=== PATIENT | male | born 1930 | race Caucasian/White ===

== ENCOUNTER → 2016-12-28 | Day surgery (SDC) | payer MEDICARE ==
[~2016-12-28] VITALS: Ht 162.6 cm; Wt 79.0 kg
[~2016-12-28] MED LIST: ACETAMINOPHEN 1000 MG/100 ML VIAL IV ONE; AMLO10TA2 PO; ASPI81TA19; CARV12.52 PO; CHLORHEXIDINE GLUCONATE 2 % 1 PACK (2 CLOTHS) TOPICAL PRN; DO NOT ADM ANY ANTICOAGULANT DRUGS PRN; FURO40TA PO; FUROSEMIDE 40 MG/4 ML VIAL ONE; INSULIN HUMAN REGULAR 1,000 UNITS/10 ML VIAL SQ PRN; IOHEXOL 300 MG/ML 50 ML BTL (for RAD DIAG) ONE; LACTATED RINGER'S 1000 ML IV PRN; LEVO500T8 PO; LEVOFLOXACIN 500 MG PREMIX INJ 100 ML IV SCH; LOSA50TA PO; MAGN1TAB14 PO; MAGN500T4 PO; METOPROLOL TARTRATE 25 MG TAB PO PRN; OMEP20TA PO; ONDANSETRON HCL 4 MG/2 ML VIAL IV PUSH ONE; ONDANSETRON HCL 4 MG/2 ML VIAL IV PUSH PRN; PERC5TAB12 PO; PHENYLEPH/NS 1000 MCG/10 ML SYR IV ONE; POTA-243 PO; POTA-255 PO; POVIDONE IODINE 5% (ANTISEPSIS KIT) 4 APPLICATIONS EACH NARE PRN; PROPOFOL 200 MG/20 ML AMP IV ONE; SIMV20TA PO; SODIUM CHLORID 0.9% 500 ML IV PRN; oxyCODONE/ACETAMINOPHEN 5 MG/325 MG TAB PO PRN
[2016-12-28 09:38] VITALS: BP 158/79; PULSE 68; RESP 16; TEMP 97.5; O2SAT 98
[2016-12-28 09:42] LABS: AUTOMATED NEUTROPHIL # 3.2 TH/MM3 (1.8-7.7); BASOPHIL % 0.5 % (0.0-2.0); EOSINOPHIL # 0.2 TH/MM3 (0-0.4); EOSINOPHIL % 3.4 % (0.0-4.0); HEMATOCRIT 29.6 % (39.0-51.0); LYMPH % 38.9 % (9.0-44.0); LYMPHOCYTE # 2.8 TH/MM3 (1.0-4.8); MEAN CELL VOLUME 88.4 FL (80.0-100.0); MEAN CORPUSCULAR HEMOGLOBIN 29.8 PG (27.0-34.0); MEAN CORPUSCULAR HGB CONC 33.7 % (32.0-36.0); MONO % 12.3 % (0.0-8.0); NEUT % 44.9 % (16.0-70.0); PLATELET COUNT 159 TH/MM3 (150-450); RED BLOOD COUNT 3.35 MIL/MM3 (4.50-5.90); RED CELL DISTRIBUTION WIDTH 15.1 % (11.6-17.2); WHITE BLOOD COUNT 7.1 TH/MM3 (4.0-11.0)
[2016-12-28 09:46] LABS: HEMO FLAGS AUTO DIFF
[2016-12-28 10:18] LABS: BANDS 1 % (0-6); EOSINOPHILS 4 % (0-4); NEUTROPHIL # MANUAL DIFF 2.8 TH/MM3 (1.8-7.7); POLYS (SEG NEUTROPHILS) 39 % (16-70); WBC DIFF SAMPLE 100
[2016-12-28 10:20] LABS: PLATELET ESTIMATE SMEAR NORMAL (NORMAL); PLATELET MORPHOLOGY NORMAL (NORMAL); ROULEAUX PRESENT (NORMAL)
[2016-12-28 10:21] LABS: SCAN/DIFF FINAL DIFF MANUAL
--- NOTE | 2016-12-28 14:54 | PD.OP ---
Operative Report Date of Surgery: December 28, 2016 Preoperative Diagnosis: (1) Renal mass, left Postoperative Diagnosis: (1) Renal mass, left (2) Ureteral mass Procedure: Cystoscopy, transurethral resection of left distal ureteral tumor, left retrograde pyelogram, left ureteroscopy/renoscopy and placement of left ureteral stent Anesthesia: General Surgeon: Nir Mcelroy Web Producer(s): None Operation and Findings: Indication for procedure: Case of a pleasant 86 year-old gentleman with history gross painless hematuria. Recent CT scan demonstrated a greater than 4 cm mass within the left kidney suspicious for malignancy. Presents now for cystoscopy, left retrograde pyelogram and left ureteroscopy with biopsy. Operative procedure in detail: Patient was brought to the operating room suite and placed supine on the cystoscopy table. He was then repositioned in the dorsal lithotomy position and prepped and draped in normal sterile fashion. After an appropriate timeout was undertaken I proceeded with cystoscopic evaluation utilizing the rigid cystoscope with the 20 Brazilian sheath and the 30 lens. The urethra was patent without stricture formation the prostatic urethra was nonobstructing further passive cystoscope within the urinary bladder revealed an approximately 1 cm frondular mass at the left ureteral orifice. No other abnormalities were noted. The cystoscope was exchanged for the second scope with a 24 Brazilian cutting loop and a transurethral resection of this tissue mass was accomplished. The tissue was sent off to pathology. I next exchanged the resectoscope back to the cystoscope and was able to pass a sensor 0.035 wire up the patient's left ureter into the left renal pelvis under fluoroscopic guidance. A 6 Brazilian open-ended catheter was advanced over the wire and the wire was withdrawn. A retrograde Pyelogram study was then performed which demonstrated a filling defect within the left renal pelvis as well as a hydronephrotic left ureter. The guidewire was reintroduced and the open-ended catheter was removed. A ureteral access sheath was then advanced over the wire to engage the distal ureter and the obturator was withdrawn along with the wire. The flexible ureteroscope was then easily advanced through the access sheath up the patient's left ureter and complete left ureteroscopy and renoscopy was performed. The patient was noted to have a frondular tumor mass involving the left renal pelvis consistent with the CT scan findings. Also noted was irregular frondular tissue involving the distal left ureter just proximal to the ureteral orifice. I next withdrew the ureteroscope and the guidewire was reintroduced up the access sheath to the left renal pelvis and the access sheath removed. The cystoscope was reintroduced and the guidewire backloaded the scope and then a 6 Brazilian 24 cm watermelon inspector double-J stent was passed on both cystoscopic and fluoroscopic guidance without difficulty. Once the stent was in proper position the trailing string was removed. The guidewire and cystoscope were then withdrawn and a 16 Brazilian 10 cc George catheter was placed and connected to gravity drainage. The patient tolerated the procedures without complications and was transferred to the PACU in satisfactory condition. Nir Mcelroy MD December 28, 2016 14:54
[2016-12-28 16:55] VITALS: BP 154/87; PULSE 68; RESP 16; TEMP 97.4; O2SAT 96
== END | disposition home or self-care (01) ==
LOC: HSDC 08:45
PROVIDERS: ATTEND Urology
DX: C67.9 Malignant neoplasm of bladder, unspecified (principal); R31.0 Gross hematuria; C79.9 Secondary malignant neoplasm of unspecified site
CPT/HCPCS: 00910; 00912; 52235; 52332; 52351; 74420; 85007; 85027; 88305; C1769; J0131; J1956; J2370; J2405; J3010; J7120; Q9967; J1940

== ENCOUNTER 2017-03-04 11:11 | Inpatient (IN) | payer MEDICARE ==
[~2017-03-04] VITALS: Ht 162.6 cm; Wt 83.4 kg
[~2017-03-04 11:11] MED LIST changes: -ACETAMINOPHEN 1000 MG/100 ML VIAL IV ONE; -ASPI81TA19; +ASPI81TA19 PO; -CHLORHEXIDINE GLUCONATE 2 % 1 PACK (2 CLOTHS) TOPICAL PRN; -DO NOT ADM ANY ANTICOAGULANT DRUGS PRN; -FURO40TA PO; -FUROSEMIDE 40 MG/4 ML VIAL ONE; -INSULIN HUMAN REGULAR 1,000 UNITS/10 ML VIAL SQ PRN; -IOHEXOL 300 MG/ML 50 ML BTL (for RAD DIAG) ONE; -LACTATED RINGER'S 1000 ML IV PRN; -LEVO500T8 PO; -LEVOFLOXACIN 500 MG PREMIX INJ 100 ML IV SCH; -MAGN1TAB14 PO; -MAGN500T4 PO; -METOPROLOL TARTRATE 25 MG TAB PO PRN; -ONDANSETRON HCL 4 MG/2 ML VIAL IV PUSH ONE; -ONDANSETRON HCL 4 MG/2 ML VIAL IV PUSH PRN; -PERC5TAB12 PO; -PHENYLEPH/NS 1000 MCG/10 ML SYR IV ONE; -POTA-243 PO; -POTA-255 PO; -POVIDONE IODINE 5% (ANTISEPSIS KIT) 4 APPLICATIONS EACH NARE PRN; -PROPOFOL 200 MG/20 ML AMP IV ONE; -SIMV20TA PO; -SODIUM CHLORID 0.9% 500 ML IV PRN; -oxyCODONE/ACETAMINOPHEN 5 MG/325 MG TAB PO PRN
[2017-03-08] MEDS ORDERED: SIMV20TA PO (10:19)
[2017-03-08] MEDS ORDERED: FURO1TAB60 PO (10:20)
[2017-03-08] MEDS ORDERED: COZA50TA PO (10:21)
[2017-03-08] MEDS ORDERED: MAGN400T2 PO (10:21)
[2017-03-12] MEDS ORDERED: SODIUM CHLORID 0.9% 500 ML IV PRN (07:15)
[2017-03-12] MEDS ORDERED: POVIDONE IODINE 5% (ANTISEPSIS KIT) 4 APPLICATIONS EACH NARE PRN (07:15)
[2017-03-12] MEDS ORDERED: CHLORHEXIDINE GLUCONATE 2 % 1 PACK (2 CLOTHS) TOPICAL PRN (07:15)
[2017-03-12] MEDS ORDERED: INSULIN HUMAN REGULAR 1,000 UNITS/10 ML VIAL SQ PRN (07:15)
[2017-03-12] MEDS ORDERED: METOPROLOL TARTRATE 25 MG TAB PO PRN (07:15)
[2017-03-12] MEDS ORDERED: LEVOFLOXACIN 500 MG PREMIX INJ 100 ML IV PRN (07:30)
[2017-03-12 07:33] VITALS: BP 168/69; PULSE 60; RESP 16; TEMP 97.6; O2SAT 98
[2017-03-12] MEDS: LACTATED RINGER'S 1000 ML IV PRN (07:35)
[2017-03-12] MEDS ORDERED: fentaNYL CITRATE 250 MCG/5 ML AMP ONE ×2 (08:18→14:59)
[2017-03-12] MEDS ORDERED: MIDAZOLAM HCL 2 MG/2 ML VIAL ONE (08:18)
[2017-03-12] MEDS ORDERED: ACETAMINOPHEN 1000 MG/100 ML VIAL IV ONE (08:18)
[2017-03-12] MEDS ORDERED: HYDROmorphone HCL PF 2 MG/ML VIAL ONE (08:19)
[2017-03-12] MEDS ORDERED: DICLOFENAC SODIUM 37.5 MG/ML VIAL IV PUSH ONE (08:19)
[2017-03-12] MEDS ORDERED: DEXAMETHASONE SOD PHOS 4 MG/ML VIAL ONE (08:19)
[2017-03-12] MEDS ORDERED: FAMOTIDINE 20 MG/2 ML VIAL ONE (08:19)
[2017-03-12] MEDS ORDERED: ALBUMIN HUMAN 25% 12.5 GM/50 ML BAGP IV ONE (08:20)
[2017-03-12] MEDS ORDERED: LACTATED RINGER'S 1000 ML INJ 1,000 ML IV ONE (12:00)
[2017-03-12] MEDS ORDERED: NORMOSOL R INJ 3,000 ML IV ONE (12:00)
[2017-03-12] MEDS ORDERED: PROPOFOL 200 MG/20 ML AMP IV ONE (12:00)
[2017-03-12] MEDS ORDERED: ONDANSETRON HCL 4 MG/2 ML VIAL IV PUSH ONE (12:00)
[2017-03-12] MEDS ORDERED: PHENYLEPH/NS 1000 MCG/10 ML SYR IV ONE (12:00)
[2017-03-12 13:37] LABS: HEMATOCRIT 25.9 % (39.0-51.0); REVIEW FLAG FINAL
[2017-03-12] MEDS ORDERED: [UNRECOGNIZED DRUG - REMARK] IV SCH ×2 (14:02)
[2017-03-12] MEDS ORDERED: SUGAMMADEX SODIUM 200 MG/2 ML VIAL IV PUSH ONE ×2 (14:59)
[2017-03-12 16:12] LABS: AUTOMATED NEUTROPHIL # 7.4 TH/MM3 (1.8-7.7); BASOPHIL % 0.2 % (0.0-2.0); EOSINOPHIL % 0.1 % (0.0-4.0); HEMATOCRIT 31.1 % (39.0-51.0); HEMO FLAGS DIFF FINAL; LYMPH % 14.4 % (9.0-44.0); LYMPHOCYTE # 1.3 TH/MM3 (1.0-4.8); MEAN CELL VOLUME 86.9 FL (80.0-100.0); MEAN CORPUSCULAR HGB CONC 34.5 % (32.0-36.0); MONO % 5.7 % (0.0-8.0); NEUT % 79.6 % (16.0-70.0); PLATELET COUNT 114 TH/MM3 (150-450); RED BLOOD COUNT 3.58 MIL/MM3 (4.50-5.90); RED CELL DISTRIBUTION WIDTH 16.2 % (11.6-17.2); WHITE BLOOD COUNT 9.3 TH/MM3 (4.0-11.0)
[2017-03-12] MEDS: LACTATED RINGER'S 1000 ML INJ 1,000 ML IV SCH (16:26)
--- NOTE | 2017-03-12 16:26 | PD.OP ---
Operative Report Date of Surgery: Mar 12, 2017 Preoperative Diagnosis: (1) Renal mass, left (2) Urothelial carcinoma of kidney Postoperative Diagnosis: (1) Renal mass, left (2) Urothelial carcinoma of kidney Procedure: Cystoscopy, transurethral incision of left distal ureter, fulguration of several small bladder lesions consistent with seeding of transitional cell carcinoma and a robot-assisted laparoscopic left nephro ureterectomy Anesthesia: General Surgeon: Nir Mcelroy Custom Car Builder(s): Alex Ramos Operation and Findings: Indication for procedure: This is a pleasant 86 year-old gentleman who was recently discovered to have 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 Operative procedure in detail: Patient was brought to the operating suite and placed supine on the OR table. He was then placed under general endotracheal anesthesia. He was then repositioned in the dorsolithotomy position and prepped and draped in normal sterile fashion. After appropriate timeout was undertaken I proceeded with cystoscopic evaluation utilizing the rigid cystoscope with a 20 Guatemalan sheath and 30 lens. The previously placed left double-J stent could be seen protruding from the left ureteral orifice. Also noted were several small less than 1 mm lesions involving the posterior right and left lateral wolfe of the bladder consistent with seeding of the transitional cell carcinoma. The 24 Guatemalan resectoscope set up with cutting loop was then utilized and these small tiny recurrent lesions which were very superficial were fulgurated. I then changed out the loop for a Hernandez knife and performed a transurethral incision around the left ureteral orifice. I extended the incision circumferentially down until the underlying perivesical fat was seen. The bladder was drained of fluid and a George catheter placed and connected to gravity drainage. The patient was next repositioned in the right lateral recumbent position and the table flexed to separate the pelvis from the thorax. The patient was held in this position with a beanbag and all pressure points were adequately padded. I next proceeded with creating a pneumoperitoneum with severe as needle in standard fashion. Subsequent to this the camera port was placed with the visual obturator and a 3 remaining robotic arm ports as well as a pastrycook's assistant port placed under direct vision. With all the ports position and the robot was docked in standard fashion. Repositioned myself over at the [place] console my associate Dr. Alex Ramos remained at the bedside to actuarial assistant. I then proceeded to mobilize left: By cutting along the line of Toldt and reflecting the colon medially. The kidney was then mobilized superiorly laterally and inferiorly. After tedious dissection the hilar vessels were identified however took some time due to significant amount of perirenal fat in the area. The vessels were divided ligated with the endovascular stapling device. The ureter was identified and mobilized inferiorly as much as possible with the robot. The remaining attachments of the left kidney were divided ligated and the specimen placed in Endo Catch specimen bag. While freeing up the activity in the proximal ureter disrupted from the kidney itself thus decision was made to place the specimen in the specimen bag. Next the peritoneum was dropped down to 5 mmHg and careful specialty was made factor bleeding and was noted. The patient did have steady oozing of blood throughout the procedure and estimated blood loss was approximately 4 units. He did receive 4 units packed red blood cells as well as 2 units fresh frozen plasma during the procedure. The robot was undocked and the robotic ports were removed. The pastrycook's assistant port as well as a Report left in place to facilitate extending the incision to remove the specimen whereby both these ports sites were connected with a #10 blade. The specimen was easily delivered within this Endo Catch specimen bag. I then was able to insert my hand and track the ureter inferiorly down to the bladder tumors attachment and was easily able to pluck the ureter off the bladder. The ureter was then sent off to pathology along with the kidney specimen. Careful specialty is made factor bleeding and was noted. A 10 mm JACE drain was then placed through one of the robotic port sites and connected to a bulb syringe. The remaining to robotic port sites were closed with a skin stapling device and the newly created lower midline incision was closed utilizing a #1 PDS suture to reapproximate the deep fascia and the skin stapling device to reapproximate the skin edges. Sterile dressings were placed over the wounds. The patient tolerated the procedures without compensations and was transferred to the PACU in satisfactory condition. Nir Mcelroy MD Mar 12, 2017 16:26
[2017-03-12] MEDS ORDERED: DO NOT ADM ANY ANTICOAGULANT DRUGS PRN (16:28)
[2017-03-12] MEDS ORDERED: Post-op Orders (for Pharmacy) MISC XX ONE (16:30)
[2017-03-12] MEDS ORDERED: HYDROmorphone HCL PCA 6 MG/30 ML IV SCH (16:30)
[2017-03-12] MEDS ORDERED: NALOXONE HCL 0.4 MG/ML AMP IV PRN ×2 (16:30)
[2017-03-12] MEDS ORDERED: SODIUM CHLORIDE 0.9% FLUSH 10 ML FLUSH IV FLUSH PRN ×2 (16:30→18:45)
[2017-03-12 16:35] LABS: APTT (PATIENT) 25.9 SEC (24.3-30.1); INTERNATIONAL NORMALIZED RATIO 1.2 RATIO; PROTHROMBIN TIME - PATIENT 13.9 SEC (9.8-11.6)
--- NOTE | 2017-03-12 17:07 | RADRPT ---
EXAM DATE/TIME: 03/12/2017 16:38 [facility] COMPARISON: CHEST SINGLE AP, May 03, 2016, 10:14. INDICATIONS : Post central line placement. MEDICAL HISTORY : None. SURGICAL HISTORY : Pacemaker. CABG. ENCOUNTER: Initial ACUITY: 1 day PAIN SCORE: Non-responsive. LOCATION: Bilateral chest FINDINGS: Pacemaker device is noted with control pack over the left chest. Right neck sheath and central line a re present in good position. There is no evidence of pneumothorax or other complication of placement. There is mild vascular congestion and central edema. Heart size is borderline CONCLUSION: Satisfactory line positioning. Vascular congestion and mild parenchymal edema similar to prior Kye Hoang MD on March 12, 2017 at 17:00 Board Certified Radiologist. This report was verified electronically.
--- NOTE | 2017-03-12 18:29 | PD.CONS ---
[facility] Service Critical Care Medicine Consult Requested By Dr. Mcelroy Reason for Consult Critical care management Primary Care Physician Non-Staff History of Present Illness 86-year-old Brazilian speaking male. Date of admission 03/12/2017. Date of consultation 03/12/2017. 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 Today, patient had a cystoscopy with transurethral incision of the left distal ureter with fulguration feeding from transitional course Zosyn with a robot-assisted laparotomy and EBL was 2500 cc. Patient received 1 g TXA, 4 PRBCs, 625 cc FFP and 100 g albumin, 3500 cc crystalloid. 400 cc urine output. Patient is actually hypertensive postprocedure. Noted she is Brazilian speaking and not interactive at the present time. 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 Review of Systems ROS Limitations: Language Barrier Past Family Social History Allergies: Coded Allergies: Penicillin (Verified Allergy, Severe, Rash, TEMP & DIZZINESS, 03/12/17) Past Medical History History of atrial fibrillation/symptom acute bradycardia History of cataract Coronary artery disease Hypertension Gastroesophageal reflux disease Dyslipidemia DJD BPH Erectile dysfunction Chronic diastolic heart failure Past Surgical History Prostatectomy Right thumb T&A TURP Cataract bilateral/Bilateral IOC CABG 5 [employer] pacemaker Reported Medications Prilosec 20 by mouth daily Magnesium oxide 400 mill grams by mouth daily Norvasc 10 mg by mouth daily Coreg 12.5 mg by mouth twice a day Aspirin 81 mg by mouth daily Simvastatin 20 mg by mouth daily Cozaar 50 mill grams by mouth daily Lasix 40 mg by mouth daily Active Ordered Medications Reviewed in EMR Family History Father with heart disease Social History Positive social alcohol, no current tobacco or IV drug use Physical Exam Vital Signs Vital Signs Date Time Temp Pulse Resp B/P Pulse Ox O2 Delivery O2 Flow Rate FiO2 03/12/17 17:12 16 03/12/17 16:25 98.3 60 20 169/78 99 Nasal Cannula 2 03/12/17 07:33 97.6 60 16 168/69 98 Physical Exam GENERAL: 86-year-old male, resting in bed in no acute distress SKIN: Warm and dry. No rash HEAD: Atraumatic. Normocephalic. EYES: Pupils equal and round about 2 mm bilaterally and reactive. No scleral icterus. No injection or drainage. ENT: No nasal bleeding or discharge. Mucous membranes pink and moist. NECK: Trachea midline. No JVD. CARDIOVASCULAR: H Dc paced. S1, S2 no S4. Calcific murmur RESPIRATORY: You fine crackles patient bases bilaterally. No wheeze.. Breath sounds equal bilaterally. GASTROINTESTINAL: Abdomen soft, non-tender, nondistended. JACE left lower quadrant serosanguineous drainage. Midline incision is clean dry and intact. Trocar sites without erythema.. MUSCULOSKELETAL: Extremities without significant peripheral edema. No obvious deformities. NEUROLOGICAL: Awake and alert. No obvious cranial nerve deficits. Motor grossly within normal limits. Five out of 5 muscle strength in the arms and legs. Normal speech. Laboratory Laboratory Tests Test 03/12/17 03/12/17 03/12/17 03/12/17 07:27 13:25 14:09 14:38 Blood Type A POSITIVE Antibody Screen NEGATIVE Crossmatch Leukocyte-Reduced Leukocyte-Reduced Red Blood Red Blood Cells Cells Blood Bank Comment Hemoglobin 8.7 Hematocrit 25.9 Test 03/12/17 03/12/17 03/12/17 14:57 15:06 15:55 Blood Type A POSITIVE Crossmatch Leukocyte-Reduced Leukocyte-Reduced Red Blood Red Blood Cells Cells Blood Bank Comment White Blood Count 9.3 Red Blood Count 3.58 Hemoglobin 10.7 Hematocrit 31.1 Mean Corpuscular Volume 86.9 Mean Corpuscular Hemoglobin 30.0 Mean Corpuscular Hemoglobin 34.5 Concent Red Cell Distribution Width 16.2 Platelet Count 114 Mean Platelet Volume 8.0 Neutrophils (%) (Auto) 79.6 Lymphocytes (%) (Auto) 14.4 Monocytes (%) (Auto) 5.7 Eosinophils (%) (Auto) 0.1 Basophils (%) (Auto) 0.2 Neutrophils # (Auto) 7.4 Lymphocytes # (Auto) 1.3 Monocytes # (Auto) 0.5 Eosinophils # (Auto) 0.0 Basophils # (Auto) 0.0 CBC Comment DIFF FINAL Differential Comment Prothrombin Time 13.9 Prothromb Time International 1.2 Ratio Activated Partial 25.9 Thromboplast Time Result Diagram: 03/12/17 1555 Imaging Last Impressions Chest X-Ray 03/12/17 0000 Signed Impressions: Service Date/Time: Sunday, March 12, 2017 16:38 - CONCLUSION: Satisfactory line positioning. 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 Titrate for pain management Acetaminophen for fever CV: Coronary artery disease status post CABG 5 History of atrial fibrillation/sinus bradycardia status post [employer] pacemaker atrially paced ventricular sensed Hypertension Dyslipidemia Chronic diastolic heart failure EF 50-55% Currently on LR 125 cc an hour. As needed labetalol/hydralazine/Nitropaste for blood pressure control Resume home medications of Norvasc 10 daily and Coreg 12.5 mg by mouth twice a day Hold aspirin 81 mg daily with recent surgery Holding Cozaar 50 mill grams by mouth daily light of acute kidney injury Holding Lasix 40 by mouth daily light of acute kidney injury Holding simvastatin 20 no grams by mouth daily. Resume when clinically indicated Resp: Nasal cannula to maintain saturations greater than equal to 90% Incentive Spirometry while awake 03/11 chest x-ray postop revealed mild pulmonary edema GI: Gastroesophageal reflux disease Advance diet per urology currently nothing by mouth Patient is on Prilosec 20 mg by mouth daily at home for gastroesophageal reflux disease. Protonix initiated here Bowel protocol initiated : Postop day #0 Cystoscopy, transurethral incision of left distal ureter, fulguration of several small bladder lesions consistent with seeding of transitional cell carcinoma and a robot-assisted laparoscopic left nephro ureterectomy Dr. Mcelroy Patient is a JACE in the left lower quadrant. Management per urology Endo: Sliding-scale insulin if indicated to maintain euglycemia Renal: Acute kidney injury? Baseline creatinine is within normal limits. Currently currently 1.7. Recheck in AM. Currently on LR to 125 cc an hour Heme: Normocytic anemia Thrombocytopenia Received 4 units PRBCs, 6 25 cc FFP, 1 g T XA in OR. Follow-up CBC in a.m. ID: Received Levaquin 250 mg IV daily 3 dosages per urology Received 500 mg Levaquin in OR FEN: Replacing electrolytes as clinically indicated. MSK: PT evaluate and treat Access - Right IJ Cordis with dual-lumen day #1 placed in OR - Left radial arterial line day 1 placed in OR Prophylaxis - GI - pantoprazole - DVT - SCD/heparin subcutaneous Critical Care: The total critical care time was 45 minutes. Time to perform other separately billable procedures was not included in the critical care time. Code Status Full code Discussed Condition With Patient. Care plan discussed and all questions answered. Nirmal Villatoro MD Mar 12, 2017 18:29
[2017-03-12 18:35] VITALS: BP 151/83; PULSE 60; RESP 15; TEMP 97.2; O2SAT 98
[2017-03-12] MEDS ORDERED: MISCELLANEOUS NURSING INFORMATION XX SCH (18:45)
[2017-03-12] MEDS ORDERED: CHLORHEXIDINE GLUCONATE 2 % 1 PACK (2 CLOTHS) TOP PRN (18:45)
[2017-03-12] MEDS ORDERED: MAGNESIUM HYDROXIDE SUSP 30 ML CUP PO PRN (18:45)
[2017-03-12] MEDS ORDERED: LACTULOSE SYRUP 20 GM/30 ML CUP PO PRN (18:45)
[2017-03-12] MEDS ORDERED: RESP: ALBUTEROL 2.5 MG/3 ML NEB (PRN) INH (18:45)
[2017-03-12] MEDS ORDERED: SENNOSIDES 8.6 MG TAB PO PRN (18:45)
[2017-03-12] MEDS ORDERED: NITROGLYCERIN 2% OINT 1 GM PACKET TOPICAL PRN (18:45)
[2017-03-12] MEDS ORDERED: ACETAMINOPHEN 325 MG TAB PO PRN (18:45)
[2017-03-12] MEDS ORDERED: BISACODYL 10 MG SUPP RECTAL PRN (18:45)
[2017-03-12] MEDS ORDERED: ONDANSETRON HCL 4 MG/2 ML VIAL IV PRN (18:45)
[2017-03-12 20:00] VITALS: BP 176/82; PULSE 90; RESP 15; TEMP 98.1; O2SAT 100
[2017-03-12] MEDS ORDERED: SODIUM CHLORIDE 0.9% FLUSH 10 ML FLUSH IV FLUSH SCH (21:00)
[2017-03-12] MEDS ORDERED: CARVEDILOL 12.5 MG TAB PO SCH (21:00)
[2017-03-12] MEDS: SODIUM CHLORIDE 0.9% FLUSH 10 ML FLUSH IV FLUSH SCH (21:40)
[2017-03-12] MEDS: DOCUSATE SODIUM 50 MG/SENNA 8.6 MG TAB PO SCH (22:08)
[2017-03-12] MEDS: PCA - TOTAL MG DILAUDID DELIVERED PER SHIFT OTHER SCH (22:14)
[2017-03-12 22:42] VITALS: O2SAT 100
[2017-03-12 23:00] VITALS: PULSE 61
[2017-03-12] MEDS ORDERED: ALBUMIN HUMAN 25% 25 GM/100 ML BAGP IV ONE (23:45)
[2017-03-12] MEDS ORDERED: SODIUM CHLOR 0.9% 250 ML INJ 250 ML IV ONE (23:45)
[2017-03-13] VITALS (13 sets, daily range): BP systolic 121–174; BP diastolic 41–89; PULSE 60–93; RESP 13–24; TEMP 97.7–99.4; O2SAT 96–100
[2017-03-13 00:23] LABS: MEAN CELL VOLUME 86.6 FL (80.0-100.0); MEAN CORPUSCULAR HEMOGLOBIN 30.1 PG (27.0-34.0); MEAN CORPUSCULAR HGB CONC 34.8 % (32.0-36.0); PLATELET COUNT 133 TH/MM3 (150-450); RED BLOOD COUNT 2.77 MIL/MM3 (4.50-5.90); RED CELL DISTRIBUTION WIDTH 16.2 % (11.6-17.2); REVIEW FLAG FINAL; WHITE BLOOD COUNT 10.3 TH/MM3 (4.0-11.0)
[2017-03-13 00:32] LABS: APTT (PATIENT) 23.9 SEC (24.3-30.1); INTERNATIONAL NORMALIZED RATIO 1.3 RATIO
[2017-03-13 00:40] LABS: BICARBONATE 25.3 MEQ/L (21.0-32.0); MAGNESIUM 1.9 MG/DL (1.5-2.5)
[2017-03-13] MEDS: LACTATED RINGER'S 1000 ML INJ 1,000 ML IV SCH ×3 (01:13→17:30)
[2017-03-13] MEDS: CHLORHEXIDINE GLUCONATE 2 % 1 PACK (2 CLOTHS) TOP SCH (03:32)
[2017-03-13] MEDS: PCA - TOTAL MG DILAUDID DELIVERED PER SHIFT OTHER SCH ×3 (06:00→22:00)
[2017-03-13 06:17] LABS: HEMATOCRIT 21.8 % (39.0-51.0); MEAN CELL VOLUME 84.2 FL (80.0-100.0); MEAN CORPUSCULAR HEMOGLOBIN 30.3 PG (27.0-34.0); PLATELET COUNT 88 TH/MM3 (150-450); RED BLOOD COUNT 2.59 MIL/MM3 (4.50-5.90); RED CELL DISTRIBUTION WIDTH 16.2 % (11.6-17.2); WHITE BLOOD COUNT 8.3 TH/MM3 (4.0-11.0)
[2017-03-13 06:19] LABS: REVIEW FLAG FINAL
[2017-03-13 06:38] LABS: BICARBONATE 25.5 MEQ/L (21.0-32.0); POTASSIUM 3.7 MEQ/L (3.5-5.1)
[2017-03-13] MEDS ORDERED: LEVOFLOXACIN 500 MG PREMIX INJ 100 ML IV SCH (08:00)
--- NOTE | 2017-03-13 08:03 | HHI.CCPN ---
Subjective Remarks/Hospital Course 86-year-old [place] speaking male. Date of admission 03/12/2017. Date of consultation 03/12/2017. Past medical history includes 6 minute bradycardia status post [employer] pacemaker H lipase ventricle since, coronary disease status post CABG 5, coronary disease, hypertension, dyslipidemia, BPH, ED, gastroesophageal reflux disease. Today, patient had a cystoscopy with transurethral incision of the left distal ureter with fulguration feeding from transitional course Zosyn with a robot-assisted laparotomy and EBL was 2500 cc. Patient received 1 g TXA, 4 PRBCs, 625 cc FFP and 100 g albumin, 3500 cc crystalloid. 400 cc urine output. Patient is actually hypertensive postprocedure. Noted he is [place] speaking and not interactive at the present time. 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 03/13: Alert. Well perfused. Urine output good. Minor oozing JACE drain site. Objective Vital Signs Date Time Temp Pulse Resp B/P Pulse Ox O2 Delivery O2 Flow Rate FiO2 03/13/17 06:00 15 03/13/17 04:00 100 Ventilator 03/13/17 04:00 98.1 89 164/70 03/12/17 22:42 2.00 Intake and Output 03/12/17 03/12/17 03/13/17 08:00 16:00 00:00 Intake Total 6409 ml Output Total 3210 ml Balance 3199 ml Result Diagram: 03/13/17 0600 03/13/17 0600 Imaging Last Impressions Chest X-Ray 03/12/17 0000 Signed Impressions: Service Date/Time: Sunday, March 12, 2017 16:38 - CONCLUSION: Satisfactory line positioning. Vascular congestion and mild parenchymal edema similar to prior Kye Hoang MD Objective Remarks GENERAL: 86-year-old male, no acute distress SKIN: Warm and dry. No rash HEAD: Atraumatic. Normocephalic. EYES: No scleral icterus. No injection or drainage. ENT: No nasal bleeding or discharge. Mucous membranes pink and moist. NECK: Trachea midline. Airway widely patent. CARDIOVASCULAR: H Dc paced. S1, S2 no S4. Calcific murmur RESPIRATORY: You fine crackles patient bases bilaterally. No wheeze.. Breath sounds equal bilaterally. GASTROINTESTINAL: Abdomen soft, non-tender, nondistended. JACE left lower quadrant serosanguineous drainage. Midline incision is clean dry and intact. Trocar sites clean. MUSCULOSKELETAL: Extremities without significant peripheral edema. No obvious deformities. Well perfused. NEUROLOGICAL: Awake and alert. No obvious cranial nerve deficits. Motor grossly within normal limits. Five out of 5 muscle strength in the arms and legs. Clear speech. A/P Assessment and Plan Neuro/Psych: Postoperative pain management Currently written for Dilaudid ANALYSIS INTERNSHIP. Titrate for pain management Acetaminophen for fever CV: Coronary artery disease status post CABG 5 History of atrial fibrillation/sinus bradycardia status post [employer] pacemaker atrially paced ventricular sensed Hypertension Dyslipidemia Chronic diastolic heart failure EF 50-55% Currently on LR 125 cc an hour. As needed labetalol/hydralazine/Nitropaste for blood pressure control Resume home medications of Norvasc 10 daily and Coreg 12.5 mg by mouth twice a day Hold aspirin 81 mg daily with recent surgery Holding Cozaar 50 mill grams by mouth daily light of acute kidney injury Holding Lasix 40 by mouth daily light of acute kidney injury Holding simvastatin 20 no grams by mouth daily. Resume when clinically indicated Resp: Nasal cannula to maintain saturations greater than equal to 90% Incentive Spirometry while awake 03/11 chest x-ray postop revealed mild pulmonary edema GI: Gastroesophageal reflux disease Advance diet per urology currently nothing by mouth Patient is on Prilosec 20 mg by mouth daily at home for gastroesophageal reflux disease. Protonix initiated here Bowel protocol initiated : Postop day #0 Cystoscopy, transurethral incision of left distal ureter, fulguration of several small bladder lesions consistent with seeding of transitional cell carcinoma and a robot-assisted laparoscopic left nephro ureterectomy Dr. Mcelroy Patient is a JACE in the left lower quadrant. Management per urology Endo: Sliding-scale insulin if indicated to maintain euglycemia Renal: Acute kidney injury? Baseline creatinine is within normal limits. Currently currently 1.7. Recheck in AM. Currently on LR to 125 cc an hour Heme: Normocytic anemia Thrombocytopenia Received 4 units PRBCs, 6 25 cc FFP, 1 g T XA in OR. Follow-up CBC in a.m. ID: Received Levaquin 250 mg IV daily 3 dosages per urology Received 500 mg Levaquin in OR FEN: Replacing electrolytes as clinically indicated. MSK: PT evaluate and treat Access - Right IJ Cordis with dual-lumen day #1 placed in OR - Left radial arterial line day 1 placed in OR Prophylaxis - GI - pantoprazole - DVT - SCD/heparin subcutaneous Overall impression: Stable hemodynamics and respiratory status. Dillon Lew MD Mar 13, 2017 08:03
[2017-03-13] MEDS: SODIUM CHLORIDE 0.9% FLUSH 10 ML FLUSH IV FLUSH SCH ×2 (09:00→21:00)
[2017-03-13] MEDS: LEVOFLOXACIN/DEXTROSE 250 MG/50 ML IV SCH (09:03)
[2017-03-13] MEDS: DOCUSATE SODIUM 50 MG/SENNA 8.6 MG TAB PO SCH ×2 (09:03→21:11)
--- NOTE | 2017-03-13 10:28 | HHI.PR ---
Subjective Patient symptoms today Postop day #1 Pain well managed Feels hungry Denies flatus or bowel movement Objective Vital Signs Vital Signs Date Time Temp Pulse Resp B/P Pulse Ox O2 Delivery O2 Flow Rate FiO2 03/13/17 06:00 15 03/13/17 04:00 100 Ventilator 03/13/17 04:00 98.1 89 19 164/70 100 03/13/17 02:15 98.0 65 16 159/60 100 03/13/17 01:15 97.8 60 14 135/51 100 Automatic Cuff 03/13/17 00:00 97.7 63 17 121/50 100 03/12/17 23:00 61 03/12/17 22:42 100 2.00 03/12/17 22:14 19 03/12/17 20:00 98.1 90 15 176/82 100 03/12/17 19:00 100 Nasal Cannula 2.00 03/12/17 18:35 97.2 60 15 151/83 98 03/12/17 18:00 61 20 159/75 97 Nasal Cannula 2 03/12/17 17:45 82 20 164/83 97 Nasal Cannula 2 03/12/17 17:30 79 20 171/82 97 Nasal Cannula 2 03/12/17 17:15 77 20 164/81 98 Nasal Cannula 2 03/12/17 17:12 16 03/12/17 17:00 74 20 159/77 98 Nasal Cannula 2 03/12/17 16:45 73 20 159/75 97 Nasal Cannula 2 03/12/17 16:25 98.3 60 20 169/78 99 Nasal Cannula 2 Result Diagram: 03/13/17 0600 03/13/17 0600 Other Results JACE 225 cc serosanguineous output last shift George catheter draining well (replaced with 18 Maltese catheter early this morning) Objective Remarks Abdomen soft, nondistended, nontender Wound sites clean Small amount serosanguineous drainage around JACE site Extremities well-perfused, nontender Medications and IVs Current Medications Medications (Trade) Dose Ordered Sig/Jenny Route Start Time Stop Time Status Last Admin Lactated Ringer's 1,000 ml @ 30 mls/hr Q24H PRN IV 03/12/17 07:15 03/15/17 07:14 03/12/17 07:35 Sodium Chloride 500 ml @ 30 mls/hr [id number] PRN IV 03/12/17 07:15 03/15/17 07:14 (Lr 1000 ml Inj) 1,000 ml @ 125 mls/hr Q8H IV 03/12/17 16:26 03/13/17 08:26 (NS Flush) 2 ml UNSCH PRN IV FLUSH 03/12/17 16:30 (NS Flush) 2 ml BID IV FLUSH 03/12/17 21:00 03/13/17 09:00 (Heparin Inj) 5,000 units Q12H SQ 03/13/17 15:30 (Narcan Inj) 0.4 mg UNSCH PRN IV 03/12/17 16:30 (Dilaudid RADIOLOGIC TECHNOLOGY PROGRAM DIRECTOR Inj) 6 mg UNSCH IV 03/12/17 16:30 03/12/17 17:12 RADIOLOGIC TECHNOLOGY PROGRAM DIRECTOR Dosage Infused (Pha) 1 Q8HR OTHER 03/12/17 16:30 03/13/17 06:00 Miscellaneous Information ALL NURSING DEPARTME... UNSCH PRN .XX 03/12/17 16:28 03/13/17 16:27 (Levaquin 250 Mg Premix Inj) 50 ml @ 50 mls/hr Q24H IV 03/13/17 08:00 03/15/17 08:59 03/13/17 09:03 (Trandate Inj) 10 mg Q1HR PRN IV PUSH 03/12/17 18:30 (Apresoline Inj) 10 mg Q1HR PRN IV PUSH 03/12/17 18:45 (Nitroglycerin 2% Oint) 2 inch Q6HR PRN TOPICAL 03/12/17 18:45 (Tylenol) 650 mg Q6H PRN PO 03/12/17 18:45 (Zofran Inj) 4 mg Q6H PRN IV 03/12/17 18:45 Miscellaneous Information 1 Q361D XX 03/12/17 18:45 03/12/17 21:40 (Chlorhexidine 2% Cloth) 3 pack Taper DAILY@04 TOP 03/13/17 04:00 03/09/18 03:59 03/13/17 03:32 (Chlorhexidine 2% Cloth) 3 pack UNSCH PRN TOP 03/12/17 18:45 (Gabby-Colace) 1 tab BID PO 03/12/17 21:00 03/13/17 09:03 (Milk Of Magnesia Liq) 30 ml Q12H PRN PO 03/12/17 18:45 (Senokot) 17.2 mg Q12H PRN PO 03/12/17 18:45 (Dulcolax Supp) 10 mg DAILY PRN RECTAL 03/12/17 18:45 (Lactulose Liq) 30 ml DAILY PRN PO 03/12/17 18:45 Assessment and Plan Assessment and Plan Urologic impression: Status post robot-assisted laparoscopic left nephro ureterectomy / surgically stable Plan: #1 appreciate assistance with postoperative management by engineer and geologist #2 agree with transfusion packed red blood cells #3 clear liquid diet as tolerated #4 continue with JACE drain #5 continue with George catheter to gravity drainage #6 out of bed to chair this evening Nir Mcelroy MD Mar 13, 2017 10:28
[2017-03-13] MEDS: LABETALOL HCL 100 MG/20 ML VIAL IV PUSH PRN ×2 (14:33→18:45)
[2017-03-13] MEDS: HEPARIN SODIUM - SQ 10,000 UNITS/ML VIAL SQ SCH (15:17)
[2017-03-13] MEDS: hydrALAZINE HCL 20 MG/ML VIAL IV PUSH PRN ×2 (15:56→19:23)
[2017-03-14] VITALS (15 sets, daily range): BP systolic 118–170; BP diastolic 38–80; PULSE 61–98; RESP 14–20; TEMP 97.6–99; O2SAT 93–98
[2017-03-14] MEDS: LABETALOL HCL 100 MG/20 ML VIAL IV PUSH PRN ×2 (01:59→08:11)
[2017-03-14] MEDS: LACTATED RINGER'S 1000 ML INJ 1,000 ML IV SCH ×2 (03:05→08:26)
[2017-03-14] MEDS: CHLORHEXIDINE GLUCONATE 2 % 1 PACK (2 CLOTHS) TOP SCH (03:06)
[2017-03-14] MEDS: hydrALAZINE HCL 20 MG/ML VIAL IV PUSH PRN (03:06)
[2017-03-14] MEDS: HEPARIN SODIUM - SQ 10,000 UNITS/ML VIAL SQ SCH ×2 (03:06→15:00)
[2017-03-14 03:26] LABS: BASOPHIL % 0.4 % (0.0-2.0); EOSINOPHIL # 0.2 TH/MM3 (0-0.4); EOSINOPHIL % 2.5 % (0.0-4.0); HEMATOCRIT 23.1 % (39.0-51.0); LYMPH % 22.6 % (9.0-44.0); MEAN CELL VOLUME 84.2 FL (80.0-100.0); MEAN CORPUSCULAR HEMOGLOBIN 28.7 PG (27.0-34.0); MEAN CORPUSCULAR HGB CONC 34.1 % (32.0-36.0); NEUT % 56.5 % (16.0-70.0); PLATELET COUNT 89 TH/MM3 (150-450); RED BLOOD COUNT 2.74 MIL/MM3 (4.50-5.90); RED CELL DISTRIBUTION WIDTH 17.8 % (11.6-17.2); WHITE BLOOD COUNT 8.8 TH/MM3 (4.0-11.0)
[2017-03-14 03:30] LABS: HEMO FLAGS AUTO DIFF
[2017-03-14 03:49] LABS: BICARBONATE 28.4 MEQ/L (21.0-32.0); POTASSIUM 3.6 MEQ/L (3.5-5.1)
[2017-03-14 04:10] LABS: PLATELET ESTIMATE SMEAR LOW (NORMAL); PLATELET MORPHOLOGY NORMAL (NORMAL); SCAN/DIFF AUTO DIFF CONFIRMED
[2017-03-14] MEDS: PCA - TOTAL MG DILAUDID DELIVERED PER SHIFT OTHER SCH ×2 (06:00→12:57)
[2017-03-14] MEDS: DOCUSATE SODIUM 50 MG/SENNA 8.6 MG TAB PO SCH ×2 (08:11→20:08)
[2017-03-14] MEDS: SODIUM CHLORIDE 0.9% FLUSH 10 ML FLUSH IV FLUSH SCH ×2 (08:11→20:09)
[2017-03-14] MEDS: LEVOFLOXACIN/DEXTROSE 250 MG/50 ML IV SCH (08:21)
--- NOTE | 2017-03-14 11:48 | HHI.PR ---
Subjective Patient symptoms today Postoperative day #2 Denies pain Tolerating oral intake well Denies bowel movement Objective Vital Signs Vital Signs Date Time Temp Pulse Resp B/P Pulse Ox O2 Delivery O2 Flow Rate FiO2 03/14/17 10:00 65 03/14/17 08:03 93 21 03/14/17 08:00 99.0 76 14 159/69 95 03/14/17 08:00 76 03/14/17 08:00 95 Nasal Cannula 2.00 03/14/17 06:00 82 03/14/17 06:00 22 03/14/17 04:00 97.6 92 15 118/38 95 03/14/17 04:00 92 03/14/17 02:00 79 03/14/17 00:42 95 Nasal Cannula 3.00 03/14/17 00:15 152/43 03/14/17 00:00 72 03/14/17 00:00 97.8 72 14 170/57 96 03/13/17 22:00 16 03/13/17 22:00 79 03/13/17 20:00 96 Nasal Cannula 2.00 03/13/17 20:00 99.4 68 20 138/41 96 03/13/17 20:00 68 03/13/17 16:00 99.2 77 24 164/70 97 03/13/17 12:00 98.3 88 21 155/58 98 Intake & Output 03/14/17 03/14/17 07:00 19:00 Intake Total 3265 ml Output Total 1315 ml Balance 1950 ml Intake Oral 1184 ml IV Total 2081 ml Output Urine Total 1175 ml Drainage Total 140 ml # Bowel Movements 0 Result Diagram: 03/14/1731503/14/17315 Other Results JACE output decreasing Objective Remarks Abdomen soft, nondistended, nontender Wound sites clean Small amount serosanguineous drainage around JACE site Extremities well-perfused, nontender Medications and IVs Current Medications Medications (Trade) Dose Ordered Sig/Jenny Route Start Time Stop Time Status Last Admin Lactated Ringer's 1,000 ml @ 30 mls/hr Q24H PRN IV 03/12/17 07:15 03/15/17 07:14 03/12/17 07:35 Sodium Chloride 500 ml @ 30 mls/hr [id number] PRN IV 03/12/17 07:15 03/15/17 07:14 (Lr 1000 ml Inj) 1,000 ml @ 125 mls/hr Q8H IV 03/12/17 16:26 03/14/17 03:05 (NS Flush) 2 ml UNSCH PRN IV FLUSH 03/12/17 16:30 03/13/17 19:23 (NS Flush) 2 ml BID IV FLUSH 03/12/17 21:00 03/14/17 08:11 (Heparin Inj) 5,000 units Q12H SQ 03/13/17 15:30 03/14/17 03:06 (Narcan Inj) 0.4 mg UNSCH PRN IV 03/12/17 16:30 (Dilaudid STEREO OPERATOR Inj) 6 mg UNSCH IV 03/12/17 16:30 03/12/17 17:12 STEREO OPERATOR Dosage Infused (Pha) 1 1 Q8HR OTHER 03/12/17 16:30 03/14/17 06:00 (Levaquin 250 Mg Premix Inj) 50 ml @ 50 mls/hr Q24H IV 03/13/17 08:00 03/15/17 08:59 03/14/17 08:21 (Trandate Inj) 10 mg Q1HR PRN IV PUSH 03/12/17 18:30 03/14/17 08:11 (Apresoline Inj) 10 mg Q1HR PRN IV PUSH 03/12/17 18:45 03/14/17 03:06 (Nitroglycerin 2% Oint) 2 inch Q6HR PRN TOPICAL 03/12/17 18:45 (Tylenol) 650 mg Q6H PRN PO 03/12/17 18:45 (Zofran Inj) 4 mg Q6H PRN IV 03/12/17 18:45 Miscellaneous Information 1 Q361D XX 03/12/17 18:45 03/12/17 21:40 (Chlorhexidine 2% Cloth) 3 pack Taper DAILY@04 TOP 03/13/17 04:00 03/09/18 03:59 03/14/17 03:06 (Chlorhexidine 2% Cloth) 3 pack UNSCH PRN TOP 03/12/17 18:45 (Gabby-Colace) 1 tab BID PO 03/12/17 21:00 03/14/17 08:11 (Milk Of Magnesia Liq) 30 ml Q12H PRN PO 03/12/17 18:45 (Senokot) 17.2 mg Q12H PRN PO 03/12/17 18:45 (Dulcolax Supp) 10 mg DAILY PRN RECTAL 03/12/17 18:45 (Lactulose Liq) 30 ml DAILY PRN PO 03/12/17 18:45 Assessment and Plan Assessment and Plan Urologic impression: Status post robot-assisted laparoscopic left nephro ureterectomy / surgically stable Plan: #1 appreciate assistance with postoperative management by bag adjuster #2 physical therapy consult for ambulation exercises #3 advance to regular diet diet as tolerated #4 continue with JACE drain #5 continue with George catheter to gravity drainage #6 check pathology when available #7 urologically stable to transfer to surgical floor #8 DC STEREO OPERATOR #9 DC triple-lumen catheter Nir Mcelroy MD Mar 14, 2017 11:48
[2017-03-14] MEDS ORDERED: ENALAPRIL MALEATE 2.5 MG TAB PO PRN (12:00)
[2017-03-14] MEDS: LACTATED RINGER'S 1000 ML IV PRN (12:08)
--- NOTE | 2017-03-14 13:21 | HHI.CCPN ---
Subjective Remarks/Hospital Course 86-year-old Spanish speaking male. Date of admission 03/12/2017. Date of consultation 03/12/2017. 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 Today, patient had a cystoscopy with transurethral incision of the left distal ureter with fulguration feeding from transitional course Zosyn with a robot-assisted laparotomy and EBL was 2500 cc. Patient received 1 g TXA, 4 PRBCs, 625 cc FFP and 100 g albumin, 3500 cc crystalloid. 400 cc urine output. Patient is actually hypertensive postprocedure. Noted he is Spanish speaking and not interactive at the present time. Is on Dilaudid SPEECH/LANGUAGE THERAPIST. 03/13: Alert. Well perfused. Urine output good. Minor oozing JACE drain site. 03/14: Stable hemodynamics. Restart his home BP meds. Objective Vital Signs Date Time Temp Pulse Resp B/P Pulse Ox O2 Delivery O2 Flow Rate FiO2 03/14/17 12:57 18 03/14/17 12:00 96 Nasal Cannula 2.00 21 03/14/17 12:00 98.7 93 141/67 Intake and Output 03/13/17 03/13/17 03/13/17 07:59 15:59 23:59 Intake Total 850 ml 1100 ml 1986 ml Output Total 625 ml 840 ml 705 ml Balance 225 ml 260 ml 1281 ml Result Diagram: 03/14/17 0316 03/14/17 0316 Imaging Last Impressions Chest X-Ray 03/12/17 0000 Signed Impressions: Service Date/Time: Sunday, March 12, 2017 16:38 - CONCLUSION: Satisfactory line positioning. Vascular congestion and mild parenchymal edema similar to prior Kye Hoang MD Objective Remarks GENERAL: 86-year-old male, no acute distress SKIN: Warm and dry. No rash HEAD: Atraumatic. Normocephalic. EYES: No scleral icterus. No injection or drainage. ENT: No nasal bleeding or discharge. Mucous membranes pink and moist. NECK: Trachea midline. Airway widely patent. CARDIOVASCULAR: H Dc paced. S1, S2 no S4. Calcific murmur RESPIRATORY: You fine crackles patient bases bilaterally. No wheezes. Breath sounds equal bilaterally. GASTROINTESTINAL: Abdomen soft, non-tender, nondistended. JACE left lower quadrant serosanguineous drainage. MUSCULOSKELETAL: Extremities without significant peripheral edema.Well perfused. NEUROLOGICAL: Awake and alert. No obvious cranial nerve deficits. Motor grossly within normal limits. Five out of 5 muscle strength in the arms and legs. Clear speech. A/P Assessment and Plan Neuro/Psych: Postoperative pain management Currently written for Dilaudid SPEECH/LANGUAGE THERAPIST. Titrate for pain management Acetaminophen for fever CV: Coronary artery disease status post CABG 5 History of atrial fibrillation/sinus bradycardia status post [employer] pacemaker atrially paced ventricular sensed Hypertension Dyslipidemia Chronic diastolic heart failure EF 50-55% Currently on LR 125 cc an hour. As needed labetalol/hydralazine/Nitropaste for blood pressure control Resume home medications of Norvasc 10 daily and Coreg 12.5 mg by mouth twice a day Hold aspirin 81 mg daily with recent surgery Holding Cozaar 50 mill grams by mouth daily light of acute kidney injury Holding Lasix 40 by mouth daily light of acute kidney injury Holding simvastatin 20 no grams by mouth daily. Resume when clinically indicated Resp: Nasal cannula to maintain saturations greater than equal to 90% Incentive Spirometry while awake 8/7 chest x-ray postop revealed mild pulmonary edema GI: Gastroesophageal reflux disease Advance diet per urology currently nothing by mouth Patient is on Prilosec 20 mg by mouth daily at home for gastroesophageal reflux disease. Protonix initiated here Bowel protocol initiated : Postop day #2 Cystoscopy, transurethral incision of left distal ureter, fulguration of several small bladder lesions consistent with seeding of transitional cell carcinoma and a robot-assisted laparoscopic left nephro ureterectomy Dr. Mcelroy Patient is a JACE in the left lower quadrant. Management per urology Endo: Sliding-scale insulin if indicated to maintain euglycemia Renal: Acute kidney injury? Baseline creatinine is within normal limits. Currently currently 1.7. Recheck in AM. Heme: Normocytic anemia Thrombocytopenia Received 4 units PRBCs, 6 25 cc FFP, 1 g T XA in OR. Follow-up CBC in a.m. ID: Received Levaquin 250 mg IV daily 3 dosages per urology Received 500 mg Levaquin in OR FEN: Replacing electrolytes as clinically indicated. MSK: PT evaluate and treat Access - Right IJ Cordis with dual-lumen day #1 placed in OR - Left radial arterial line day 1 placed in OR Prophylaxis - GI - pantoprazole - DVT - SCD/heparin subcutaneous Overall impression: Stable hemodynamics and respiratory status.Restart home BP meds. Dillon Lew MD Mar 14, 2017 13:21
[2017-03-14] MEDS ORDERED: hydrALAZINE HCL 25 MG TAB PO PRN (14:00)
[2017-03-14] MEDS ORDERED: hydrALAZINE HCL 25 MG TAB PO SCH (14:00)
[2017-03-14] MEDS: oxyCODONE/ACETAMINOPHEN 5 MG/325 MG TAB PO PRN ×2 (15:01→20:08)
[2017-03-14] MEDS: CARVEDILOL 12.5 MG TAB PO SCH (20:09)
[2017-03-15] VITALS (9 sets, daily range): BP systolic 124–149; BP diastolic 61–68; PULSE 60–90; RESP 16–17; TEMP 97.5–99.5; O2SAT 92–98
[2017-03-15] MEDS: CHLORHEXIDINE GLUCONATE 2 % 1 PACK (2 CLOTHS) TOP SCH (04:00)
[2017-03-15] MEDS: oxyCODONE/ACETAMINOPHEN 5 MG/325 MG TAB PO PRN ×2 (05:06→17:50)
[2017-03-15] MEDS: HEPARIN SODIUM - SQ 10,000 UNITS/ML VIAL SQ SCH ×2 (05:06→15:30)
[2017-03-15 07:14] LABS: HEMATOCRIT 24.5 % (39.0-51.0); MEAN CELL VOLUME 86.8 FL (80.0-100.0); MEAN CORPUSCULAR HEMOGLOBIN 29.1 PG (27.0-34.0); MEAN CORPUSCULAR HGB CONC 33.5 % (32.0-36.0); PLATELET COUNT 90 TH/MM3 (150-450); RED BLOOD COUNT 2.82 MIL/MM3 (4.50-5.90); RED CELL DISTRIBUTION WIDTH 16.9 % (11.6-17.2); WHITE BLOOD COUNT 9.4 TH/MM3 (4.0-11.0)
[2017-03-15 07:15] LABS: REVIEW FLAG FINAL
[2017-03-15 07:33] LABS: BICARBONATE 27.4 MEQ/L (21.0-32.0)
[2017-03-15 07:34] LABS: POTASSIUM 3.6 MEQ/L (3.5-5.1)
[2017-03-15] MEDS: CARVEDILOL 12.5 MG TAB PO SCH ×2 (08:40→21:37)
[2017-03-15] MEDS: LEVOFLOXACIN/DEXTROSE 250 MG/50 ML IV SCH (08:40)
[2017-03-15] MEDS: SODIUM CHLORIDE 0.9% FLUSH 10 ML FLUSH IV FLUSH SCH ×2 (08:41→21:00)
[2017-03-15] MEDS: LOSARTAN 50 MG TAB PO SCH (08:41)
[2017-03-15] MEDS: DOCUSATE SODIUM 50 MG/SENNA 8.6 MG TAB PO SCH ×2 (08:42→21:36)
--- NOTE | 2017-03-15 14:14 | HHI.PR ---
Subjective Patient symptoms today Postoperative day #3 Getting ready to ambulate with physical therapy and oxygen administered via nasal cannula due to dropping saturation Reports pain well managed Reports not being very hungry but did have a small bowel movement today Objective Vital Signs Vital Signs Date Time Temp Pulse Resp B/P Pulse Ox O2 Delivery O2 Flow Rate FiO2 03/15/17 12:00 98.8 60 17 131/61 92 03/15/17 11:48 98 Nasal Cannula 2.00 03/15/17 08:00 98.1 76 17 140/68 95 03/15/17 04:00 98.8 72 16 124/63 93 03/15/17 00:00 99.5 90 16 143/65 93 03/14/17 22:00 61 03/14/17 21:08 18 03/14/17 20:00 90 03/14/17 20:00 98.1 90 17 166/80 97 03/14/17 19:00 98 Nasal Cannula 2.00 03/14/17 18:00 98 03/14/17 16:00 98.8 92 20 157/72 96 03/14/17 16:00 92 Result Diagram: 03/15/17 0350 03/15/17 0350 Other Results 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 Objective Remarks Abdomen soft, nondistended, nontender Wound sites clean Small amount serosanguineous drainage around JACE site Extremities well-perfused, nontender Medications and IVs Current Medications Medications (Trade) Dose Ordered Sig/Jenny Route Start Time Stop Time Status Last Admin (NS Flush) 2 ml UNSCH PRN IV FLUSH 03/12/17 16:30 03/13/17 19:23 (NS Flush) 2 ml BID IV FLUSH 03/12/17 21:00 03/15/17 08:41 (Heparin Inj) 5,000 units Q12H SQ 03/13/17 15:30 03/15/17 05:06 (Narcan Inj) 0.4 mg UNSCH PRN IV 03/12/17 16:30 (Nitroglycerin 2% Oint) 2 inch Q6HR PRN TOPICAL 03/12/17 18:45 (Tylenol) 650 mg Q6H PRN PO 03/12/17 18:45 (Zofran Inj) 4 mg Q6H PRN IV 03/12/17 18:45 Miscellaneous Information 1 Q361D XX 03/12/17 18:45 03/12/17 21:40 (Chlorhexidine 2% Cloth) 3 pack Taper DAILY@04 TOP 03/13/17 04:00 03/09/18 03:59 03/14/17 03:06 (Chlorhexidine 2% Cloth) 3 pack UNSCH PRN TOP 03/12/17 18:45 (Gabby-Colace) 1 tab BID PO 03/12/17 21:00 03/15/17 08:42 (Milk Of Magnesia Liq) 30 ml Q12H PRN PO 03/12/17 18:45 (Senokot) 17.2 mg Q12H PRN PO 03/12/17 18:45 (Dulcolax Supp) 10 mg DAILY PRN RECTAL 03/12/17 18:45 (Lactulose Liq) 30 ml DAILY PRN PO 03/12/17 18:45 (Percocet 5-325 Mg) 1 tab Q4H PRN PO 03/14/17 12:00 03/15/17 05:06 (Vasotec) 2.5 mg DAILY PRN PO 03/14/17 12:00 (Norvasc) 10 mg DAILY PO 03/14/17 14:00 03/15/17 08:40 (Coreg) 12.5 mg Q12HR PO 03/14/17 21:00 03/15/17 08:40 (Cozaar) 50 mg DAILY PO 03/15/17 09:00 03/15/17 08:41 (Apresoline) 25 mg Q8HR PRN PO 03/14/17 14:00 Assessment and Plan Assessment and Plan Urologic impression: Status post robot-assisted laparoscopic left nephro ureterectomy / making slow steady progress Plan: #1 physical therapy consult for ambulation exercises #2 discontinue JACE drain #3 continue with George catheter to gravity drainage #4 case management evaluation for inpatient rehabilitation Nir Mcelroy MD Mar 15, 2017 14:14
[2017-03-16] VITALS (7 sets, daily range): BP systolic 139–178; BP diastolic 63–81; PULSE 64–89; RESP 16–20; TEMP 96.8–99.3; O2SAT 92–97
[2017-03-16] MEDS: oxyCODONE/ACETAMINOPHEN 5 MG/325 MG TAB PO PRN ×5 (02:40→21:01)
[2017-03-16] MEDS: CHLORHEXIDINE GLUCONATE 2 % 1 PACK (2 CLOTHS) TOP SCH (04:00)
[2017-03-16] MEDS: HEPARIN SODIUM - SQ 10,000 UNITS/ML VIAL SQ SCH ×2 (05:08→15:30)
[2017-03-16] MEDS: CARVEDILOL 12.5 MG TAB PO SCH ×2 (09:16→21:01)
[2017-03-16] MEDS: LOSARTAN 50 MG TAB PO SCH (09:16)
[2017-03-16] MEDS: DOCUSATE SODIUM 50 MG/SENNA 8.6 MG TAB PO SCH ×2 (09:16→21:01)
[2017-03-16] MEDS: SODIUM CHLORIDE 0.9% FLUSH 10 ML FLUSH IV FLUSH SCH ×2 (09:17→21:01)
[2017-03-17] VITALS (8 sets, daily range): BP systolic 144–170; BP diastolic 66–76; PULSE 64–103; RESP 16–19; TEMP 96.7–98.4; O2SAT 92–96
[2017-03-17] MEDS: oxyCODONE/ACETAMINOPHEN 5 MG/325 MG TAB PO PRN ×4 (00:56→23:08)
[2017-03-17] MEDS: CHLORHEXIDINE GLUCONATE 2 % 1 PACK (2 CLOTHS) TOP SCH (04:00)
[2017-03-17] MEDS: HEPARIN SODIUM - SQ 10,000 UNITS/ML VIAL SQ SCH ×2 (04:58→16:22)
[2017-03-17] MEDS: LOSARTAN 50 MG TAB PO SCH (09:00)
[2017-03-17] MEDS: DOCUSATE SODIUM 50 MG/SENNA 8.6 MG TAB PO SCH ×2 (09:00→23:08)
[2017-03-17] MEDS: CARVEDILOL 12.5 MG TAB PO SCH ×2 (09:00→23:08)
[2017-03-17] MEDS: SODIUM CHLORIDE 0.9% FLUSH 10 ML FLUSH IV FLUSH SCH ×2 (16:22→23:09)
[2017-03-17] MEDS ORDERED: BISACODYL 10 MG SUPP RECTAL ONE (17:15)
[2017-03-17] MEDS ORDERED: METOCLOPRAMIDE HCL 10 MG/2 ML VIAL IV ONE (17:15)
[2017-03-18] VITALS (7 sets, daily range): BP systolic 112–163; BP diastolic 56–75; PULSE 68–96; RESP 16–20; TEMP 95.5–99.3; O2SAT 94–96
[2017-03-18] MEDS: HEPARIN SODIUM - SQ 10,000 UNITS/ML VIAL SQ SCH ×2 (03:22→15:30)
[2017-03-18] MEDS: oxyCODONE/ACETAMINOPHEN 5 MG/325 MG TAB PO PRN ×2 (03:30→09:23)
[2017-03-18] MEDS: CHLORHEXIDINE GLUCONATE 2 % 1 PACK (2 CLOTHS) TOP SCH (03:31)
[2017-03-18] MEDS: SODIUM CHLORIDE 0.9% FLUSH 10 ML FLUSH IV FLUSH SCH ×2 (09:00→20:46)
[2017-03-18] MEDS: DOCUSATE SODIUM 50 MG/SENNA 8.6 MG TAB PO SCH ×2 (09:23→20:46)
[2017-03-18] MEDS: CARVEDILOL 12.5 MG TAB PO SCH ×2 (09:23→20:46)
[2017-03-18] MEDS: LOSARTAN 50 MG TAB PO SCH (09:23)
[2017-03-18] MEDS ORDERED: COLA100C PO (14:11)
[2017-03-18] MEDS ORDERED: PERC5TAB12 PO (14:11)
--- NOTE | 2017-03-18 14:15 | HHI.DS ---
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 CBC/BMP: 03/15/17 0350 03/15/17 0350 PE at Discharge Abdomen soft, nondistended, nontender Wound sites healing well without evidence of infection Hospital Course Patient was admitted on March 12 and underwent the aforementioned procedures without complications. Due to patient's advanced age, he was admitted to the ICU postoperatively and subsequently transition to the surgical floor. Patient had slow steady progress with each postop day and by March 18, was ambulating well, tolerating oral intake well and felt well enough to go home. 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 Pt Condition on Discharge: Good Discharge Disposition: Discharge Home Discharge Instructions DIET: Follow Instructions for: As Tolerated, No Restrictions Activities you can perform: Shower Only-No Bath Activities to avoid: Strenuous Activity Nir Mcelroy MD Mar 18, 2017 14:15
[2017-03-19] MEDS: oxyCODONE/ACETAMINOPHEN 5 MG/325 MG TAB PO PRN ×3 (01:18→20:50)
[2017-03-19] MEDS: CHLORHEXIDINE GLUCONATE 2 % 1 PACK (2 CLOTHS) TOP SCH (03:12)
[2017-03-19] MEDS: HEPARIN SODIUM - SQ 10,000 UNITS/ML VIAL SQ SCH ×2 (03:13→13:55)
[2017-03-19 08:00] VITALS: BP 166/73; PULSE 81; RESP 20; TEMP 97.9; O2SAT 96
[2017-03-19] MEDS: CARVEDILOL 12.5 MG TAB PO SCH ×2 (08:53→20:50)
[2017-03-19] MEDS: LOSARTAN 50 MG TAB PO SCH (08:53)
[2017-03-19] MEDS: DOCUSATE SODIUM 50 MG/SENNA 8.6 MG TAB PO SCH ×2 (08:55→20:51)
[2017-03-19] MEDS: SODIUM CHLORIDE 0.9% FLUSH 10 ML FLUSH IV FLUSH SCH ×2 (08:55→20:51)
[2017-03-19 10:17] VITALS: O2SAT 98
--- NOTE | 2017-03-19 11:15 | HHI.PR ---
Objective Vital Signs Vital Signs Date Time Temp Pulse Resp B/P Pulse Ox O2 Delivery O2 Flow Rate FiO2 03/19/17 10:17 98 21 03/19/17 08:00 97.9 81 20 166/73 96 03/18/17 21:00 Room Air 03/18/17 20:00 98.6 78 18 112/56 94 03/18/17 18:13 96 21 03/18/17 16:00 95.5 90 17 136/70 96 03/18/17 12:00 96.9 68 16 144/60 95 Result Diagram: 03/15/17 0350 03/15/17 0350 Objective Remarks Abdomen soft, nondistended, nontender Wound sites clean Small amount serosanguineous drainage around JACE site Extremities well-perfused, nontender Medications and IVs Current Medications Medications (Trade) Dose Ordered Sig/Jenny Route Start Time Stop Time Status Last Admin (NS Flush) 2 ml UNSCH PRN IV FLUSH 03/12/17 16:30 03/13/17 19:23 (NS Flush) 2 ml BID IV FLUSH 03/12/17 21:00 03/19/17 08:55 (Heparin Inj) 5,000 units Q12H SQ 03/13/17 15:30 03/19/17 03:13 (Narcan Inj) 0.4 mg UNSCH PRN IV 03/12/17 16:30 (Nitroglycerin 2% Oint) 2 inch Q6HR PRN TOPICAL 03/12/17 18:45 (Tylenol) 650 mg Q6H PRN PO 03/12/17 18:45 (Zofran Inj) 4 mg Q6H PRN IV 03/12/17 18:45 Miscellaneous Information 1 Q361D XX 03/12/17 18:45 03/12/17 21:40 (Chlorhexidine 2% Cloth) Taper DAILY@04 TOP 03/13/17 04:00 03/09/18 03:59 03/14/17 03:06 (Chlorhexidine 2% Cloth) 3 pack UNSCH PRN TOP 03/12/17 18:45 (Gabby-Colace) 1 tab BID PO 03/12/17 21:00 03/18/17 20:46 (Milk Of Magnesia Liq) 30 ml Q12H PRN PO 03/12/17 18:45 (Senokot) 17.2 mg Q12H PRN PO 03/12/17 18:45 (Dulcolax Supp) 10 mg DAILY PRN RECTAL 03/12/17 18:45 (Lactulose Liq) 30 ml DAILY PRN PO 03/12/17 18:45 (Percocet 5-325 Mg) 1 tab Q4H PRN PO 03/14/17 12:00 03/19/17 08:53 (Vasotec) 2.5 mg DAILY PRN PO 03/14/17 12:00 03/17/17 04:57 (Norvasc) 10 mg DAILY PO 03/14/17 14:00 03/19/17 08:53 (Coreg) 12.5 mg Q12HR PO 03/14/17 21:00 03/19/17 08:53 (Cozaar) 50 mg DAILY PO 03/15/17 09:00 03/19/17 08:53 (Apresoline) 25 mg Q8HR PRN PO 03/14/17 14:00 Assessment and Plan Assessment and Plan Urologic impression: Status post robot-assisted laparoscopic left nephro ureterectomy / making slow steady progress Plan: #1 physical therapy consult for ambulation exercises #2 discontinue JACE drain #3 continue with George catheter to gravity drainage #4 case management evaluation for inpatient rehabilitation Nir Mcelroy MD Mar 19, 2017 11:15
--- NOTE | 2017-03-19 12:23 | HHI.PR ---
Subjective Patient symptoms today Postoperative day #7 Patient was discharged home yesterday however there was held until a walker could be provided. In the interim the patient has developed abdominal pain and feels that he cannot go home at this time. He is moving his bowels but reports only small amounts of stool are coming out at a time. Denies nausea or vomiting. Objective Vital Signs Vital Signs Date Time Temp Pulse Resp B/P Pulse Ox O2 Delivery O2 Flow Rate FiO2 03/19/17 10: 98 21 03/19/17 08:00 97.9 81 20 166/73 96 03/18/17 21:00 Room Air 03/18/17 20:00 98.6 78 18 112/56 94 03/18/17 18:13 96 21 03/18/17 16:00 95.5 90 17 136/70 96 Result Diagram: 03/15/17 0350 03/15/17 0350 Objective Remarks Abdomen soft, mildly distended, nontender Wound sites clean Extremities well-perfused, nontender Medications and IVs Current Medications Medications (Trade) Dose Ordered Sig/Jenny Route Start Time Stop Time Status Last Admin (NS Flush) 2 ml UNSCH PRN IV FLUSH 03/12/17 16:30 03/13/17 19:23 (NS Flush) 2 ml BID IV FLUSH 03/12/17 21:00 03/19/17 08:55 (Heparin Inj) 5,000 units Q12H SQ 03/13/17 15:30 03/19/17 03:13 (Narcan Inj) 0.4 mg UNSCH PRN IV 03/12/17 16:30 (Nitroglycerin 2% Oint) 2 inch Q6HR PRN TOPICAL 03/12/17 18:45 (Tylenol) 650 mg Q6H PRN PO 03/12/17 18:45 (Zofran Inj) 4 mg Q6H PRN IV 03/12/17 18:45 Miscellaneous Information 1 Q361D XX 03/12/17 18:45 03/12/17 21:40 (Chlorhexidine 2% Cloth) Taper DAILY@04 TOP 03/13/17 04:00 03/09/18 03:59 03/14/17 03:06 (Chlorhexidine 2% Cloth) 3 pack UNSCH PRN TOP 03/12/17 18:45 (Gabby-Colace) 1 tab BID PO 03/12/17 21:00 03/18/17 20:46 (Milk Of Magnesia Liq) 30 ml Q12H PRN PO 03/12/17 18:45 (Senokot) 17.2 mg Q12H PRN PO 03/12/17 18:45 (Dulcolax Supp) 10 mg DAILY PRN RECTAL 03/12/17 18:45 (Lactulose Liq) 30 ml DAILY PRN PO 03/12/17 18:45 (Percocet 5-325 Mg) 1 tab Q4H PRN PO 03/14/17 12:00 03/19/17 08:53 (Vasotec) 2.5 mg DAILY PRN PO 03/14/17 12:00 03/17/17 04:57 (Norvasc) 10 mg DAILY PO 03/14/17 14:00 03/19/17 08:53 (Coreg) 12.5 mg Q12HR PO 03/14/17 21:00 03/19/17 08:53 (Cozaar) 50 mg DAILY PO 03/15/17 09:00 03/19/17 08:53 (Apresoline) 25 mg Q8HR PRN PO 03/14/17 14:00 Assessment and Plan Assessment and Plan Urologic impression: #1 status post robot-assisted laparoscopic left nephro ureterectomy #2 new onset abdominal pain of indeterminate etiology Plan: #1 CT scan of the abdomen and pelvis #2 continue with George catheter to gravity drainage #3 reconsult case management to arrange inpatient rehabilitation Nir Mcelroy MD Mar 19, 2017 12:23
[2017-03-19] MEDS ORDERED: DIATRIZOATE MEGLUM/DIATRIZOATE SOD 9 ML CUP PO ONE (13:15)
[2017-03-19 16:00] VITALS: BP 156/72; PULSE 68; RESP 20; TEMP 95.4; O2SAT 96
[2017-03-19] MEDS ORDERED: IOHEXOL 350 MG/ML 10 ML VIAL (for RAD DIAG) IV ONE ×2 (17:49→18:03)
--- NOTE | 2017-03-19 17:55 | RADRPT ---
EXAM DATE/TIME: 03/19/2017 17:06 [facility] COMPARISON: No previous studies available for comparison. INDICATIONS : Abdomen pain,post left nephrourectomy one week ago. IV CONTRAST: 70 cc Omnipaque 350 (iohexol) IV ORAL CONTRAST: Prescribed oral contrast ingested. RADIATION DOSE: 20.81 CTDIvol (mGy) MEDICAL HISTORY : Cardiovascular disease. Congestive heart failure. Hypertension.prostate cancer SURGICAL HISTORY : Prostatectomy. Pacemaker. ENCOUNTER: Initial ACUITY: 1 day PAIN SCALE: 5/10 LOCATION: Abdomen TECHNIQUE: Volumetric scanning of the abdomen and pelvis was performed. Using automated exposure control and ad justment of the mA and/or kV according to patient size, radiation dose was kept as low as reasonably achievable to obtain optimal diagnostic quality images. DICOM format image data is available electro nically for review and comparison. FINDINGS: Imaging through the lung bases demonstrates an area of consolidation in the right lower lobe. The jonathan g bases are otherwise clear. The heart is enlarged. There is atherosclerotic plaquing in the coronary arteries. The appearance of the liver, spleen, pancreas, adrenal glands and right kidney are normal in appearan ce. Note is made of sludge within the dependent portion of the gallbladder. The patient is post left nephrectomy. There is hemorrhage evident in the left renal fossa extending a long the left iliopsoas muscle. There are no findings to indicate active bleeding. The largest area o f hematoma measures approximately 6.1 x 5.6 cm. The abdominal aorta is at the upper limits of normal in size. No intraperitoneal fluid is evident. No iliac or inguinal adenopathy is seen. Note is made of a small left inguinal hernia. There is a small amount of gas in the anterior abdominal wall felt to be secondary to the patient's r ecent surgery. There is a George catheter within the bladder. CONCLUSION: 1. The patient is post left nephrectomy. There is hematoma evident in the left renal fossa. Maximum d imension is 5.6 x 6.1 cm. There is no evidence of active bleeding. No findings to indicate abscess ar e seen. Sigifredo Olivares MD on March 19, 2017 at 17:49 Board Certified Radiologist. This report was verified electronically.
[2017-03-19 18:03] VITALS: O2SAT 96
[2017-03-19 20:14] VITALS: BP 135/66; PULSE 80; RESP 18; TEMP 96; O2SAT 95
[2017-03-19 23:54] VITALS: BP 146/66; PULSE 82; RESP 18; TEMP 99; O2SAT 98
[2017-03-20] MEDS: CHLORHEXIDINE GLUCONATE 2 % 1 PACK (2 CLOTHS) TOP SCH (03:44)
[2017-03-20 08:00] VITALS: BP 123/66; PULSE 93; RESP 20; TEMP 98.4; O2SAT 98
[2017-03-20] MEDS: SODIUM CHLORIDE 0.9% FLUSH 10 ML FLUSH IV FLUSH SCH (08:53)
[2017-03-20] MEDS: DOCUSATE SODIUM 50 MG/SENNA 8.6 MG TAB PO SCH (08:53)
[2017-03-20] MEDS: CARVEDILOL 12.5 MG TAB PO SCH (08:53)
[2017-03-20] MEDS: LOSARTAN 50 MG TAB PO SCH (08:53)
[2017-03-20] MEDS: oxyCODONE/ACETAMINOPHEN 5 MG/325 MG TAB PO PRN (09:18)
[2017-03-20 12:00] VITALS: BP 138/64; PULSE 63; RESP 18; TEMP 98.2; O2SAT 93
[2017-03-20 14:24] VITALS: O2SAT 98
--- NOTE | 2017-03-20 14:33 | HHI.DS ---
Discharge Summary Admission Date Mar 12, 2017 at 06:45 Admitting Diagnosis (1) Urothelial carcinoma of kidney Diagnosis: Principal Procedures Robot-assisted laparoscopic left nephro ureterectomy, cystoscopy and fulguration of small bladder lesions Brief History 86 year-old gentleman with urothelial cancer involving the left kidney and distal ureter was admitted to undergo a robot-assisted laparoscopic left nephro ureterectomy. PE at Discharge Abdomen soft, nondistended, nontender Wound sites healing well without evidence of infection Hospital Course Patient admitted on March 12 and underwent the aforementioned procedures without complications. Postoperatively the patient had slow steady progress due to his advanced age. The patient was tentatively scheduled for discharge home on March 18 however by the time arrange for made for him to receive his walker he was not ready to go home. On March 19 the patient was complaining of some vague abdominal pain and a CT scan study was performed that failed to demonstrate any significant pathology. There was no evidence of abscess or intra-abdominal bleeding. By March 20 the patient felt better and was requesting to go home. He was seen by occupational therapy and was offered the option of inpatient rehabilitation however the patient declined and just wanted to go home. Pt Condition on Discharge: Good Discharge Disposition: Discharge Home Discharge Instructions DIET: Follow Instructions for: As Tolerated, No Restrictions Activities you can perform: Shower Only-No Bath Activities to avoid: Strenuous Activity Nir Mcelroy MD Mar 20, 2017 14:33
== END 2017-03-20 15:55 | disposition home or self-care (01) | DRG 657 ==
LOC: HSDI 03-12 06:45 → N03A 03-12 18:32 → N07A 03-14 22:29
PROVIDERS: ADMIT Urology; ATTEND Urology
PROC: 0T5B8ZZ Destruction of Bladder, Via Natural or Artificial Opening Endoscopic (ICD-10-PCS; 2017-03-12)
PROC: 8E0W4CZ Robotic Assisted Procedure of Trunk Region, Percutaneous Endoscopic Approach (ICD-10-PCS; 2017-03-12)
PROC: 30233K1 Transfusion of Nonautologous Frozen Plasma into Peripheral Vein, Percutaneous Approach (ICD-10-PCS; 2017-03-12)
PROC: 30233N1 Transfusion of Nonautologous Red Blood Cells into Peripheral Vein, Percutaneous Approach (ICD-10-PCS; 2017-03-12)
PROC: 30233R1 Transfusion of Nonautologous Platelets into Peripheral Vein, Percutaneous Approach (ICD-10-PCS; 2017-03-12)
PROC: 0TT14ZZ Resection of Left Kidney, Percutaneous Endoscopic Approach (ICD-10-PCS; principal; 2017-03-12 08:30)
PROC: 0TB74ZZ Excision of Left Ureter, Percutaneous Endoscopic Approach (ICD-10-PCS; 2017-03-12 08:30)
DX: C65.2 Malignant neoplasm of left renal pelvis (principal); C79.19 Secondary malignant neoplasm of other urinary organs; N17.9 Acute kidney failure, unspecified; C79.11 Secondary malignant neoplasm of bladder; I11.0 Hypertensive heart disease with heart failure; D69.6 Thrombocytopenia, unspecified; I50.32 Chronic diastolic (congestive) heart failure; E66.9 Obesity, unspecified; Z95.1 Presence of aortocoronary bypass graft; I25.10 Atherosclerotic heart disease of native coronary artery without angina pectoris; K21.9 Gastro-esophageal reflux disease without esophagitis; E78.5 Hyperlipidemia, unspecified; D64.9 Anemia, unspecified; N40.0 Benign prostatic hyperplasia without lower urinary tract symptoms; Z68.31 Body mass index [BMI] 31.0-31.9, adult; Z95.0 Presence of cardiac pacemaker; Z79.82 Long term (current) use of aspirin
CPT/HCPCS: 36415; 36430; 71010; 74177; 80048; 83605; 83735; 84100; 85014; 85018; 85025; 85027; 85384; 85610; 85730; 86850; 86900; 86901; 86920; 86922; 86927; 88307; 88309; 94150; J0131; J0360; J1100; J1130; J1170; J1644; J1956; J2250; J2370; J2405; J2765; J3010; J7050; J7120; P9016; P9017; P9035; P9047; Q9963; Q9967

== ENCOUNTER → 2017-03-07 | Outpatient (CLI) | payer MEDICARE ==
[~2017-03-07] MED LIST changes: +COLA100C PO; +COZA50TA PO; +FURO1TAB60 PO; +LEVO500T8 PO; +MAGN1TAB14 PO; +MAGN400T2 PO; +PERC5TAB12 PO; +SIMV20TA PO
[2017-03-07 15:02] LABS: AUTOMATED NEUTROPHIL # 3.6 TH/MM3 (1.8-7.7); BASOPHIL % 0.4 % (0.0-2.0); EOSINOPHIL # 0.2 TH/MM3 (0-0.4); EOSINOPHIL % 3.1 % (0.0-4.0); HEMATOCRIT 29.5 % (39.0-51.0); LYMPH % 34.1 % (9.0-44.0); LYMPHOCYTE # 2.4 TH/MM3 (1.0-4.8); MEAN CORPUSCULAR HEMOGLOBIN 30.5 PG (27.0-34.0); MEAN CORPUSCULAR HGB CONC 33.2 % (32.0-36.0); MONO % 12.6 % (0.0-8.0); NEUT % 49.8 % (16.0-70.0); PLATELET COUNT 171 TH/MM3 (150-450); RED CELL DISTRIBUTION WIDTH 14.5 % (11.6-17.2); WHITE BLOOD COUNT 7.2 TH/MM3 (4.0-11.0)
[2017-03-07 15:14] LABS: ALT (GPT) 15 U/L (12-78); ANION GAP 8 MEQ/L (5-15); AST (GOT) 14 U/L (15-37); BICARBONATE 26.4 MEQ/L (21.0-32.0); BLOOD UREA NITROGEN 25 MG/DL (7-18); CHLORIDE 104 MEQ/L (98-107); GLOMERULAR FILTRATION RATE 37 ML/MIN (>89); GLUCOSE,FASTING 96 MG/DL (74-99); POTASSIUM 3.8 MEQ/L (3.5-5.1); SODIUM (NA) 138 MEQ/L (136-145)
[2017-03-07 15:17] LABS: ALKALINE PHOSPHATASE 44 U/L (45-117); TOTAL BILIRUBIN ADULT 0.6 MG/DL (0.2-1.0)
[2017-03-07 15:25] LABS: HEMO FLAGS AUTO DIFF
[2017-03-07 15:33] LABS: APTT (PATIENT) 26.8 SEC (24.3-30.1); INTERNATIONAL NORMALIZED RATIO 1.2 RATIO; PROTHROMBIN TIME - PATIENT 13.3 SEC (9.8-11.6)
[2017-03-07 16:19] LABS: ROULEAUX PRESENT (NORMAL); SCAN/DIFF AUTO DIFF CONFIRMED
--- NOTE | 2017-03-08 12:07 | EKG ---
Date Performed: 03/07/2017 Time Performed: 13:59:06 PTAGE: 86 years EKG: ELECTRONIC ATRIAL PACEMAKER ELECTRONIC VENTRICULAR PACEMAKER ABNORMAL RHYTHM ECG PREVIOUS TRACING : 05/04/2016 05.31 Compared to the prior study, paced rhythm is now present. DOCTOR: Landry Vincent Interpretating Date/Time 03/08/2017 12:07:01
== END ==
LOC: CPRE 13:31
PROVIDERS: ATTEND Urology
DX: Z01.810 Encounter for preprocedural cardiovascular examination (principal); Z01.812 Encounter for preprocedural laboratory examination; N28.89 Other specified disorders of kidney and ureter; R31.0 Gross hematuria; R94.31 Abnormal electrocardiogram [ECG] [EKG]
CPT/HCPCS: 36415; 80053; 85025; 85610; 85730; 93005

== ENCOUNTER 2017-08-20 06:09 | Observation (INO) | payer MEDICARE ==
[~2017-08-20] VITALS: Ht 167.6 cm; Wt 77.0 kg
[~2017-08-20 06:09] MED LIST changes: -COLA100C PO; -LEVO500T8 PO; -LOSA50TA PO; -MAGN1TAB14 PO; -OMEP20TA PO; +OMEP20TA93 PO; -PERC5TAB12 PO
[2017-08-20] MEDS ORDERED: SODIUM CHLORID 0.9% 500 ML IV PRN (06:45)
[2017-08-20] MEDS ORDERED: LACTATED RINGER'S 1000 ML IV PRN (06:45)
[2017-08-20] MEDS ORDERED: CHLORHEXIDINE GLUCONATE 2 % 1 PACK (2 CLOTHS) TOPICAL PRN (06:45)
[2017-08-20] MEDS ORDERED: LEVOFLOXACIN 500 MG PREMIX INJ 100 ML IV SCH (06:45)
[2017-08-20] MEDS ORDERED: POVIDONE IODINE 5% (ANTISEPSIS KIT) 4 APPLICATIONS EACH NARE PRN (06:45)
[2017-08-20] MEDS ORDERED: METOPROLOL TARTRATE 25 MG TAB PO PRN ×2 (06:45→17:45)
[2017-08-20 07:02] LABS: AUTOMATED NEUTROPHIL # 3.4 TH/MM3 (1.8-7.7); BASOPHIL # 0.1 TH/MM3 (0-0.2); BASOPHIL % 0.9 % (0.0-2.0); EOSINOPHIL # 0.3 TH/MM3 (0-0.4); EOSINOPHIL % 3.8 % (0.0-4.0); HEMATOCRIT 26.8 % (39.0-51.0); HEMOGLOBIN 8.9 GM/DL (13.0-17.0); LYMPH % 32.5 % (9.0-44.0); LYMPHOCYTE # 2.2 TH/MM3 (1.0-4.8); MEAN CELL VOLUME 90.3 FL (80.0-100.0); MEAN CORPUSCULAR HEMOGLOBIN 30.1 PG (27.0-34.0); MEAN CORPUSCULAR HGB CONC 33.4 % (32.0-36.0); MEAN PLATELET VOLUME 8.8 FL (7.0-11.0); MONO % 12.9 % (0.0-8.0); MONOCYTE # 0.9 TH/MM3 (0-0.9); NEUT % 49.9 % (16.0-70.0); PLATELET COUNT 172 TH/MM3 (150-450); RED BLOOD COUNT 2.97 MIL/MM3 (4.50-5.90); RED CELL DISTRIBUTION WIDTH 15.1 % (11.6-17.2); WHITE BLOOD COUNT 6.8 TH/MM3 (4.0-11.0)
[2017-08-20] MEDS ORDERED: DO NOT ADM ANY ANTICOAGULANT DRUGS PRN (11:43)
--- NOTE | 2017-08-20 11:43 | PD.OP ---
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 Patient presents today for transurethral resection of these multiple bladder tumors. Operative procedure in detail: Patient was brought to the operating suite and placed supine on the OR table. He was a pleasant general anesthesia. He was then placed in the dorsolithotomy position and prepped and draped in normal sterile fashion. After an appropriate timeout was undertaken I proceeded with cystoscopic evaluation utilizing the rigid cystoscope with the 30 lens and 20 [place] sheath. Once again patient was noted to have multiple bladder tumors involving all wolfe of the bladder greater than 5 cm in size. The cystoscope was exchanged for the resectoscope with the 24 [place] cutting loop and transurethral resection of these tumors was next performed. The right ureteral orifice was identified and care was taken to avoid any inadvertent resection in this area. Fortunately there was no bladder tumor formation in this area. The tumors were extensive and resection time was greater than 2 hours. At conclusion of the procedure there was minimal bleeding and a 20 [place] 30 cc George catheter was placed and connected to gravity drainage. The patient tolerated the procedures without complications and was transferred to the PACU in satisfactory condition. Nir Mcelroy MD Aug 20, 2017 11:43
[2017-08-20] MEDS ORDERED: ONDANSETRON HCL 4 MG/2 ML VIAL IV PUSH PRN (11:45)
[2017-08-20] MEDS ORDERED: BELLADONNA ALKALOIDS/OPIUM 60 MG SUPP RECTAL ONE (11:48)
[2017-08-20] MEDS: BELLADONNA ALKALOIDS/OPIUM 60 MG SUPP RECTAL PRN (11:49)
[2017-08-20] MEDS ORDERED: PERC5TAB12 PO (11:51)
[2017-08-20] MEDS ORDERED: LEVA500T33 PO (11:51)
[2017-08-20] MEDS ORDERED: ROCURONIUM INJ 50 MG/5 ML SYRINGE IV PUSH ONE (12:00)
[2017-08-20] MEDS ORDERED: NEOSTIGMINE 5 MG/5 ML SYRINGE IV PUSH ONE (12:00)
[2017-08-20] MEDS ORDERED: LIDOCAINE HCL 1% PF 5 ML SYRINGE OTHER ONE (12:00)
[2017-08-20] MEDS ORDERED: ONDANSETRON HCL 4 MG/2 ML VIAL IV PUSH ONE (12:00)
[2017-08-20] MEDS ORDERED: DEXAMETHASONE SOD PHOS 4 MG/ML VIAL IV ONE (12:00)
[2017-08-20] MEDS ORDERED: PROPOFOL 200 MG/20 ML AMP IV ONE (12:00)
[2017-08-20] MEDS ORDERED: GLYCOPYRROLATE 1 MG/5 ML SYRINGE IV PUSH ONE (12:00)
[2017-08-20] MEDS ORDERED: ACETAMINOPHEN 1000 MG/100 ML 100 ML IV ONE (12:33)
[2017-08-20 16:00] VITALS: BP 184/84; PULSE 65; RESP 19; TEMP 96.9; O2SAT 96
[2017-08-20 19:40] VITALS: O2SAT 96
[2017-08-20 20:00] VITALS: BP 144/65; PULSE 60; RESP 18; TEMP 98; O2SAT 95
[2017-08-20] MEDS: LOSARTAN 50 MG TAB PO SCH (20:21)
[2017-08-20] MEDS: CARVEDILOL 12.5 MG TAB PO SCH (23:37)
[2017-08-21] VITALS (11 sets, daily range): BP systolic 101–142; BP diastolic 51–83; PULSE 58–66; RESP 15–20; TEMP 96.6–98.7; O2SAT 93–96
[2017-08-21] MEDS ORDERED: NON-FORMULARY DRUG (Omeprazole 20 MG) PO SCH (09:00)
[2017-08-21] MEDS: LOSARTAN 50 MG TAB PO SCH (10:06)
[2017-08-21] MEDS: CARVEDILOL 12.5 MG TAB PO SCH ×2 (10:07→19:45)
[2017-08-21] MEDS: PANTOPRAZOLE SOD 20 MG DELAYED RELEASE TAB PO SCH (10:07)
[2017-08-21] MEDS: MAGNESIUM OXIDE 400 MG TAB PO SCH (10:07)
--- NOTE | 2017-08-21 13:45 | HHI.PR ---
Subjective Patient symptoms today Postoperative day #1 Status post transurethral resection multiple bladder tumors Was having hematuria during the night with clots necessitating irrigation Complained of feeling little dizzy earlier today Objective Vital Signs Vital Signs Date Time Temp Pulse Resp B/P (MAP) Pulse Ox O2 Delivery O2 Flow Rate FiO2 08/21/17 11:08 94 08/21/17 08:00 98.0 58 15 101/53 (69) 94 08/21/17 04:00 98.0 60 20 122/58 (79) 94 08/21/17 00:00 97.5 66 20 142/54 (83) 96 08/20/17 20:00 98.0 60 18 144/65 (91) 95 08/20/17 19:40 96 21 08/20/17 16:00 96.9 65 19 184/84 (117) 96 08/20/17 15:00 98.2 77 21 170/80 (110) 98 Room Air 08/20/17 14:00 78 20 164/81 (108) 96 Room Air Intake & Output 08/21/17 08/21/17 07:00 19:00 Intake Total 120 ml Output Total 450 ml 60 ml Balance -330 ml -60 ml Intake Oral 120 ml Output Urine Total 450 ml 60 ml Result Diagram: 08/20/17 0640 Objective Remarks George catheter draining medium red urine with some clots in the tubing Bladder mildly distended I proceeded with irrigation of the George catheter with evacuation of several small clots Medications and IVs Current Medications Medications (Trade) Dose Ordered Sig/Jenny Route Start Time Stop Time Status Last Admin Lactated Ringer's 1,000 ml @ 30 mls/hr Q24H PRN IV 08/20/17 06:45 08/23/17 06:44 08/20/17 07:30 Sodium Chloride 500 ml @ 30 mls/hr [id number] PRN IV 08/20/17 06:45 08/23/17 06:44 (Lopressor) 25 mg WOOL SORTER PRN PO 08/20/17 06:45 08/23/17 06:44 (Betadine 5% Antisepsis Kit) 1 applic WOOL SORTER PRN EACH NARE 08/20/17 06:45 08/23/17 06:44 08/20/17 07:39 (Chlorhexidine 2% Cloth) 3 pack WOOL SORTER PRN TOPICAL 08/20/17 06:45 08/23/17 06:44 08/20/17 07:00 (Zofran Inj) 4 mg Q6HR PRN IV PUSH 08/20/17 11:45 (Percocet 5-325 Mg) 1 tab Q4H PRN PO 08/20/17 11:45 (B & O Supp) 60 mg Q6HR PRN RECTAL 08/20/17 11:45 08/20/17 11:49 (Lopressor) 25 mg Q6H PRN PO 08/20/17 17:45 08/20/17 17:51 (Norvasc) 10 mg DAILY PO 08/20/17 18:15 08/21/17 10:07 (Coreg) 12.5 mg BID PO 08/20/17 21:00 08/21/17 10:07 (Cozaar) 50 mg DAILY PO 08/20/17 18:15 08/21/17 10:06 (Mag-Ox) 400 mg DAILY PO 08/21/17 09:00 08/21/17 10:07 (Protonix) 20 mg DAILY PO 08/21/17 09:00 08/21/17 10:07 Assessment and Plan Assessment and Plan Urologic impression: #1 status post transient resection of multiple bladder tumors #2 postoperative hematuria Plan: #1 continue with George catheter and irrigate when necessary #2 will check labs #3 will order a PET scan to assess for metastatic disease Nir Mcelroy MD Aug 21, 2017 13:45
[2017-08-21 13:58] LABS: AUTOMATED NEUTROPHIL # 7.5 TH/MM3 (1.8-7.7); BASOPHIL % 0.4 % (0.0-2.0); EOSINOPHIL # 0.1 TH/MM3 (0-0.4); EOSINOPHIL % 0.8 % (0.0-4.0); LYMPH % 19.6 % (9.0-44.0); LYMPHOCYTE # 2.2 TH/MM3 (1.0-4.8); MEAN CORPUSCULAR HEMOGLOBIN 29.7 PG (27.0-34.0); MONO % 13.3 % (0.0-8.0); MONOCYTE # 1.5 TH/MM3 (0-0.9); NEUT % 65.9 % (16.0-70.0); PLATELET COUNT 158 TH/MM3 (150-450); RED BLOOD COUNT 2.26 MIL/MM3 (4.50-5.90); RED CELL DISTRIBUTION WIDTH 15.5 % (11.6-17.2); WHITE BLOOD COUNT 11.4 TH/MM3 (4.0-11.0)
[2017-08-21 14:05] LABS: HEMATOCRIT 20.4 % (39.0-51.0); HEMOGLOBIN 6.7 GM/DL (13.0-17.0)
[2017-08-21 14:22] LABS: BICARBONATE 25.7 MEQ/L (21.0-32.0); CALCIUM 7.9 MG/DL (8.5-10.1); CREATININE 3.19 MG/DL (0.60-1.30)
[2017-08-21] MEDS: oxyCODONE/ACETAMINOPHEN 5 MG/325 MG TAB PO PRN ×2 (14:22→18:46)
[2017-08-21] MEDS: BELLADONNA ALKALOIDS/OPIUM 60 MG SUPP RECTAL PRN (15:29)
[2017-08-21] MEDS: TEMAZEPAM 15 MG CAP PO PRN (22:21)
[2017-08-22] VITALS (11 sets, daily range): BP systolic 116–142; BP diastolic 56–71; PULSE 60–72; RESP 16–20; TEMP 97–98.6; O2SAT 93–96
[2017-08-22] MEDS: 1/2 NS + KCL 20 MEQ INJ 1,000 ML IV SCH ×2 (01:08→12:39)
[2017-08-22 08:40] LABS: HEMATOCRIT 22.2 % (39.0-51.0); HEMOGLOBIN 7.7 GM/DL (13.0-17.0); MEAN CELL VOLUME 88.9 FL (80.0-100.0); MEAN CORPUSCULAR HEMOGLOBIN 30.8 PG (27.0-34.0); MEAN CORPUSCULAR HGB CONC 34.6 % (32.0-36.0); MEAN PLATELET VOLUME 9.2 FL (7.0-11.0); PLATELET COUNT 113 TH/MM3 (150-450); RED BLOOD COUNT 2.49 MIL/MM3 (4.50-5.90); RED CELL DISTRIBUTION WIDTH 15.4 % (11.6-17.2); WHITE BLOOD COUNT 7.7 TH/MM3 (4.0-11.0)
[2017-08-22] MEDS: PANTOPRAZOLE SOD 20 MG DELAYED RELEASE TAB PO SCH (09:47)
[2017-08-22] MEDS: CARVEDILOL 12.5 MG TAB PO SCH ×2 (09:47→20:11)
[2017-08-22] MEDS: MAGNESIUM OXIDE 400 MG TAB PO SCH (09:48)
[2017-08-22] MEDS: LOSARTAN 50 MG TAB PO SCH (09:48)
--- NOTE | 2017-08-22 13:10 | HHI.PR ---
Subjective Patient symptoms today Postoperative day #2 Reports that George catheter has been draining much better Pain well managed Objective Vital Signs Vital Signs Date Time Temp Pulse Resp B/P (MAP) Pulse Ox O2 Delivery O2 Flow Rate FiO2 08/22/17 12:00 98.0 70 18 116/56 (76) 95 08/22/17 08:00 98.0 60 20 140/65 (90) 94 08/22/17 04:00 97.2 72 16 130/60 (83) 96 08/22/17 00:38 97.7 60 121/71 (88) 93 08/21/17 22:20 97.4 61 130/62 (84) 94 08/21/17 22:00 98.5 62 133/61 (85) 95 08/21/17 20:00 98.7 62 18 114/57 (76) 96 08/21/17 19:21 97.6 60 16 142/83 95 08/21/17 18:16 96.9 60 16 103/53 96 08/21/17 16:00 96.9 60 16 103/53 (70) 96 Intake & Output 08/22/17 08/22/17 07:00 19:00 Intake Total 1480 ml Output Total 700 ml Balance 780 ml Intake Oral 680 ml Packed Cells 800 ml Output Urine Total 700 ml Result Diagram: 08/22/17 0631 08/21/17 1311 Objective Remarks George catheter draining light to medium red urine without clots in the tubing Bladder not distended Extremities well-perfused, nontender Medications and IVs Current Medications Medications (Trade) Dose Ordered Sig/Jenny Route Start Time Stop Time Status Last Admin Lactated Ringer's 1,000 ml @ 30 mls/hr Q24H PRN IV 08/20/17 06:45 08/23/17 06:44 08/20/17 07:30 Sodium Chloride 500 ml @ 30 mls/hr [id number] PRN IV 08/20/17 06:45 08/23/17 06:44 (Lopressor) 25 mg PROJECT ACCOUNT MANAGER PRN PO 08/20/17 06:45 08/23/17 06:44 (Betadine 5% Antisepsis Kit) 1 applic PROJECT ACCOUNT MANAGER PRN EACH NARE 08/20/17 06:45 08/23/17 06:44 08/20/17 07:39 (Chlorhexidine 2% Cloth) 3 pack PROJECT ACCOUNT MANAGER PRN TOPICAL 08/20/17 06:45 08/23/17 06:44 08/20/17 07:00 (Zofran Inj) 4 mg Q6HR PRN IV PUSH 08/20/17 11:45 (Percocet 5-325 Mg) 1 tab Q4H PRN PO 08/20/17 11:45 08/21/17 18:46 (B & O Supp) 60 mg Q6HR PRN RECTAL 08/20/17 11:45 08/21/17 15:29 (Lopressor) 25 mg Q6H PRN PO 08/20/17 17:45 08/20/17 17:51 (Norvasc) 10 mg DAILY PO 08/20/17 18:15 08/22/17 09:47 (Coreg) 12.5 mg BID PO 08/20/17 21:00 08/22/17 09:47 (Cozaar) 50 mg DAILY PO 08/20/17 18:15 08/22/17 09:48 (Mag-Ox) 400 mg DAILY PO 08/21/17 09:00 08/22/17 09:48 (Protonix) 20 mg DAILY PO 08/21/17 09:00 08/22/17 09:47 (Restoril) 15 mg HS PRN PO 08/21/17 21:00 08/21/17 22:21 Potassium Chloride/Sodium Chloride 1,000 ml @ 84 mls/hr [id number] IV 08/21/17 16:00 08/22/17 12:39 Assessment and Plan Assessment and Plan Urologic impression: #1 status post transient resection of multiple bladder tumors #2 anemia secondary to preoperative and postoperative hematuria Plan: #1 continue with George catheter and irrigate when necessary #2 Will transfuse an additional 2 units packed red blood cells today #3 will order a PET scan to assess for metastatic disease as an outpatient after hospital discharge #4 check pathology #5 encourage out of bed #6 repeat labs in Nir Mcghee MD Aug 22, 2017 13:10
[2017-08-22] MEDS: oxyCODONE/ACETAMINOPHEN 5 MG/325 MG TAB PO PRN (20:14)
[2017-08-22] MEDS: TEMAZEPAM 15 MG CAP PO PRN (22:24)
[2017-08-23] MEDS: 1/2 NS + KCL 20 MEQ INJ 1,000 ML IV SCH ×2 (03:45→15:40)
[2017-08-23 05:29] LABS: HEMATOCRIT 27.5 % (39.0-51.0); HEMOGLOBIN 9.4 GM/DL (13.0-17.0); MEAN CORPUSCULAR HEMOGLOBIN 29.5 PG (27.0-34.0); MEAN CORPUSCULAR HGB CONC 34.3 % (32.0-36.0); MEAN PLATELET VOLUME 8.8 FL (7.0-11.0); PLATELET COUNT 96 TH/MM3 (150-450); RED CELL DISTRIBUTION WIDTH 16.6 % (11.6-17.2); WHITE BLOOD COUNT 7.8 TH/MM3 (4.0-11.0)
[2017-08-23 08:00] VITALS: BP 140/65; PULSE 63; RESP 18; TEMP 96.8; O2SAT 95
[2017-08-23] MEDS: PANTOPRAZOLE SOD 20 MG DELAYED RELEASE TAB PO SCH (08:21)
[2017-08-23] MEDS: LOSARTAN 50 MG TAB PO SCH (08:21)
[2017-08-23] MEDS: CARVEDILOL 12.5 MG TAB PO SCH (08:21)
[2017-08-23] MEDS: MAGNESIUM OXIDE 400 MG TAB PO SCH (08:21)
[2017-08-23] MEDS ORDERED: REST15CA PO (11:33)
--- NOTE | 2017-08-23 11:38 | HHI.DS ---
Discharge Summary Admission Date Aug 20, 2017 at 12:06 Discharge Date: Aug 23, 2017 Admitting Diagnosis (1) Bladder mass Diagnosis: Principal ICD Codes: N32.89 - Other specified disorders of bladder Procedures On August 20, patient with cystoscopy and transurethral resection of multiple bladder tumors. Brief History 86 year-old gentleman with history of transitional cell carcinoma who was recently discovered to have multiple bladder tumors on cystoscopic evaluation. Patient was brought into the hospital on August 20 and underwent cystoscopy and transurethral resection of the multiple bladder tumors. CBC/BMP: 08/23/17 0433 08/21/17 1311 Significant Findings Laboratory Tests Test 08/21/17 13:11 08/22/17 06:31 08/23/17 04:33 White Blood Count 11.4 TH/MM3 (4.0-11.0) Red Blood Count 2.26 MIL/MM3 (4.50-5.90) 2.49 MIL/MM3 (4.50-5.90) 3.20 MIL/MM3 (4.50-5.90) Hemoglobin 6.7 GM/DL (13.0-17.0) 7.7 GM/DL (13.0-17.0) 9.4 GM/DL (13.0-17.0) Hematocrit 20.4 % (39.0-51.0) 22.2 % (39.0-51.0) 27.5 % (39.0-51.0) Monocytes (%) (Auto) 13.3 % (0.0-8.0) Monocytes # (Auto) 1.5 TH/MM3 (0-0.9) Blood Urea Nitrogen 52 MG/DL (7-18) Creatinine 3.19 MG/DL (0.60-1.30) Random Glucose 137 MG/DL (74-106) Calcium Level 7.9 MG/DL (8.5-10.1) Sodium Level 135 MEQ/L (136-145) Estimat Glomerular Filtration Rate 19 ML/MIN (>89) Platelet Count 113 TH/MM3 (150-450) 96 TH/MM3 (150-450) Hospital Course Patient underwent surgery as outlined above. Postoperatively the patient had persistent hematuria and was kept in the hospital for observation. The hematuria improved on a day today basis. He did end up receiving a total of 4 units packed red blood cells due to his anemia. By postop day #3, the hematuria was almost completely resolved, vital signs are stable and labs were stable. The decision was thus made to discharge the patient home with indwelling George catheter. Pt Condition on Discharge: Good Discharge Disposition: Discharge Home Discharge Instructions DIET: Follow Instructions for: As Tolerated, No Restrictions Activities you can perform: See Additionl Instruction Additional Activity Instructio: No strenuous activity Nir Mcelroy MD Aug 23, 2017 11:38
[2017-08-23 12:00] VITALS: BP 139/63; PULSE 60; RESP 18; TEMP 97.3; O2SAT 98
[2017-08-25] MEDS ORDERED: CIPR250T52 PO (10:25)
== END 2017-08-23 16:10 | disposition home or self-care (01) ==
LOC: HSDC 06:09 → HSDI 12:06 → N07B 15:33
PROVIDERS: ADMIT Urology; ATTEND Urology
DX: D49.4 Neoplasm of unspecified behavior of bladder (principal); N02.9 Recurrent and persistent hematuria with unspecified morphologic changes; D64.9 Anemia, unspecified; I48.91 Unspecified atrial fibrillation; I10 Essential (primary) hypertension; I25.10 Atherosclerotic heart disease of native coronary artery without angina pectoris; Z95.1 Presence of aortocoronary bypass graft
CPT/HCPCS: 00912; 36430; 52240; 80048; 85025; 85027; 86850; 86900; 86901; 86920; 88307; 96360; 96361; G0378; J0131; J1100; J1956; J2405; J2710; J3010; J7120; P9016

== ENCOUNTER 2017-08-25 08:39 | Emergency (ER) | payer MEDICARE ==
[2017-08-25 09:35] LABS: AUTOMATED NEUTROPHIL # 5.6 TH/MM3 (1.8-7.7); BASOPHIL # 0.1 TH/MM3 (0-0.2); BASOPHIL % 0.7 % (0.0-2.0); EOSINOPHIL # 0.4 TH/MM3 (0-0.4); EOSINOPHIL % 4.9 % (0.0-4.0); HEMATOCRIT 30.3 % (39.0-51.0); HEMO FLAGS DIFF FINAL; HEMOGLOBIN 10.2 GM/DL (13.0-17.0); LYMPH % 17.1 % (9.0-44.0); LYMPHOCYTE # 1.5 TH/MM3 (1.0-4.8); MEAN CELL VOLUME 88.1 FL (80.0-100.0); MEAN CORPUSCULAR HEMOGLOBIN 29.5 PG (27.0-34.0); MEAN CORPUSCULAR HGB CONC 33.5 % (32.0-36.0); MEAN PLATELET VOLUME 9.1 FL (7.0-11.0); MONO % 12.6 % (0.0-8.0); MONOCYTE # 1.1 TH/MM3 (0-0.9); NEUT % 64.7 % (16.0-70.0); PLATELET COUNT 132 TH/MM3 (150-450); RED BLOOD COUNT 3.44 MIL/MM3 (4.50-5.90); RED CELL DISTRIBUTION WIDTH 15.8 % (11.6-17.2); WHITE BLOOD COUNT 8.6 TH/MM3 (4.0-11.0)
[2017-08-25 10:01] LABS: AMORPHOUS SEDIMENT, URINE RARE; BACTERIA, URINE OCC /hpf; BILIRUBIN, URINE NEG (NEG); BLOOD, URINE MOD (NEG); GLUCOSE,URINE NEG (NEG); KETONE, URINE NEG (NEG); MUCUS URINE FEW /lpf (OCC); NITRITE,URINE NEG (NEG); TRANSITIONAL EPI CELLS, URINE 1 /hpf; URINE COLOR YELLOW (YELLW/STRAW); URINE LEUKOCYTE ESTERASE LARGE (NEG)
[2017-08-25 10:03] LABS: COMMENT (UR) CATH-CULTURE IND; CULTURE IF INDICATED CATH CULTURE IND
[2017-08-25 10:11] LABS: ANION GAP 7 MEQ/L (5-15); BICARBONATE 24.1 MEQ/L (21.0-32.0); CALCIUM 8.6 MG/DL (8.5-10.1); CHLORIDE 107 MEQ/L (98-107); CREATININE 2.42 MG/DL (0.60-1.30); GLOMERULAR FILTRATION RATE 25 ML/MIN (>89); GLUCOSE,RANDOM 106 MG/DL (74-106); POTASSIUM 4.1 MEQ/L (3.5-5.1); SODIUM (NA) 138 MEQ/L (136-145)
[2017-08-25 10:13] LABS: BLOOD UREA NITROGEN 42 MG/DL (7-18)
[2017-08-25] MEDS: CIPROFLOXACIN 200 MG PREMIX 100 ML IV (10:46)
== END 2017-08-25 12:34 | disposition home or self-care (01) ==
LOC: NEPE 08:39
DX: T83.091A Other mechanical complication of indwelling urethral catheter, initial encounter (principal); N39.0 Urinary tract infection, site not specified; E78.00 Pure hypercholesterolemia, unspecified; I11.0 Hypertensive heart disease with heart failure; I48.91 Unspecified atrial fibrillation; I25.10 Atherosclerotic heart disease of native coronary artery without angina pectoris; K21.9 Gastro-esophageal reflux disease without esophagitis; Z90.5 Acquired absence of kidney; Z95.5 Presence of coronary angioplasty implant and graft
CPT/HCPCS: 51700; 80048; 81001; 85025; 87086; 96374; 99284-25

== ENCOUNTER 2017-09-02 10:33 | Emergency (ER) | payer MEDICARE ==
[~2017-09-02 10:33] MED LIST changes: -ASPI81TA19 PO; +CIPR250T52 PO; -FURO1TAB60 PO; +PERC5TAB12 PO; +REST15CA PO; -SIMV20TA PO
[2017-09-02 10:40] VITALS: BP 159/68; PULSE 59; RESP 16; TEMP 98.6; O2SAT 99
--- NOTE | 2017-09-02 11:16 | PD ---
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 States his discharge paperwork from last week instructed him to return to his urologist for removal but unfortunately, they were unable to see him today, per patient. Pt denies any complaints today except for a band causing irritation to his leg. Says he has been emptying his bag regularly. Denies pelvic pressure or pain, back pain, fever, chills, abdominal pain. Patient denies nausea, vomiting, diarrhea. Patient does not know if he can urinate without the Porter catheter. PFSH Past Medical History Arthritis: Yes Asthma: No Blood Disorders: No Anxiety: No Depression: No Heart Rhythm Problems: Yes (A-fib) Cancer: Yes (prostate) Cardiac Catheterization: Yes (2005) Cardiovascular Problems: Yes High Cholesterol: Yes Chemotherapy: No Chest Pain: Yes Congestive Heart Failure: Yes COPD: No Cerebrovascular Accident: No Coronary Artery Disease: Yes Diabetes: No Diminished Hearing: No Endocrine: No Gastrointestinal Disorders: Yes GERD: Yes Glaucoma: No Genitourinary: Yes Hepatitis: No Hiatal Hernia: No Hypertension: Yes Immune Disorder: No Implanted Vascular Access Dvce: Yes Kidney Stones: No Musculoskeletal: No Neurologic: No Psychiatric: No Reproductive: No Respiratory: No Integumentary: No Migraines: No Myocardial Infarction: Yes Radiation Therapy: No Renal Failure: No Seizures: No Sickle Cell Disease: No Sleep Apnea: No Thyroid Disease: No Ulcer: No Past Surgical History Abdominal Surgery: No AICD: No Cardiac Surgery: Yes (CABG,PACEMAKER) Coronary Artery Bypass Graft: Yes (2005) Coronary Stent: Yes Ear Surgery: Yes Endocrine Surgery: No Eye Surgery: Yes (BILAT CATARACT SURGERY) Genitourinary Surgery: Yes (PROSTATECTOMY) Joint Replacement: Yes Oral Surgery: Yes (TONSILLECTOMY) Pacemaker: Yes Prostatectomy: Yes Thoracic Surgery: No Tonsillectomy: Yes Other Surgery: Yes Social History Alcohol Use: Yes (SOCIAL) Tobacco Use: No Substance Use: No Allergies-Medications (Allergen,Severity, Reaction): Coded Allergies: penicillin G (Verified Allergy, Severe, Rash, TEMP & DIZZINESS, 09/02/17) Reported Meds & Prescriptions Reported Meds & Active Scripts Active Restoril (Temazepam) 15 Mg Cap 15 Mg PO HS PRN Percocet (Oxycodone-Acetaminophen) 5-325 mg Tab 1 Tab PO Q4H PRN Reported Neurontin (Gabapentin) 100 Mg Cap 400 Mg PO HS Lasix (Furosemide) 40 Mg Tab 40 Mg PO DAILY Simvastatin 20 Mg Tab 20 Mg PO HS Cozaar (Losartan Potassium) 50 Mg Tab 100 Mg PO HS Carvedilol 12.5 Mg Tab 25 Mg PO BID Omeprazole 20 Mg Tab 20 Mg PO DAILY Amlodipine (Amlodipine Besylate) 10 Mg Tab 5 Mg PO DAILY Review of Systems Except as stated in HPI: all other systems reviewed are Neg Physical Exam Narrative GENERAL: Well-nourished, well-developed patient. SKIN: Focused skin assessment warm/dry. Right leg- 1cm area of blistering, consistent with band from urine bag. HEAD: Normocephalic. EYES: No scleral icterus. No injection or drainage. NECK: Supple, trachea midline. No JVD or lymphadenopathy. CARDIOVASCULAR: Regular rate and rhythm without murmurs, gallops, or rubs. RESPIRATORY: Breath sounds equal bilaterally. No accessory muscle use. GASTROINTESTINAL: Abdomen soft, non-tender, nondistended. No tenderness palpation of the pelvic area - Porter in place without exudate or erythema to the penis. No edema, erythema to the area. urine clear, yellow in bag MUSCULOSKELETAL: No cyanosis, or edema. BACK: Nontender without obvious deformity. No CVA tenderness. Data Data Last Documented VS Vital Signs Date Time Temp Pulse Resp B/P (MAP) Pulse Ox O2 Delivery O2 Flow Rate FiO2 09/02/17 13:57 09/02/17 13:52 65 14 97 Room Air 09/02/17 10:40 98.6 Orders Orders Remove Urinary Catheter .ONCE (09/02/17 11:05) Oral Rehydration (09/02/17 11:05) Notify : Urine Output (09/02/17 11:05) Ed Discharge Order (09/02/17 13:16) MDM Medical Decision Making Medical Screen Exam Complete: Yes Emergency Medical Condition: Yes Differential Diagnosis porter catheter removal, UTI, cystitis, bladder carcinoma Narrative Course 86y male presents to the ED for removal of his urinary catheter. States his discharge paperwork from last week instructed him to return to his urologist for removal but unfortunately, they were unable to see him today, per patient. Pt denies any complaints today except for a band causing irritation to his leg. Says he has been emptying his bag regularly. Denies pelvic pressure or pain, back pain, fever, chills, abdominal pain. Patient denies nausea, vomiting, diarrhea. Patient does not know if he can urinate without the Porter catheter. Vital signs stable. Patient's Porter was removed in the emergency department today. Patient is required to urinate prior to departing the emergency department today. Patient states that he urinated with ease after removal of the Porter. Patient states that he feels "normal". Patient denies abdominal pain, pelvic pain. Denies penile discharge or pain. Patient does have an appointment with urology September 06. asked me many questions to include whether or not he could drive or if he should start aspirin. I will defer his questions to his urologist. I strongly advised patient to follow-up as discussed. If there is evidence of obstruction or if he is unable to urinate to return to the emergency department immediately. Diagnosis Primary Impression: Encounter for Porter catheter removal Referrals: Urologist Additional Instructions: If there is evidence of obstruction or if you are unable to urinate return to the emergency department. Follow-up with urologist September 06 as previously discussed. Disposition: 01 DISCHARGE HOME Condition: Stable Rozina Paris Sep 02, 2017 11:16
[2017-09-02] MEDS ORDERED: NEUR100C PO (11:37)
[2017-09-02] MEDS ORDERED: FURO1TAB60 PO (11:37)
[2017-09-02] MEDS ORDERED: SIMV20TA PO (11:37)
[2017-09-02 13:52] VITALS: BP 171/85; PULSE 65; RESP 14; O2SAT 97
== END 2017-09-02 14:13 | disposition home or self-care (01) ==
LOC: NEPC 10:33
DX: Z46.6 Encounter for fitting and adjustment of urinary device (principal); I48.91 Unspecified atrial fibrillation; I25.10 Atherosclerotic heart disease of native coronary artery without angina pectoris; I10 Essential (primary) hypertension; I25.2 Old myocardial infarction; Z85.46 Personal history of malignant neoplasm of prostate; Z95.0 Presence of cardiac pacemaker; Z95.1 Presence of aortocoronary bypass graft; Z88.0 Allergy status to penicillin
CPT/HCPCS: 99281

== ENCOUNTER 2017-10-29 10:49 | Emergency (ER) | payer MEDICARE ==
[~2017-10-29 10:49] MED LIST changes: -CIPR250T52 PO; +FURO1TAB60 PO; -MAGN400T2 PO; +NEUR100C PO; +SIMV20TA PO
[2017-10-29 10:55] VITALS: BP 161/72; PULSE 60; RESP 16; TEMP 97.6; O2SAT 98
[2017-10-29 11:44] LABS: AUTOMATED NEUTROPHIL # 3.7 TH/MM3 (1.8-7.7); BASOPHIL % 0.7 % (0.0-2.0); EOSINOPHIL # 0.2 TH/MM3 (0-0.4); EOSINOPHIL % 2.9 % (0.0-4.0); HEMATOCRIT 26.6 % (39.0-51.0); HEMOGLOBIN 8.9 GM/DL (13.0-17.0); LYMPH % 23.8 % (9.0-44.0); LYMPHOCYTE # 1.4 TH/MM3 (1.0-4.8); MEAN CELL VOLUME 90.3 FL (80.0-100.0); MEAN CORPUSCULAR HEMOGLOBIN 30.2 PG (27.0-34.0); MEAN CORPUSCULAR HGB CONC 33.4 % (32.0-36.0); MEAN PLATELET VOLUME 8.5 FL (7.0-11.0); MONO % 12.2 % (0.0-8.0); MONOCYTE # 0.7 TH/MM3 (0-0.9); NEUT % 60.4 % (16.0-70.0); PLATELET COUNT 219 TH/MM3 (150-450); RED BLOOD COUNT 2.95 MIL/MM3 (4.50-5.90); RED CELL DISTRIBUTION WIDTH 16.7 % (11.6-17.2); WHITE BLOOD COUNT 6.1 TH/MM3 (4.0-11.0)
--- NOTE | 2017-10-29 11:52 | RADRPT ---
EXAM DATE/TIME: 10/29/2017 11:31 [facility] COMPARISON: No previous studies available for comparison. INDICATIONS : Chest pain while walking. MEDICAL HISTORY : Congestive heart failure. Hypertension Carcinoma, prostatic. SURGICAL HISTORY : Pacemaker. CABG. Prostatectomy. ENCOUNTER: Initial ACUITY: 1 day PAIN SCORE: 5/10 LOCATION: Bilateral chest FINDINGS: Heart size enlarged. Postop CABG. Pacer leads in right atrium and right ventricle. Mild edema pattern with small bilateral pleural effusions. CONCLUSION: 1. Cardiomegaly with mild interstitial edema pattern. Small effusions. Miller Fernandez MD on October 29, 2017 at 11:48 Board Certified Radiologist. This report was verified electronically.
[2017-10-29 11:54] LABS: INTERNATIONAL NORMALIZED RATIO 1.3 RATIO; PROTHROMBIN TIME - PATIENT 13.5 SEC (9.8-11.6)
[2017-10-29 12:00] LABS: CALCIUM 8.5 MG/DL (8.5-10.1); CREATININE 1.83 MG/DL (0.60-1.30)
[2017-10-29 12:03] LABS: TROPONIN I 0.14 NG/ML (0.02-0.05)
[2017-10-29 12:13] VITALS: O2SAT 97
--- NOTE | 2017-10-29 12:14 | PD ---
HPI Chief Complaint: Chest Pain Time Seen by Provider: 11:55 Travel History International Travel<30 days: No Contact w/Intl Traveler<30days: No Traveled to known affect area: No History of Present Illness HPI Patient is an 87-year-old male with a history of bypass 5 presents emergency department for evaluation of chest pain for the past 2-3 days. He states is worsened when he lies down and he is shortness of breath on minimal exertion. He states symptoms for the past 2-3 days, gradually worsening. He went to his furniture upholsterer apprentice Dr. Vincent today who referred him immediately to the emergency department. Patient states currently his symptoms are fairly well-controlled, he did take his baby aspirin this morning. Denies any shortness of breath at rest. Denies any cough congestion runny nose fevers. PFSH Past Medical History Arthritis: Yes Asthma: No Blood Disorders: No Anxiety: No Depression: No Heart Rhythm Problems: Yes (A-fib) Cancer: Yes (prostate) Cardiac Catheterization: Yes (2005) Cardiovascular Problems: Yes High Cholesterol: Yes Chemotherapy: No Chest Pain: Yes Congestive Heart Failure: Yes COPD: No Cerebrovascular Accident: No Coronary Artery Disease: Yes Diabetes: No Diminished Hearing: No Endocrine: No Gastrointestinal Disorders: Yes GERD: Yes Glaucoma: No Genitourinary: Yes Hepatitis: No Hiatal Hernia: No Hypertension: Yes Immune Disorder: No Implanted Vascular Access Dvce: Yes Kidney Stones: No Musculoskeletal: No Neurologic: No Psychiatric: No Reproductive: No Respiratory: No Integumentary: No Migraines: No Myocardial Infarction: Yes Radiation Therapy: No Renal Failure: No Seizures: No Sickle Cell Disease: No Sleep Apnea: No Thyroid Disease: No Ulcer: No Past Surgical History Abdominal Surgery: No AICD: No Cardiac Surgery: Yes (CABG,PACEMAKER) Coronary Artery Bypass Graft: Yes (2005) Coronary Stent: Yes Ear Surgery: Yes Endocrine Surgery: No Eye Surgery: Yes (BILAT CATARACT SURGERY) Genitourinary Surgery: Yes (PROSTATECTOMY) Joint Replacement: Yes Oral Surgery: Yes (TONSILLECTOMY) Pacemaker: Yes Prostatectomy: Yes Thoracic Surgery: No Tonsillectomy: Yes Other Surgery: Yes Social History Alcohol Use: Yes (SOCIAL) Tobacco Use: No Substance Use: No Allergies-Medications (Allergen,Severity, Reaction): Coded Allergies: penicillin G (Verified Allergy, Severe, Rash, TEMP & DIZZINESS, 09/02/17) Reported Meds & Prescriptions Reported Meds & Active Scripts Active Restoril (Temazepam) 15 Mg Cap 15 Mg PO HS PRN Percocet (Oxycodone-Acetaminophen) 5-325 mg Tab 1 Tab PO Q4H PRN Reported Aspirin 81 Mg Chew 81 Mg CHEW DAILY Neurontin (Gabapentin) 100 Mg Cap 400 Mg PO HS Lasix (Furosemide) 40 Mg Tab 40 Mg PO DAILY Simvastatin 20 Mg Tab 20 Mg PO HS Cozaar (Losartan Potassium) 50 Mg Tab 100 Mg PO HS Carvedilol 12.5 Mg Tab 25 Mg PO BID Omeprazole 20 Mg Tab 20 Mg PO DAILY Amlodipine (Amlodipine Besylate) 10 Mg Tab 5 Mg PO DAILY Review of Systems Except as stated in HPI: all other systems reviewed are Neg Physical Exam Narrative GENERAL: Well-developed well-nourished, no obvious distress. SKIN: Focused skin assessment warm/dry. HEAD: Atraumatic. Normocephalic. EYES: Pupils equal and round. No scleral icterus. No injection or drainage. ENT: No nasal bleeding or discharge. Mucous membranes pink and moist. NECK: Trachea midline. No JVD. CARDIOVASCULAR: Regular rate and rhythm. No murmur appreciated. 2+ but equal pulses in all 4 extremities. RESPIRATORY: No accessory muscle use. Clear to auscultation. Breath sounds equal bilaterally. GASTROINTESTINAL: Abdomen soft, non-tender, nondistended. Hepatic and splenic margins not palpable. MUSCULOSKELETAL: No obvious deformities. No clubbing. No cyanosis. Trace edema of the lower extremities. NEUROLOGICAL: Awake and alert. No obvious cranial nerve deficits. Motor grossly within normal limits. Normal speech. PSYCHIATRIC: Appropriate mood and affect; insight and judgment normal. Data Data Last Documented VS Vital Signs Date Time Temp Pulse Resp B/P (MAP) Pulse Ox O2 Delivery O2 Flow Rate FiO2 10/29/17 12:13 97 Room Air 10/29/17 10:55 97.6 60 16 161/72 (101) Orders Orders Complete Blood Count With Diff (10/29/17 11:01) Basic Metabolic Panel (Bmp) (10/29/17 11:01) Ckmb (Isoenzyme) Profile (10/29/17 11:01) Troponin I (10/29/17 11:01) Iv Access Insert/Monitor (10/29/17 11:01) Ecg Monitoring (10/29/17 11:01) Oxygen Administration (10/29/17 11:01) Oximetry (10/29/17 11:01) Chest, Pa & Lat (10/29/17 ) Act Partial Throm Time (Ptt) (10/29/17 11:06) Prothrombin Time / Inr (Pt) (10/29/17 11:06) Aspirin Chew (Aspirin Chew) (10/29/17 13:15) Aspirin Chew (Aspirin Chew) (10/29/17 13:15) Electrocardiogram (10/29/17 ) Troponin I (10/29/17 13:36) Labs Laboratory Tests Test 10/29/17 11:15 10/29/17 14:04 White Blood Count 6.1 TH/MM3 Red Blood Count 2.95 MIL/MM3 Hemoglobin 8.9 GM/DL Hematocrit 26.6 % Mean Corpuscular Volume 90.3 FL Mean Corpuscular Hemoglobin 30.2 PG Mean Corpuscular Hemoglobin Concent 33.4 % Red Cell Distribution Width 16.7 % Platelet Count 219 TH/MM3 Mean Platelet Volume 8.5 FL Neutrophils (%) (Auto) 60.4 % Lymphocytes (%) (Auto) 23.8 % Monocytes (%) (Auto) 12.2 % Eosinophils (%) (Auto) 2.9 % Basophils (%) (Auto) 0.7 % Neutrophils # (Auto) 3.7 TH/MM3 Lymphocytes # (Auto) 1.4 TH/MM3 Monocytes # (Auto) 0.7 TH/MM3 Eosinophils # (Auto) 0.2 TH/MM3 Basophils # (Auto) 0.0 TH/MM3 CBC Comment DIFF FINAL Differential Comment Prothrombin Time 13.5 SEC Prothromb Time International Ratio 1.3 RATIO Activated Partial Thromboplast Time 25.9 SEC Blood Urea Nitrogen 27 MG/DL Creatinine 1.83 MG/DL Random Glucose 124 MG/DL Calcium Level 8.5 MG/DL Sodium Level 140 MEQ/L Potassium Level 3.4 MEQ/L Chloride Level 108 MEQ/L Carbon Dioxide Level 24.0 MEQ/L Anion Gap 8 MEQ/L Estimat Glomerular Filtration Rate 35 ML/MIN Total Creatine Kinase 42 U/L Troponin I 0.14 NG/ML 0.18 NG/ML MDM Medical Decision Making Medical Screen Exam Complete: Yes Emergency Medical Condition: Yes Differential Diagnosis ACS, CA, coronary artery disease, pneumonia, dissection seems unlikely, PE seems unlikely. Narrative Course Patient room to the emergency department, initial EKG is nonischemic, the patient troponin elevated at 0.14, trending up to 0.18. We attempted to page the patient's furniture upholsterer apprentice Dr. Landry Vincent several times with no response, patient overhead. Patient chest pain-free, he has been having elevated troponins in the past. He informs me that if he were to have significant coronary artery disease he would not at his age want to have a heart bypass again. I was approached by his several times since he is becoming impatient and wants to leave and states that her wants to leave as well. He apparently has orders for an echocardiogram tomorrow. Unfortunately Dr. Landry Vincent is not able to provide consultation on his patient at this time as he is not responded to pages. I therefore counseled the patient that I would like Dr. Vincent opinion prior to discharging him versus admitting him and they verbalized understanding. Until I have spoken to Dr. Vincent regarding the patient's follow-up I am uncomfortable discharging him with these troponins being elevated even though they have been elevated in the past. I therefore have counseled him on the risk of major adverse cardiac events including and permanent disability. The patient stated initially that he thought this can wait till tomorrow. I have informed him that he is at risk of major adverse cardiac event and he could happen before he has a chance to follow -up tomorrow until I talk with Dr. Vincent I cannot advise him further. He therefore verbalized understanding of the risks of major adverse cardiac event including and permanent or temporary partial or complete disability and accepted those risks. He signed a formal AGAINST MEDICAL ADVICE paper and was discharged to his own recognizance. Shortly after counseling the patient about AGAINST MEDICAL ADVICE risks the patient's furniture upholsterer apprentice Dr. Vincent called back and recommended the patient be observation status for troponin trending in a minimum and cardiac consultation with him. This information was relayed to the patient and he still said he wanted to follow-up outpatient, I re-counseled him on the risks benefits as above of signing out AGAINST MEDICAL ADVICE he still chose to sign out AMA, he was signing a formal AMA paper and was discharged into his own recognizance Diagnosis Primary Impression: Chest pain Disposition: 07 AGAINST MEDICAL ADVICE Condition: Stable Torsten Canales MD Oct 29, 2017 12:14
[2017-10-29] MEDS ORDERED: ASPI-516 CHEW (12:15)
[2017-10-29] MEDS ORDERED: ASPIRIN 81 MG CHEW TAB CHEW ONE ×2 (13:15)
--- NOTE | 2017-10-30 23:07 | EKG ---
Date Performed: 10/29/2017 Time Performed: 11:06:27 PTAGE: 87 years EKG: ELECTRONIC ATRIAL PACEMAKER ELECTRONIC VENTRICULAR PACEMAKER ABNORMAL RHYTHM ECG NO PREVIOUS TRACING Since the previous tracing, no significant change noted DOCTOR: Reggie Ewing Interpretating Date/Time 10/30/2017 23:06:22
[2017-11-05] MEDS ORDERED: MAGN400T2 PO (15:25)
[2017-11-05] MEDS ORDERED: FERR325T18 PO (15:25)
[2017-11-05] MEDS ORDERED: ISOS30TA3 PO (15:25)
[2017-11-05] MEDS ORDERED: CLOP75TA PO (15:25)
== END 2017-10-29 16:12 | disposition left against medical advice (07) ==
LOC: NEPC 10:49
DX: R07.9 Chest pain, unspecified (principal); R94.31 Abnormal electrocardiogram [ECG] [EKG]; I51.7 Cardiomegaly; J90 Pleural effusion, not elsewhere classified; I48.91 Unspecified atrial fibrillation; I11.0 Hypertensive heart disease with heart failure; I50.9 Heart failure, unspecified; I25.2 Old myocardial infarction; Z95.1 Presence of aortocoronary bypass graft
CPT/HCPCS: 71046; 80048; 82550; 84484; 85025; 85610; 85730; 93005

== ENCOUNTER 2017-12-26 14:53 | Observation (INO) | payer MEDICARE ==
[~2017-12-26] VITALS: Ht 162.6 cm; Wt 73.0 kg
[2017-12-26] VITALS (10 sets, daily range): BP systolic 149–187; BP diastolic 63–83; PULSE 60–77; RESP 16–18; TEMP 98.1–98.5; O2SAT 96–99
[~2017-12-26 14:53] MED LIST changes: +ASPI-516 CHEW; +CLOP75TA PO; +FERR325T18 PO; +ISOS30TA3 PO; +MAGN400T2 PO; -NEUR100C PO
[2017-12-26] MEDS ORDERED: PANTOPRAZOLE INJ 80 MG in SODIUM CHLORIDE 0.9% INJ 35 ML IV ONE (16:05)
[2017-12-26] MEDS ORDERED: SODIUM CHLORIDE 0.9% FLUSH 10 ML FLUSH IVF PRN (16:15)
--- NOTE | 2017-12-26 16:20 | PD ---
HPI Chief Complaint: Abnormal Results Time Seen by Provider: 15:59 Travel History International Travel<30 days: No Contact w/Intl Traveler<30days: No Traveled to known affect area: No History of Present Illness HPI 87-year-old male presents for evaluation of low hemoglobin level. He reports that 3 different physicians called today and told him that his hemoglobin was low. He has a paper that shows that his hemoglobin was 6.3 on December 23. He reports that for the past 3-4 weeks he has been having black stool. He reports that he was on iron supplements at some point about a month ago but he has not been on any iron supplements for the past 2 weeks. He reports that earlier this week he was having fatigue and shortness of breath but that is resolved. He currently feels fine. Denies any chest pain, abdominal pain, nausea or vomiting, hematemesis, hematochezia. He has a history of metastatic urothelial cancer, coronary artery disease, pacemaker, hypertension, hyperlipidemia. Takes a baby aspirin daily. PFSH Past Medical History Arthritis: Yes Asthma: No Blood Disorders: No Anxiety: No Depression: No Heart Rhythm Problems: Yes (A-fib) Cancer: Yes (prostate) Cardiac Catheterization: Yes (2005) Cardiovascular Problems: Yes High Cholesterol: Yes Chemotherapy: No Chest Pain: Yes Congestive Heart Failure: Yes COPD: No Cerebrovascular Accident: No Coronary Artery Disease: Yes Diabetes: No Diminished Hearing: No Endocrine: No Gastrointestinal Disorders: Yes GERD: Yes Glaucoma: No Genitourinary: Yes Hepatitis: No Hiatal Hernia: No Hypertension: Yes Immune Disorder: No Implanted Vascular Access Dvce: Yes Kidney Stones: No Musculoskeletal: No Neurologic: No Psychiatric: No Reproductive: No Respiratory: No Integumentary: No Migraines: No Myocardial Infarction: Yes Radiation Therapy: No Renal Failure: No Seizures: No Sickle Cell Disease: No Sleep Apnea: No Thyroid Disease: No Ulcer: No Past Surgical History Abdominal Surgery: No AICD: No Cardiac Surgery: Yes (CABG,PACEMAKER) Coronary Artery Bypass Graft: Yes (2005) Coronary Stent: Yes Ear Surgery: Yes Endocrine Surgery: No Eye Surgery: Yes (BILAT CATARACT SURGERY) Genitourinary Surgery: Yes (PROSTATECTOMY) Insulin Pump: No Joint Replacement: Yes Oral Surgery: Yes (TONSILLECTOMY) Pacemaker: Yes Prostatectomy: Yes Thoracic Surgery: No Tonsillectomy: Yes Other Surgery: Yes Social History Alcohol Use: Yes (SOCIAL) Tobacco Use: No Substance Use: No Allergies-Medications (Allergen,Severity, Reaction): Coded Allergies: penicillin G (Verified Allergy, Severe, Rash, TEMP & DIZZINESS, 11/06/17) Reported Meds & Prescriptions Reported Meds & Active Scripts Active Restoril (Temazepam) 15 Mg Cap 15 Mg PO HS PRN Percocet (Oxycodone-Acetaminophen) 5-325 mg Tab 1 Tab PO Q4H PRN Reported Clopidogrel (Clopidogrel Bisulfate) 75 Mg Tab 75 Mg PO DAILY Isosorbide Mononitrate ER (Isosorbide Mononitrate) 30 Mg Steve 30 Mg PO DAILY Magnesium Oxide 400 Mg Tab 400 Mg PO DAILY Ferrous Sulfate 325 Mg (65 Mg Iron) Tablet 325 Mg PO BIDPC Aspirin 81 Mg Chew 81 Mg CHEW DAILY Lasix (Furosemide) 40 Mg Tab 40 Mg PO DAILY Simvastatin 20 Mg Tab 20 Mg PO HS Cozaar (Losartan Potassium) 50 Mg Tab 100 Mg PO HS Carvedilol 12.5 Mg Tab 25 Mg PO BID Omeprazole 20 Mg Tab 20 Mg PO DAILY Amlodipine (Amlodipine Besylate) 10 Mg Tab 5 Mg PO DAILY Review of Systems Except as stated in HPI: all other systems reviewed are Neg Physical Exam Narrative GENERAL: Well-developed well-nourished male in no acute distress SKIN: Warm and dry. HEAD: Atraumatic. Normocephalic. EYES: Pupils equal and round. No scleral icterus. No injection or drainage. ENT: No nasal bleeding or discharge. Mucous membranes pink and moist. NECK: Trachea midline. No JVD. CARDIOVASCULAR: Regular rate and rhythm. No murmur appreciated. RESPIRATORY: No accessory muscle use. Clear to auscultation. Breath sounds equal bilaterally. GASTROINTESTINAL: Abdomen soft, non-tender, nondistended. Hepatic and splenic margins not palpable. Rectal examination reveals black stool which is Hemoccult positive. MUSCULOSKELETAL: No obvious deformities. No clubbing. No cyanosis. No edema. NEUROLOGICAL: Awake and alert. No obvious cranial nerve deficits. Motor grossly within normal limits. Normal speech. PSYCHIATRIC: Appropriate mood and affect; insight and judgment normal. Data Data Last Documented VS Vital Signs Date Time Temp Pulse Resp B/P (MAP) Pulse Ox O2 Delivery O2 Flow Rate FiO2 12/26/17 16:26 60 18 176/77 (110) 99 Room Air 12/26/17 15:02 98.4 Orders Orders Comprehensive Metabolic Panel (12/26/17 16:05) Prothrombin Time / Inr (Pt) (12/26/17 16:05) Act Partial Throm Time (Ptt) (12/26/17 16:05) Type And Screen (12/26/17 16:05) Chest, Single Ap (12/26/17 16:05) Ecg Monitoring (12/26/17 16:05) Iv Access Insert/Monitor (12/26/17 16:05) Oximetry (12/26/17 16:05) Sodium Chloride 0.9% Flush (Ns Flush) (12/26/17 16:15) Complete Blood Count With Diff (12/26/17 16:05) Sodium Chloride 0.9... W/Pantoprazole In (12/26/17 16:05) Red Blood Cells (Rbc) (12/26/17 17:23) Blood Product Administration (12/26/17 17:23) Admit Order (Ed Use Only) (12/26/17 18:05) Npo After Midnight W/ Po Meds (12/26/17 Dinner) Sodium Chloride 0.9... W/Pantoprazole In (12/26/17 18:06) Labs Laboratory Tests Test 12/26/17 16:20 White Blood Count 6.0 TH/MM3 Red Blood Count 2.09 MIL/MM3 Hemoglobin 6.5 GM/DL Hematocrit 19.2 % Mean Corpuscular Volume 91.6 FL Mean Corpuscular Hemoglobin 31.1 PG Mean Corpuscular Hemoglobin Concent 34.0 % Red Cell Distribution Width 15.5 % Platelet Count 194 TH/MM3 Mean Platelet Volume 8.1 FL Neutrophils (%) (Auto) 49.4 % Lymphocytes (%) (Auto) 34.0 % Monocytes (%) (Auto) 12.4 % Eosinophils (%) (Auto) 3.5 % Basophils (%) (Auto) 0.7 % Neutrophils # (Auto) 2.9 TH/MM3 Lymphocytes # (Auto) 2.0 TH/MM3 Monocytes # (Auto) 0.7 TH/MM3 Eosinophils # (Auto) 0.2 TH/MM3 Basophils # (Auto) 0.0 TH/MM3 CBC Comment DIFF FINAL Differential Comment Prothrombin Time 12.9 SEC Prothromb Time International Ratio 1.3 RATIO Activated Partial Thromboplast Time 23.4 SEC Blood Urea Nitrogen 28 MG/DL Creatinine 1.93 MG/DL Random Glucose 103 MG/DL Total Protein 10.8 GM/DL Albumin 2.5 GM/DL Calcium Level 8.6 MG/DL Alkaline Phosphatase 45 U/L Aspartate Amino Transf (AST/SGOT) 12 U/L Alanine Aminotransferase (ALT/SGPT) 16 U/L Total Bilirubin 0.4 MG/DL Sodium Level 140 MEQ/L Potassium Level 3.8 MEQ/L Chloride Level 109 MEQ/L Carbon Dioxide Level 23.7 MEQ/L Anion Gap 7 MEQ/L Estimat Glomerular Filtration Rate 33 ML/MIN MDM Medical Decision Making Medical Screen Exam Complete: Yes Emergency Medical Condition: Yes Medical Record Reviewed: Yes Differential Diagnosis Upper GI bleed, AV malformation, esophageal varices, acute anemia Narrative Course Lab work, chest x-ray have been ordered. Guaiac positive black stool consistent with melena. The patient was given Protonix bolus. Hemoglobin is 6.5, the patient was given 2 units packed red blood cells. He will be admitted to [facility]. Protonix drip started. Discussed with Dr. Sanders and the patient will be admitted to Dr. Jaquez. npo after midnight. [facility] Point of Care Internal Pos. & Neg. Controls: Passed Fecal Specimen Occult Blood: Positive Diagnosis Primary Impression: Upper GI bleed Additional Impression: Anemia Admitting Information Admitting Physician Requests: it Juan Perez December 26, 2017 16:20
--- NOTE | 2017-12-26 16:42 | RADRPT ---
EXAM DATE: 12/26/2017 4:27 PM EDT AGE/SEX: 87 years / Male INDICATIONS: Sent by the doctor. Short of breath. CLINICAL DATA: This is the patient's initial encounter. Patient reports that signs and symptoms have been present for 1 day and indicates a pain score of 0/10. MEDICAL/SURGICAL HISTORY: Cardiovascular disease. Congestive heart failure. hypertension, pros velazco cancer Prostatectomy. Pacemaker. CABG. COMPARISON: [facility] [place], CHEST SINGLE AP, 03/12/2017. . FINDINGS: Stable postsurgical features of prior median sternotomy. Dual-lead pacemaker in stable position. No n ew focal pleural or parenchymal opacities. Cardiac silhouette is enlarged. Bony thorax is intact. CONCLUSION: 1. Compensated cardiomegaly. 2. No acute abnormality. Electronically signed by: Shady Villavicencio MD 12/26/2017 4:41 PM EDT
[2017-12-26 17:04] LABS: AUTOMATED NEUTROPHIL # 2.9 TH/MM3 (1.8-7.7); BASOPHIL % 0.7 % (0.0-2.0); EOSINOPHIL # 0.2 TH/MM3 (0-0.4); EOSINOPHIL % 3.5 % (0.0-4.0); MEAN CELL VOLUME 91.6 FL (80.0-100.0); MEAN CORPUSCULAR HEMOGLOBIN 31.1 PG (27.0-34.0); MEAN PLATELET VOLUME 8.1 FL (7.0-11.0); MONO % 12.4 % (0.0-8.0); MONOCYTE # 0.7 TH/MM3 (0-0.9); NEUT % 49.4 % (16.0-70.0); PLATELET COUNT 194 TH/MM3 (150-450); RED BLOOD COUNT 2.09 MIL/MM3 (4.50-5.90); RED CELL DISTRIBUTION WIDTH 15.5 % (11.6-17.2)
[2017-12-26 17:11] LABS: HEMATOCRIT 19.2 % (39.0-51.0); HEMOGLOBIN 6.5 GM/DL (13.0-17.0)
[2017-12-26 17:24] LABS: ALBUMIN 2.5 GM/DL (3.4-5.0); AST (GOT) 12 U/L (15-37); BICARBONATE 23.7 MEQ/L (21.0-32.0); BLOOD UREA NITROGEN 28 MG/DL (7-18); CALCIUM 8.6 MG/DL (8.5-10.1); CHLORIDE 109 MEQ/L (98-107); CREATININE 1.93 MG/DL (0.60-1.30); GLOMERULAR FILTRATION RATE 33 ML/MIN (>89); GLUCOSE,RANDOM 103 MG/DL (74-106); SODIUM (NA) 140 MEQ/L (136-145)
[2017-12-26 17:25] LABS: ALT (GPT) 16 U/L (12-78); INTERNATIONAL NORMALIZED RATIO 1.3 RATIO; PROTHROMBIN TIME - PATIENT 12.9 SEC (9.8-11.6)
[2017-12-26 17:28] LABS: ALKALINE PHOSPHATASE 45 U/L (45-117); TOTAL BILIRUBIN ADULT 0.4 MG/DL (0.2-1.0); TOTAL PROTEIN 10.8 GM/DL (6.4-8.2)
[2017-12-26] MEDS ORDERED: PANTOPRAZOLE INJ 80 MG in SODIUM CHLORIDE 0.9% INJ 100 ML IV SCH (18:06)
[2017-12-26] MEDS ORDERED: BISACODYL 10 MG SUPP RECTAL PRN (18:45)
[2017-12-26] MEDS ORDERED: NALOXONE HCL 0.4 MG/ML AMP IV PUSH PRN (18:45)
[2017-12-26] MEDS ORDERED: SENNOSIDES 8.6 MG TAB PO PRN (18:45)
[2017-12-26] MEDS ORDERED: MAGNESIUM HYDROXIDE SUSP 30 ML CUP PO PRN (18:45)
[2017-12-26] MEDS ORDERED: oxyCODONE/ACETAMINOPHEN 5 MG/325 MG TAB PO PRN (18:45)
[2017-12-26] MEDS ORDERED: SODIUM CHLORIDE 0.9% FLUSH 10 ML FLUSH IV FLUSH PRN (18:45)
[2017-12-26] MEDS ORDERED: TEMAZEPAM 15 MG CAP PO PRN (18:45)
[2017-12-26] MEDS ORDERED: LACTULOSE SYRUP 20 GM/30 ML CUP PO PRN (18:45)
[2017-12-26] MEDS: SODIUM CHLORIDE 0.9% FLUSH 10 ML FLUSH IV FLUSH SCH (21:00)
[2017-12-26] MEDS: DOCUSATE SODIUM 50 MG/SENNA 8.6 MG TAB PO SCH (21:28)
[2017-12-26] MEDS: CARVEDILOL 12.5 MG TAB PO SCH (21:28)
[2017-12-26] MEDS: LOSARTAN 50 MG TAB PO SCH (21:47)
--- NOTE | 2017-12-26 22:12 | HHI.HP ---
HPI Service [facility] Hospitalists Primary Care Physician Non-Staff Admission Diagnosis Upper GI bleed, anemia Chief Complaint: low hemoglobin with black stools Travel History International Travel<30 Days: No Contact w/Intl Traveler <30 Da: No Traveled to Known Affected Are: No History of Present Illness 87-year-old male presents for evaluation of low hemoglobin level. He reports that 3 different physicians called today and told him that his hemoglobin was low. He has a paper that shows that his hemoglobin was 6.3 on December 23. He reports that for the past 3-4 weeks he has been having black stool. He reports that he was on iron supplements at some point about a month ago but he has not been on any iron supplements for the past 2 weeks. He reports that earlier this week he was having fatigue and shortness of breath but that is resolved. He currently feels fine. Denies any chest pain, abdominal pain, nausea or vomiting, hematemesis, hematochezia. He has a history of metastatic urothelial cancer, coronary artery disease, pacemaker, hypertension, hyperlipidemia. Takes a baby aspirin daily. Patient was seen by oncology low blood tests sent to er . Patient will be admitted for further evaluation. 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 and lung Reported Medications Restoril (Temazepam) 15 Mg Cap 15 Mg PO HS PRN Percocet (Oxycodone-Acetaminophen) 5-325 mg Tab 1 Tab PO Q4H PRN Reported Clopidogrel (Clopidogrel Bisulfate) 75 Mg Tab 75 Mg PO DAILY Isosorbide Mononitrate ER (Isosorbide Mononitrate) 30 Mg Steve 30 Mg PO DAILY Magnesium Oxide 400 Mg Tab 400 Mg PO DAILY Ferrous Sulfate 325 Mg (65 Mg Iron) Tablet 325 Mg PO BIDPC Aspirin 81 Mg Chew 81 Mg CHEW DAILY Lasix (Furosemide) 40 Mg Tab 40 Mg PO DAILY Simvastatin 20 Mg Tab 20 Mg PO HS Cozaar (Losartan Potassium) 50 Mg Tab 100 Mg PO HS Carvedilol 12.5 Mg Tab 25 Mg PO BID Omeprazole 20 Mg Tab 20 Mg PO DAILY Amlodipine (Amlodipine Besylate) 10 Mg Tab 5 Mg PO DAILY Allergies: Coded Allergies: penicillin G (Verified Allergy, Severe, Rash, TEMP & DIZZINESS, 11/06/17) Social History current NS,ND Physical Exam Vital Signs Vital Signs Date Time Temp Pulse Resp B/P (MAP) Pulse Ox O2 Delivery O2 Flow Rate FiO2 12/26/17 22:00 98.3 75 16 178/72 98 12/26/17 20:30 98.1 71 16 162/74 98 12/26/17 20:15 98.5 66 16 187/76 98 12/26/17 19:54 98.2 73 16 182/83 98 12/26/17 19:34 73 16 181/80 (113) 99 Room Air 12/26/17 16:26 60 18 176/77 (110) 99 Room Air 12/26/17 16:26 18 99 Room Air 12/26/17 16:26 99 Room Air 12/26/17 15:02 98.4 60 16 149/63 (91) 99 Physical Exam GENERAL: This is a well-nourished, well-developed patient, in no apparent distress. SKIN: No rashes, ecchymoses or lesions. Cool and dry. HEAD: Atraumatic. Normocephalic. No temporal or scalp tenderness. EYES: Pupils equal round and reactive. Extraocular motions intact. No scleral icterus. No injection or drainage. ENT: Nose without bleeding, purulent drainage or septal hematoma. Throat without erythema, tonsillar hypertrophy or exudate. Uvula midline. Airway patent. NECK: Trachea midline. No JVD or lymphadenopathy. Supple, nontender, no meningeal signs. CARDIOVASCULAR: Regular rate and rhythm without murmurs, gallops, or rubs. RESPIRATORY: Clear to auscultation. Breath sounds equal bilaterally. No wheezes , rales, or rhonchi. GASTROINTESTINAL: Abdomen soft, non-tender, nondistended. No hepato-splenomegaly , or palpable masses. No guarding. positive dark stool MUSCULOSKELETAL: Extremities without clubbing, cyanosis, or edema. No joint tenderness, effusion, or edema noted. No calf tenderness. Negative Homans sign bilaterally. NEUROLOGICAL: Awake and alert. Cranial nerves II through XII intact. Motor and sensory grossly within normal limits. Five out of 5 muscle strength in all muscle groups. Normal speech. Laboratory Laboratory Tests Test 12/26/17 16:20 White Blood Count 6.0 Red Blood Count 2.09 Hemoglobin 6.5 Hematocrit 19.2 Mean Corpuscular Volume 91.6 Mean Corpuscular Hemoglobin 31.1 Mean Corpuscular Hemoglobin Concent 34.0 Red Cell Distribution Width 15.5 Platelet Count 194 Mean Platelet Volume 8.1 Neutrophils (%) (Auto) 49.4 Lymphocytes (%) (Auto) 34.0 Monocytes (%) (Auto) 12.4 Eosinophils (%) (Auto) 3.5 Basophils (%) (Auto) 0.7 Neutrophils # (Auto) 2.9 Lymphocytes # (Auto) 2.0 Monocytes # (Auto) 0.7 Eosinophils # (Auto) 0.2 Basophils # (Auto) 0.0 CBC Comment DIFF FINAL Differential Comment Prothrombin Time 12.9 Prothromb Time International Ratio 1.3 Activated Partial Thromboplast Time 23.4 Blood Urea Nitrogen 28 Creatinine 1.93 Random Glucose 103 Total Protein 10.8 Albumin 2.5 Calcium Level 8.6 Alkaline Phosphatase 45 Aspartate Amino Transf (AST/SGOT) 12 Alanine Aminotransferase (ALT/SGPT) 16 Total Bilirubin 0.4 Sodium Level 140 Potassium Level 3.8 Chloride Level 109 Carbon Dioxide Level 23.7 Anion Gap 7 Estimat Glomerular Filtration Rate 33 Result Diagram: 12/26/17 1620 12/26/17 1620 Imaging Last 24 hours Impressions Chest X-Ray 12/26/17 1605 Signed Impressions: CONCLUSION: 1. Compensated cardiomegaly. 2. No acute abnormality. Course in ER started on protonix drip and will receive blood transfusion 2 units Caprini VTE Risk Assessment Caprini VTE Risk Assessment: Mod/High Risk (score >= 2) Caprini Risk Assessment Model Point Value = 1 Point Value = 2 Point Value = 3 Point Value = 5 Age 41-60 Minor surgery BMI > 25 kg/m2 Swollen legs Varicose veins or History of unexplained or recurrent spontaneous Oral contraceptives or hormone replacement Sepsis (< 1 month) Serious lung disease, including pneumonia (< 1 month) Abnormal pulmonary function Acute myocardial infarction Congestive heart failure (< 1 month) History of inflammatory bowel disease Medical patient at bed rest Age 61-74 Arthroscopic surgery Major open surgery (> 45 min) Laparoscopic surgery (> 45 min) Malignancy Confined to bed (> 72 hours) Immobilizing plaster cast Central venous access Age >= 75 History of VTE Family history of VTE Factor V Leiden Prothrombin [id number] Lupus anticoagulant Anticardiolipin antibodies Elevated serum homocysteine Heparin-induced thrombocytopenia Other congenital or acquired thrombophilia Stroke (< 1 month) Elective arthroplasty Hip, pelvis, or leg fracture Acute spinal cord injury (< 1 month) Prophylaxis Regimen Total Risk Factor Score Risk Level Prophylaxis Regimen 0-1 Low Early ambulation 2 Moderate Order ONE of the following: *Sequential Compression Device (SCD) *Heparin 5000 units SQ BID 3-4 Higher Order ONE of the following medications: *Heparin 5000 units SQ TID *Enoxaparin/Lovenox 40 mg SQ daily (WT < 150 kg, CrCl > 30 mL/min) *Enoxaparin/Lovenox 30 mg SQ daily (WT < 150 kg, CrCl > 10-29 mL/min) *Enoxaparin/Lovenox 30 mg SQ BID (WT < 150 kg, CrCl > 30 mL/min) AND/OR *Sequential Compression Device (SCD) 5 or more Highest Order ONE of the following medications: *Heparin 5000 units SQ TID (Preferred with Epidurals) *Enoxaparin/Lovenox 40 mg SQ daily (WT < 150 kg, CrCl > 30 mL/min) *Enoxaparin/Lovenox 30 mg SQ daily (WT < 150 kg, CrCl > 10-29 mL/min) *Enoxaparin/Lovenox 30 mg SQ BID (WT < 150 kg, CrCl > 30 mL/min) AND *Sequential Compression Device (SCD) Assessment and Plan Problem List: (1) Upper GI bleed ICD Codes: K92.2 - Gastrointestinal hemorrhage, unspecified Status: Acute Plan: protonix drip GI consult (2) Urothelial carcinoma of kidney ICD Codes: C64.9 - Malignant neoplasm of unspecified kidney, except renal pelvis Status: Acute Plan: metastaic to lung followed by oncology will consult Assessment and Plan further plan as case develops Code Status full Discussed Condition With patient Physician Certification 2 Midnight Certification Type: Admission for Inpatient Services Order for Inpatient Services The services are ordered in accordance with Medicare regulations or non- Medicare payer requirements, as applicable. In the case of services not specified as inpatient-only, they are appropriately provided as inpatient services in accordance with the 2-midnight benchmark. Estimated LOS (days): 3 3 days is the estimated time the patient will need to remain in the hospital, assuming treatment plan goals are met and no additional complications. Post-Hospital Plan: Not yet determined Cucchiarella,Akin C. MD December 26, 2017 22:12
[2017-12-27] VITALS (11 sets, daily range): BP systolic 139–174; BP diastolic 66–78; PULSE 60–78; RESP 16–20; TEMP 97.4–98.4; O2SAT 95–100
[2017-12-27 04:48] LABS: BASOPHIL % 0.6 % (0.0-2.0); EOSINOPHIL # 0.2 TH/MM3 (0-0.4); HEMATOCRIT 23.4 % (39.0-51.0); LYMPH % 26.3 % (9.0-44.0); LYMPHOCYTE # 1.8 TH/MM3 (1.0-4.8); MEAN CELL VOLUME 88.5 FL (80.0-100.0); MEAN CORPUSCULAR HEMOGLOBIN 30.3 PG (27.0-34.0); MEAN CORPUSCULAR HGB CONC 34.3 % (32.0-36.0); MONO % 11.8 % (0.0-8.0); MONOCYTE # 0.8 TH/MM3 (0-0.9); NEUT % 58.3 % (16.0-70.0); PLATELET COUNT 191 TH/MM3 (150-450); RED BLOOD COUNT 2.65 MIL/MM3 (4.50-5.90); WHITE BLOOD COUNT 6.8 TH/MM3 (4.0-11.0)
[2017-12-27] MEDS: PANTOPRAZOLE INJ 80 MG in SODIUM CHLORIDE 0.9% INJ 100 ML IV SCH ×2 (04:50→15:29)
[2017-12-27 05:17] LABS: BICARBONATE 24.1 MEQ/L (21.0-32.0); CALCIUM 8.6 MG/DL (8.5-10.1); CREATININE 1.66 MG/DL (0.60-1.30)
[2017-12-27] MEDS: DOCUSATE SODIUM 50 MG/SENNA 8.6 MG TAB PO SCH ×2 (08:35→21:00)
[2017-12-27] MEDS: ISOSORBIDE MONONITRATE 30 MG CR TAB (IMDUR) PO SCH (08:35)
[2017-12-27] MEDS: FUROSEMIDE 40 MG TAB PO SCH (08:35)
[2017-12-27] MEDS: CARVEDILOL 12.5 MG TAB PO SCH ×2 (08:35→21:59)
[2017-12-27] MEDS: FERROUS SULFATE 325 MG (65 MG ELEMENTAL IRON) TAB PO SCH ×2 (08:35→18:16)
[2017-12-27] MEDS: amLODIPine BESYLATE 5 MG TAB PO SCH (08:36)
[2017-12-27] MEDS: MAGNESIUM OXIDE 400 MG TAB PO SCH (08:36)
[2017-12-27] MEDS: SODIUM CHLORIDE 0.9% FLUSH 10 ML FLUSH IV FLUSH SCH ×2 (08:41→21:00)
--- NOTE | 2017-12-27 08:52 | PD.CONS ---
HPI History of Present Illness This is a 87 year old male with history of metastatic urothelial cancer, coronary artery disease, pacemaker, hypertension, hyperlipidemia who presents to [place] [facility] [place] abnormal out patient labs. hgb was 6.3 on 12/23. He endorses few weeks of black stools. He started iron supplement about a month ago but hasn't been taking for the past 2 weeks. Takes a baby aspirin daily. He reports that earlier this week he was having fatigue and shortness of breath on exertion. Denies any chest pain, abdominal pain, nausea or vomiting, hematemesis, hematochezia. Denies previous hx of this, denies NSAIDs or alcohol intake. Never had colonoscopy before. Currently pt is doing good, no melena this morning. He is s/p 2 units of blood, hgb today is 8 (Desire Brenner) PFSH Past Medical History a fib,prostate ca, pacemaker CAD CHF,KS GERD hypertension metastatic disease renal, lung on [id number] q 3 week Past Surgical History CABG oacer,left nepho ureterostomy known metastatic disease to renal and lung (Desire Brenner) Coded Allergies: penicillin G (Verified Allergy, Severe, Rash, TEMP & DIZZINESS, 11/06/17) Medications Current Medications Medications (Trade) Dose Ordered Sig/Jenny Route Start Time Stop Time Status Last Admin (NS Flush) 2 ml UNSCH PRN IVF 12/26/17 16:15 Pantoprazole Sodium 80 mg/ Sodium Chloride 100 ml @ 10 mls/hr CONTINUOUS IV 12/27/17 04:00 12/27/17 04:50 (Norvasc) 5 mg DAILY PO 12/27/17 09:00 (Coreg) 25 mg BID PO 12/26/17 21:00 12/26/17 21:28 (Ferrous Sulfate) 325 mg BIDPC PO 12/27/17 09:00 (Lasix) 40 mg DAILY PO 12/27/17 09:00 (Imdur) 30 mg DAILY PO 12/27/17 09:00 (Cozaar) 100 mg HS PO 12/26/17 21:00 12/26/17 21:47 (Mag-Ox) 400 mg DAILY PO 12/27/17 09:00 (Percocet 5-325 Mg) 1 tab Q4H PRN PO 12/26/17 18:45 (Restoril) 15 mg HS PRN PO 12/26/17 18:45 (NS Flush) 2 ml UNSCH PRN IV FLUSH 12/26/17 18:45 (NS Flush) 2 ml BID IV FLUSH 12/26/17 21:00 (Narcan Inj) 0.4 mg UNSCH PRN IV PUSH 12/26/17 18:45 (Gabby-Colace) 1 tab BID PO 12/26/17 21:00 12/26/17 21:28 (Milk Of Magnesia Liq) 30 ml Q12H PRN PO 12/26/17 18:45 (Senokot) 17.2 mg Q12H PRN PO 12/26/17 18:45 (Dulcolax Supp) 10 mg DAILY PRN RECTAL 12/26/17 18:45 (Lactulose Liq) 30 ml DAILY PRN PO 12/26/17 18:45 Family History No known family hx of colon cancer Social History No alcohol No smoking No illicit drug use (Desire Brenner) Review of Systems Constitutional: COMPLAINS OF: Fatigue Endocrine: DENIES: Polyuria Eyes: DENIES: Double Vision Ears, nose, mouth, throat: DENIES: Hoarseness Respiratory: COMPLAINS OF: Shortness of breath Cardiovascular: DENIES: Lower Extremity Edema Gastrointestinal: COMPLAINS OF: Black stools, DENIES: Abdominal pain, Bloody stools, Constipation, Diarrhea, Nausea, Vomiting, Difficulty Swallowing, Anorexia, Odynophagia, Swelling of Abdomen, Heartburn, Hematemesis Genitourinary: DENIES: Hematuria Musculoskeletal: DENIES: Back pain Hematologic/lymphatic: DENIES: Bruising Immunologic/allergic: DENIES: Eczema Neurologic: DENIES: Abnormal gait Psychiatric: DENIES: Anxiety (Desire Brenner) GI Exam Vitals I&O Vital Signs Date Time Temp Pulse Resp B/P (MAP) Pulse Ox O2 Delivery O2 Flow Rate FiO2 12/27/17 07:44 98.4 77 17 172/76 (108) 97 Room Air 12/27/17 06:49 98.3 77 18 174/78 (110) 98 Room Air 12/27/17 00:38 98.1 60 16 164/74 96 12/26/17 23:10 98.2 77 16 170/80 97 12/26/17 22:55 98.2 77 16 181/83 96 12/26/17 22:40 98.5 77 16 173/77 98 12/26/17 22:00 98.3 75 16 178/72 98 12/26/17 20:30 98.1 71 16 162/74 98 12/26/17 20:15 98.5 66 16 187/76 98 12/26/17 19:54 98.2 73 16 182/83 98 12/26/17 19:34 73 16 181/80 (113) 99 Room Air 12/26/17 16:26 60 18 176/77 (110) 99 Room Air 12/26/17 16:26 18 99 Room Air 12/26/17 16:26 99 Room Air 12/26/17 15:02 98.4 60 16 149/63 (91) 99 I/O 12/26/17 12/26/17 12/26/17 12/27/17 12/27/17 12/27/17 07:00 15:00 23:00 07:00 15:00 23:00 Intake Total 550 ml 650 ml Output Total 250 ml Balance 550 ml 400 ml Packed Cells 400 ml 400 ml Blood Product IV Normal Saline Flush 150 ml 250 ml Output Urine Total 250 ml # Voids 1 Imaging Last Impressions Chest X-Ray 12/26/17 1605 Signed Impressions: CONCLUSION: 1. Compensated cardiomegaly. 2. No acute abnormality. Laboratory Test 12/26/17 16:20 12/27/17 04:05 White Blood Count 6.0 TH/MM3 6.8 TH/MM3 Red Blood Count 2.09 MIL/MM3 2.65 MIL/MM3 Hemoglobin 6.5 GM/DL 8.0 GM/DL Hematocrit 19.2 % 23.4 % Mean Corpuscular Volume 91.6 FL 88.5 FL Mean Corpuscular Hemoglobin 31.1 PG 30.3 PG Mean Corpuscular Hemoglobin Concent 34.0 % 34.3 % Red Cell Distribution Width 15.5 % 16.0 % Platelet Count 194 TH/MM3 191 TH/MM3 Mean Platelet Volume 8.1 FL 8.0 FL Neutrophils (%) (Auto) 49.4 % 58.3 % Lymphocytes (%) (Auto) 34.0 % 26.3 % Monocytes (%) (Auto) 12.4 % 11.8 % Eosinophils (%) (Auto) 3.5 % 3.0 % Basophils (%) (Auto) 0.7 % 0.6 % Neutrophils # (Auto) 2.9 TH/MM3 4.0 TH/MM3 Lymphocytes # (Auto) 2.0 TH/MM3 1.8 TH/MM3 Monocytes # (Auto) 0.7 TH/MM3 0.8 TH/MM3 Eosinophils # (Auto) 0.2 TH/MM3 0.2 TH/MM3 Basophils # (Auto) 0.0 TH/MM3 0.0 TH/MM3 CBC Comment DIFF FINAL DIFF FINAL Differential Comment Prothrombin Time 12.9 SEC Prothromb Time International Ratio 1.3 RATIO Activated Partial Thromboplast Time 23.4 SEC Blood Urea Nitrogen 28 MG/DL 23 MG/DL Creatinine 1.93 MG/DL 1.66 MG/DL Random Glucose 103 MG/DL 99 MG/DL Total Protein 10.8 GM/DL Albumin 2.5 GM/DL Calcium Level 8.6 MG/DL 8.6 MG/DL Alkaline Phosphatase 45 U/L Aspartate Amino Transf (AST/SGOT) 12 U/L Alanine Aminotransferase (ALT/SGPT) 16 U/L Total Bilirubin 0.4 MG/DL Sodium Level 140 MEQ/L 141 MEQ/L Potassium Level 3.8 MEQ/L 3.4 MEQ/L Chloride Level 109 MEQ/L 108 MEQ/L Carbon Dioxide Level 23.7 MEQ/L 24.1 MEQ/L Anion Gap 7 MEQ/L 9 MEQ/L Estimat Glomerular Filtration Rate 33 ML/MIN 39 ML/MIN Physical Examination HEENT: Pupils round and reactive to light; normocephalic; atraumatic; no jaundice. CHEST: Chest is clear to auscultation and percussion. CARDIAC: Regular rate and rhythm with no murmur gallop or rubs. ABDOMEN: Soft, nondistended, nontender; no hepatosplenomegaly; bowel sounds are present in all four quadrants. EXTREMITIES: No clubbing, cyanosis, or edema. SKIN: Normal; no rash; no jaundice. HEALTHCARE INTERPRETER: No focal deficits; alert and oriented times three. (Desire Brenner) Assessment and Plan Plan - Melena X 2 weeks/anemia- who presents to the [facility] for abnormal out patient labs. hgb was 6.3 on 12/23. He endorses few weeks of black stools. He started iron supplement about a month ago but hasn't been taking for the past 2 weeks. Takes a baby aspirin daily. He reports that earlier this week he was having fatigue and shortness of breath on exertion. Denies any chest pain, abdominal pain, nausea or vomiting, hematemesis, hematochezia. Denies previous hx of this, denies NSAIDs or alcohol intake. Never had colonoscopy before. Currently pt is doing good, no melena this morning. He is s/ p 2 units of blood, hgb today is 8, PPI - history of metastatic urothelial cancer, lungs- followed by oncology - coronary artery disease, pacemaker, hypertension, hyperlipidemia per attending Plan: - NPO - EGD today - cont. PPI drip - Monitor hh - Transfuse as needed - If above negative, consider colonoscopy - Supportive care - Patient seen and examined by myself and this note is written on his behalf (Desire Brenner) Physician Comments Patient seen and examined Agree with above Continue with current supportive care Monitor labs Plan on an EGD today (Giancarlo Sanchez MD) Desire Brenner December 27, 2017 08:52 Giancarlo Sanchez MD December 27, 2017 12:20
--- NOTE | 2017-12-27 16:22 | PD.PROCEDR ---
GI Procedure PROCEDURE PERFORMED EGD with biopsy INDICATION FOR PROCEDURE Melena, anemia PROCEDURE: The procedure, risks and benefits were discussed with Patient/POA and informed consent was obtained. Anesthesia sedated Patient with Diprivan. Patient was placed in the left lateral decubitus position. EGD: The Pentax videoscope was introduced through the oropharynx and advanced to the second portion of the duodenum under direct visualization. Retroflexion was performed in the stomach. FINDINGS: The esophagus this was normal The stomach there was a bulging mass on the greater curve of the stomach that appears to have a small ulceration on the side but no visible vessel no active bleeding this most likely a metastases from the patient's known cancer the rest of the stomach was unremarkable The duodenum was also unremarkable and within normal limits ESTIMATED BLOOD LOSS: None SPECIMENS REMOVED: Gastric mass biopsy COMPLICATIONS: None IMPRESSION: Gastric mass probable metastatic lesion PLAN: Await biopsy Continue with current supportive care Continue with PPI Giancarlo Sanchez MD December 27, 2017 16:22
--- NOTE | 2017-12-27 16:53 | HHI.PR ---
Subjective Remarks Patient offers no new complaints/concerns Objective Vitals Vital Signs Date Time Temp Pulse Resp B/P (MAP) Pulse Ox O2 Delivery O2 Flow Rate FiO2 12/27/17 16:30 75 14 147/62 (90) 96 Room Air 12/27/17 16:15 74 14 168/73 (104) 94 Room Air 12/27/17 15:58 97.6 74 14 120/70 (87) 93 Room Air 12/27/17 13:30 98.3 78 17 173/86 (115) 98 12/27/17 12:45 75 12/27/17 12:00 98.0 76 20 139/68 (91) 96 12/27/17 09:49 12/27/17 09:30 97.4 76 18 173/78 (109) 97 12/27/17 07:44 98.4 77 17 172/76 (108) 97 Room Air 12/27/17 06:49 98.3 77 18 174/78 (110) 98 Room Air 12/27/17 00:38 98.1 60 16 164/74 96 12/26/17 23:10 98.2 77 16 170/80 97 12/26/17 22:55 98.2 77 16 181/83 96 12/26/17 22:40 98.5 77 16 173/77 98 12/26/17 22:00 98.3 75 16 178/72 98 12/26/17 20:30 98.1 71 16 162/74 98 12/26/17 20:15 98.5 66 16 187/76 98 12/26/17 19:54 98.2 73 16 182/83 98 12/26/17 19:34 73 16 181/80 (113) 99 Room Air 12/27/17 12/27/17 12/28/17 15:00 23:00 07:00 Intake Total 100 ml Balance 100 ml Other 100 ml Result Diagram: 12/27/17 0405 12/27/17 0405 Other Results Laboratory Tests Test 12/26/17 16:20 12/27/17 04:05 White Blood Count 6.0 TH/MM3 6.8 TH/MM3 Red Blood Count 2.09 MIL/MM3 2.65 MIL/MM3 Hemoglobin 6.5 GM/DL 8.0 GM/DL Hematocrit 19.2 % 23.4 % Mean Corpuscular Volume 91.6 FL 88.5 FL Mean Corpuscular Hemoglobin 31.1 PG 30.3 PG Mean Corpuscular Hemoglobin Concent 34.0 % 34.3 % Red Cell Distribution Width 15.5 % 16.0 % Platelet Count 194 TH/MM3 191 TH/MM3 Mean Platelet Volume 8.1 FL 8.0 FL Neutrophils (%) (Auto) 49.4 % 58.3 % Lymphocytes (%) (Auto) 34.0 % 26.3 % Monocytes (%) (Auto) 12.4 % 11.8 % Eosinophils (%) (Auto) 3.5 % 3.0 % Basophils (%) (Auto) 0.7 % 0.6 % Neutrophils # (Auto) 2.9 TH/MM3 4.0 TH/MM3 Lymphocytes # (Auto) 2.0 TH/MM3 1.8 TH/MM3 Monocytes # (Auto) 0.7 TH/MM3 0.8 TH/MM3 Eosinophils # (Auto) 0.2 TH/MM3 0.2 TH/MM3 Basophils # (Auto) 0.0 TH/MM3 0.0 TH/MM3 CBC Comment DIFF FINAL DIFF FINAL Differential Comment Prothrombin Time 12.9 SEC Prothromb Time International Ratio 1.3 RATIO Activated Partial Thromboplast Time 23.4 SEC Blood Urea Nitrogen 28 MG/DL 23 MG/DL Creatinine 1.93 MG/DL 1.66 MG/DL Random Glucose 103 MG/DL 99 MG/DL Total Protein 10.8 GM/DL Albumin 2.5 GM/DL Calcium Level 8.6 MG/DL 8.6 MG/DL Alkaline Phosphatase 45 U/L Aspartate Amino Transf (AST/SGOT) 12 U/L Alanine Aminotransferase (ALT/SGPT) 16 U/L Total Bilirubin 0.4 MG/DL Sodium Level 140 MEQ/L 141 MEQ/L Potassium Level 3.8 MEQ/L 3.4 MEQ/L Chloride Level 109 MEQ/L 108 MEQ/L Carbon Dioxide Level 23.7 MEQ/L 24.1 MEQ/L Anion Gap 7 MEQ/L 9 MEQ/L Estimat Glomerular Filtration Rate 33 ML/MIN 39 ML/MIN Imaging Last 24 hours Impressions Chest X-Ray 12/26/17 1140 Signed Impressions: CONCLUSION: 1. Compensated cardiomegaly. 2. No acute abnormality. Objective Remarks GENERAL: This is a elderly 87 year old male patient, in no apparent distress. CARDIOVASCULAR: Regular rate and rhythm RESPIRATORY: Clear to auscultation. Breath sounds equal bilaterally. GASTROINTESTINAL: Abdomen soft, non-tender, nondistended. Normal active bowel sounds MUSCULOSKELETAL: Extremities without clubbing, cyanosis, or edema. NEURO: Alert & Oriented. Moves all ext x4 Procedures 12/27 EGD A/P Problem List: (1) Upper GI bleed ICD Codes: K92.2 - Gastrointestinal hemorrhage, unspecified Status: Acute Plan: 87-year-old male with a past medical history which includes djd,a fib, pacemaker CAD CHF,AL GERD hypertension metastatic disease bladder cancer ( follows with Dr. Gill) on [id number] q 3 week presents for evaluation of low hemoglobin level. He reports that for the past 3-4 weeks he has been having black stool. He reports that he was on iron supplements at some point about a month ago but he has not been on any iron supplements for the past 2 weeks. He reports that earlier this week he was having fatigue and shortness of breath but that is resolved. hgb on admission 6.5 -> 8.0 (12/27) received 2 units PRBCs 12/26 S/P EGD (12/27) EGD revealed: Gastric mass probable metastatic lesion Bx was taken - pathology pending Dr. Jaquez discussed EGD results with Dr. Gill and patient. Will give additional 2 units PRBCs Protonix drip- DC'd started Protonix 40 mg PO daily (2) Urothelial carcinoma of kidney ICD Codes: C64.9 - Malignant neoplasm of unspecified kidney, except renal pelvis Status: Acute Plan: metastatic to lung followed by oncology will consult Assessment and Plan Patient examined. Assessment and plan formulated with Roxanna Vogt PA-C. I agree with the above. Roxanna Vogt December 27, 2017 16:53 Woo Jaquez DO December 31, 2017 15:24
[2017-12-27] MEDS ORDERED: SODIUM CHLOR 0.9% 250 ML INJ 250 ML IV ONE (17:00)
[2017-12-27] MEDS ORDERED: POTASSIUM CHLORIDE 20 MEQ CONTROLLED RELEASE TAB PO ONE (17:00)
[2017-12-27] MEDS ORDERED: DO NOT ADM ANY ANTICOAGULANT DRUGS PRN (17:30)
[2017-12-27] MEDS ORDERED: FUROSEMIDE 20 MG/2 ML VIAL IV PUSH ONE (18:00)
[2017-12-27] MEDS ORDERED: PROPOFOL 200 MG/20 ML AMP IV ONE (18:49)
[2017-12-27] MEDS: LOSARTAN 50 MG TAB PO SCH (21:59)
[2017-12-28] VITALS (7 sets, daily range): BP systolic 140–170; BP diastolic 68–87; PULSE 59–82; RESP 17–20; TEMP 97.8–98.9; O2SAT 94–97
--- NOTE | 2017-12-28 04:27 | MB ---
cc: Markus Gill MD DATE: 12/27/2017 REASON FOR CONSULTATION: A patient with a history of bladder cancer who was sent to the emergency room after he was found to be severely anemic and complained of dark stools. HISTORY OF PRESENT ILLNESS: This is an 87-year-old male who has a diagnosis of stage IV urothelial cancer. He was originally diagnosed with bladder cancer in 2014. He had a cystoscopy. At that time, surgery was recommended. The patient then eventually saw Dr. Mcelroy. He underwent robotic-assisted laparoscopic left nephroureterostomy in March 2017. Pathology confirmed high-grade papillary urothelial cancer. Definitive detrusor muscle involvement was not present. The patient then was under observation until July 2017. He underwent a CT scan which was consistent with metastatic disease involving the left renal bed and left lower lung. He underwent a cystoscopy, which demonstrated multiple tumors involving the urinary bladder and urethra. He underwent into transurethral resection of these tumors. He was again under observation. Most recently, he underwent another cystoscopy and he was found to have recurrent disease with at least 20 tumors in his bladder. A PET scan in December of 2017 showed a 1.3 x 2.3 cm hypermetabolic nodule at the left lung base concerning for malignancy. There were scattered mildly hypermetabolic prevascular nodules in the hilar and subcarinal region. They were thought to be stable compared to a previous PET scan of 06/08/2015. There was intense uptake along the anterior wall of the bladder consistent with the patient's history of known malignancy. Due to the patient's advanced age, he was offered immunotherapy treatment with Keytruda. He was going to start this treatment next week. A port placement was ordered for him. Yesterday, he had routine lab workup done which showed a hemoglobin in the 6 range, and the patient complained of dark stools. He was sent to the emergency room. The patient has received 2 units of packed red blood cells. He is currently undergoing GI evaluation. REVIEW OF SYSTEMS: Could not be completed. PAST MEDICAL HISTORY: History of stage IV urothelial cancer, history of atrial fibrillation with pacemaker, CAD, CHF, GERD. PAST SURGICAL HISTORY: History of CABG, left ureterostomy. MEDICATIONS: Pantoprazole 40 mg p.o. daily, amlodipine 5 mg p.o. daily, iron sulfate 325 mg p.o. b.i.d., furosemide 40 mg p.o. daily, Imdur 30 mg p.o. daily, magnesium oxide 400 mg p.o. daily, carvedilol 25 mg p.o. b.i.d., losartan 100 mg p.o. at bedtime, senna/docusate p.r.n., oxycodone 5/325 one tablet p.o. q. 4 hours p.r.n., temazepam 15 mg p.o. at bedtime, milk of magnesia p.r.n., senna p.r.n., bisacodyl p.r.n., Lactulose p.r.n. ALLERGIES: HE IS ALLERGIC TO PENICILLIN G. FAMILY HISTORY: Reviewed in the chart. SOCIAL HISTORY: Unchanged. It was reviewed previously. He is a nonsmoker. He does not drink alcohol. He is . He is retired. PHYSICAL EXAMINATION: Unable to be completed. The patient is undergoing EGD and is in preop. LABORATORY DATA: WBC 6.8, hemoglobin 8 after 2 units of packed red blood cell, platelets 191. Serum chemistries: Sodium 141, potassium 3.4, chloride 108, BUN 23, creatinine is 1.66, GFR is 39, total protein is 10.8, albumin is 2.5. 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 He was sent to the emergency room after he was found to be severely anemic with a hemoglobin of 6 and was experiencing having dark stools. I had a long discussion with the patient's today. He is currently undergoing a GI evaluation. He has undergone EGD. I have reviewed the results of the EGD after my discussion with his . I discussed this case with Dr. Jaquez as well. Unfortunately, the patient is found to have a stomach mass. Biopsy has been obtained. This is concerning for metastatic disease to the stomach versus a new primary. We will await the pathology results. If the patient remains stable over the weekend, he can be discharged home. I would recommend transfusing 2 units of packed red blood cells and monitoring him for gastrointestinal bleeding over the weekend. If he remains stable, can be discharged home. I will see him next Saturday in my clinic. The patient was supposed to get a port placed today. However, this could not be completed. If the patient ends up staying in the hospital until Saturday, I would recommend obtaining a port prior to his discharge. This case was discussed with Dr. Jaquez. I also had an extensive discussion with the patient's . MD DANNY High/JAYLEN , 12:25 AM , 04:26 AM
[2017-12-28 07:44] LABS: HEMATOCRIT 31.5 % (39.0-51.0); HEMOGLOBIN 11.2 GM/DL (13.0-17.0); MEAN CELL VOLUME 88.7 FL (80.0-100.0); MEAN CORPUSCULAR HEMOGLOBIN 31.4 PG (27.0-34.0); MEAN CORPUSCULAR HGB CONC 35.4 % (32.0-36.0); MEAN PLATELET VOLUME 7.8 FL (7.0-11.0); PLATELET COUNT 191 TH/MM3 (150-450); RED BLOOD COUNT 3.55 MIL/MM3 (4.50-5.90); RED CELL DISTRIBUTION WIDTH 15.2 % (11.6-17.2); WHITE BLOOD COUNT 6.4 TH/MM3 (4.0-11.0)
[2017-12-28] MEDS ORDERED: PANTOPRAZOLE SOD 40 MG DELAYED RELEASE TAB PO SCH (09:00)
[2017-12-28] MEDS ORDERED: POTASSIUM CHLORIDE 20 MEQ CONTROLLED RELEASE TAB PO ONE (09:00)
[2017-12-28] MEDS: SODIUM CHLORIDE 0.9% FLUSH 10 ML FLUSH IV FLUSH SCH (09:00)
[2017-12-28] MEDS: amLODIPine BESYLATE 5 MG TAB PO SCH (09:51)
[2017-12-28] MEDS: FERROUS SULFATE 325 MG (65 MG ELEMENTAL IRON) TAB PO SCH ×2 (09:51→17:16)
[2017-12-28] MEDS: ISOSORBIDE MONONITRATE 30 MG CR TAB (IMDUR) PO SCH (09:51)
[2017-12-28] MEDS: MAGNESIUM OXIDE 400 MG TAB PO SCH (09:51)
[2017-12-28] MEDS: DOCUSATE SODIUM 50 MG/SENNA 8.6 MG TAB PO SCH (09:52)
[2017-12-28] MEDS: CARVEDILOL 12.5 MG TAB PO SCH (09:52)
[2017-12-28] MEDS: FUROSEMIDE 40 MG TAB PO SCH (09:52)
--- NOTE | 2017-12-28 10:25 | HHI.DCPOC ---
Discharge Care Plan Diagnosis: (1) Urothelial carcinoma of kidney (2) Anemia Goals to Promote Your Health * To prevent worsening of your condition and complications * To maintain your health at the optimal level Directions to Meet Your Goals Take your medications as prescribed Follow your dietary instruction Follow activity as directed Keep your appointments as scheduled Take your immunizations and boosters as scheduled If your symptoms worsen call your PCP, if no PCP go to Urgent Care Center or Emergency Room Smoking is Dangerous to Your Health. Avoid second hand smoke Call the 24-hour hour crisis hotline for domestic abuse at Roxanna Vogt December 28, 2017 10:25 Woo Jaquez DO December 31, 2017 15:25
--- NOTE | 2017-12-28 10:31 | HHI.DS ---
Discharge Summary Admission Date December 26, 2017 at 18:07 Discharge Date: December 28, 2017 Admitting Diagnosis Upper GI bleed, anemia (1) Upper GI bleed Diagnosis: Principal ICD Codes: K92.2 - Gastrointestinal hemorrhage, unspecified Status: Acute (2) Urothelial carcinoma of kidney Diagnosis: Secondary ICD Codes: C64.9 - Malignant neoplasm of unspecified kidney, except renal pelvis Status: Acute Consultants Dr. Gill, oncology Dr. Sanchez, GI Procedures 12/27 EGD Brief History 87-year-old male presents for evaluation of low hemoglobin level. He reports that 3 different physicians called today and told him that his hemoglobin was low. He has a paper that shows that his hemoglobin was 6.3 on December 23. He reports that for the past 3-4 weeks he has been having black stool. He reports that he was on iron supplements at some point about a month ago but he has not been on any iron supplements for the past 2 weeks. He reports that earlier this week he was having fatigue and shortness of breath but that is resolved. He currently feels fine. Denies any chest pain, abdominal pain, nausea or vomiting, hematemesis, hematochezia. He has a history of metastatic urothelial cancer, coronary artery disease, pacemaker, hypertension, hyperlipidemia. Takes a baby aspirin daily. Patient was seen by oncology low blood tests sent to er . Patient will be admitted for further evaluation. CBC/BMP: 12/28/17 0705 12/27/17 0405 Significant Findings Laboratory Tests Test 12/26/17 16:20 12/27/17 04:05 12/28/17 07:05 Red Blood Count 2.09 MIL/MM3 (4.50-5.90) 2.65 MIL/MM3 (4.50-5.90) 3.55 MIL/MM3 (4.50-5.90) Hemoglobin 6.5 GM/DL (13.0-17.0) 8.0 GM/DL (13.0-17.0) 11.2 GM/DL (13.0-17.0) Hematocrit 19.2 % (39.0-51.0) 23.4 % (39.0-51.0) 31.5 % (39.0-51.0) Monocytes (%) (Auto) 12.4 % (0.0-8.0) 11.8 % (0.0-8.0) Prothrombin Time 12.9 SEC (9.8-11.6) Activated Partial Thromboplast Time 23.4 SEC (24.3-30.1) Blood Urea Nitrogen 28 MG/DL (7-18) 23 MG/DL (7-18) Creatinine 1.93 MG/DL (0.60-1.30) 1.66 MG/DL (0.60-1.30) Total Protein 10.8 GM/DL (6.4-8.2) Albumin 2.5 GM/DL (3.4-5.0) Aspartate Amino Transf (AST/SGOT) 12 U/L (15-37) Chloride Level 109 MEQ/L (98-107) 108 MEQ/L (98-107) Estimat Glomerular Filtration Rate 33 ML/MIN (>89) 39 ML/MIN (>89) Potassium Level 3.4 MEQ/L (3.5-5.1) Imaging Last Impressions Chest X-Ray 12/26/17 1605 Signed Impressions: CONCLUSION: 1. Compensated cardiomegaly. 2. No acute abnormality. PE at Discharge GENERAL: This is a elderly 87 year old male patient, in no apparent distress. CARDIOVASCULAR: Regular rate and rhythm RESPIRATORY: Clear to auscultation. Breath sounds equal bilaterally. GASTROINTESTINAL: Abdomen soft, non-tender, nondistended. Normal active bowel sounds MUSCULOSKELETAL: Extremities without clubbing, cyanosis, or edema. NEURO: Alert & Oriented. Moves all ext x4 Hospital Course Upper GI bleed 87-year-old male with a past medical history which includes djd,a fib, pacemaker CAD CHF,MO GERD hypertension metastatic disease bladder cancer ( follows with Dr. Gill) on [id number] q 3 week presents for evaluation of low hemoglobin level. He reports that for the past 3-4 weeks he has been having black stool. He reports that he was on iron supplements at some point about a month ago but he has not been on any iron supplements for the past 2 weeks. He reports that earlier this week he was having fatigue and shortness of breath but that is resolved. hgb on admission 6.5 -> 8.0 (12/27) -> 11.2 (12/28) received 2 units PRBCs 12/26, 2 units PRBCs 12/27 S/P EGD (12/27) EGD revealed: Gastric mass probable metastatic lesion Bx was taken - pathology pending Dr. Jaquez discussed EGD results with Dr. Gill, patient and patient's . Protonix drip- DC'd Protonix 40 mg PO daily Urothelial carcinoma of kidney metastatic to lung followed by oncology Dr. Rosales consult oncology, Dr. Gill. Dr. Jaquez discussed the case with Dr. Gill (12/27 ) patient has follow up appointment with Dr. Gill Saturday (01/01) Pt Condition on Discharge: Stable Discharge Disposition: Discharge Home Discharge Instructions DIET: Follow Instructions for: Heart Healthy Diet Activities you can perform: Regular-No Restrictions Follow up Referrals: Gastroenterology - 2 Weeks with Giancarlo Sanchez MD Oncology/Hematology - 2-3 Days with Markus Gill MD PCP Follow-up - [address] Sen Continued Medications: Amlodipine (Amlodipine) 10 Mg Tab 5 MG PO DAILY for Blood Pressure Management, #30 TAB 0 Refills Aspirin (Aspirin) 81 Mg Chew 81 MG CHEW DAILY, TAB 0 Refills Carvedilol (Carvedilol) 12.5 Mg Tab 25 MG PO BID, #60 TAB 0 Refills Ferrous Sulfate (Ferrous Sulfate) 325 Mg (65 Mg Iron) Tablet 325 MG PO BIDPC for Nutritional Supplement, #60 TAB 0 Refills Furosemide (Lasix) 40 Mg Tab 40 MG PO DAILY, #30 TAB 0 Refills Isosorbide Mononitrate ER (Isosorbide Mononitrate ER) 30 Mg Steve 30 MG PO DAILY for Prevent Chest Pain, #30 TAB 0 Refills Losartan (Cozaar) 50 Mg Tab 100 MG PO HS for Blood Pressure Management, #30 TAB 0 Refills Magnesium Oxide (Magnesium Oxide) 400 Mg Tab 400 MG PO DAILY for Nutritional Supplement, TAB 0 Refills Omeprazole (Omeprazole) 20 Mg Tab 20 MG PO DAILY, #30 TAB 0 Refills Oxycodone-Acetaminophen (Percocet) 5-325 mg Tab 1 TAB PO Q4H PRN for PAIN, #30 TAB 0 Refills Simvastatin (Simvastatin) 20 Mg Tab 20 MG PO HS for Cholesterol Management, #30 TAB 0 Refills Temazepam (Restoril) 15 Mg Cap 15 MG PO HS PRN for INSOMNIA, #15 CAP Discontinued Medications: Clopidogrel (Clopidogrel) 75 Mg Tab 75 MG PO DAILY for Blood Clot Prevention, #30 TAB 0 Refills Additional Information Patient examined. Assessment and plan formulated with Roxanna Vogt PA-C. I agree with the above. Roxanna Vgot December 28, 2017 10:31 Woo Jaquez DO December 31, 2017 15:25
--- NOTE | 2017-12-28 15:20 | EKG ---
Date Performed: 12/27/2017 Time Performed: 14:06:29 PTAGE: 87 years EKG: ELECTRONIC VENTRICULAR PACEMAKER ABNORMAL RHYTHM ECG Compared to PREVIOUS TRACING , the prior tracing showed AV pacing and the current shows electronic ve ntricular pacing. PREVIOUS TRACIN10/29/2017 11.06 DOCTOR: Jared Chavez Interpretating Date/Time 12/28/2017 15:19:21
--- NOTE | 2017-12-28 15:52 | HHI.GIFU ---
Subjective Remarks Pt is resting in bed, states black stools are less, no other GI issues. Accompanied by (Desire Brenner) Objective Vitals I&O Vital Signs Date Time Temp Pulse Resp B/P (MAP) Pulse Ox O2 Delivery O2 Flow Rate FiO2 12/28/17 12:04 97 21 12/28/17 12:00 97.8 60 17 157/75 (102) 94 12/28/17 08:00 98.1 65 17 170/87 (114) 97 12/28/17 04:00 Room Air 12/28/17 04:00 97.9 82 20 140/68 (92) 97 12/28/17 01:08 98.9 79 20 166/77 96 12/28/17 00:00 Room Air 12/28/17 00:00 98.9 59 20 166/77 (106) 96 12/27/17 20:00 97.6 70 20 159/72 (101) 100 12/27/17 20:00 Room Air 12/27/17 18:22 98.0 78 16 160/78 96 12/27/17 18:13 98.2 76 16 142/66 96 12/27/17 17:41 96 21 12/27/17 16:30 75 14 147/62 (90) 96 Room Air 12/27/17 16:15 74 14 168/73 (104) 94 Room Air 12/27/17 16:00 98.1 70 18 141/66 (91) 95 12/27/17 16:00 76 12/27/17 15:58 97.6 74 14 120/70 (87) 93 Room Air I/O 12/27/17 12/27/17 12/27/17 12/28/17 12/28/17 12/28/17 07:00 15:00 23:00 07:00 15:00 23:00 Intake Total 650 ml 874 ml 477 ml Output Total 250 ml Balance 400 ml 874 ml 477 ml Packed Cells 400 ml 400 ml 400 ml Blood Product IV Normal Saline Flush 250 ml 374 ml 77 ml Other 100 ml Output Urine Total 250 ml # Voids 1 Laboratory Laboratory Tests Test 12/28/17 07:05 White Blood Count 6.4 Red Blood Count 3.55 Hemoglobin 11.2 Hematocrit 31.5 Mean Corpuscular Volume 88.7 Mean Corpuscular Hemoglobin 31.4 Mean Corpuscular Hemoglobin Concent 35.4 Red Cell Distribution Width 15.2 Platelet Count 191 Mean Platelet Volume 7.8 Imaging Last Impressions Chest X-Ray 12/26/17 1605 Signed Impressions: CONCLUSION: 1. Compensated cardiomegaly. 2. No acute abnormality. Physical Exam HEENT: normocephalic; atraumatic; no jaundice. CHEST: Chest is clear to auscultation and percussion. CARDIAC: Regular rate and rhythm with no murmur gallop or rubs. ABDOMEN: Soft, nondistended, nontender; no hepatosplenomegaly; bowel sounds are present in all four quadrants. EXTREMITIES: No clubbing, cyanosis, or edema. SKIN: Normal; no rash; no jaundice. 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 (Desire Brenner) Assessment and Plan Plan - Melena X 2 weeks/anemia- S/p EGD on 12/28/17 ---> gastric mass, bx pending. Still having black stools but less, hgb today 11.2 s/p 4 units of blood hgb was 6.3 on 12/23. He endorses few weeks of black stools. He started iron supplement about a month ago but hasn't been taking for the past 2 weeks. Takes a baby aspirin daily. He reports that earlier this week he was having fatigue and shortness of breath on exertion. Denies any chest pain, abdominal pain, nausea or vomiting, hematemesis, hematochezia. Denies previous hx of this, denies NSAIDs or alcohol intake. Never had colonoscopy before. Currently pt is doing good, no melena this morning. He is s/ p 2 units of blood, hgb today is 8, PPI - history of metastatic urothelial cancer, lungs- followed by oncology - coronary artery disease, pacemaker, hypertension, hyperlipidemia per attending Plan: - MARTY - Await bx - PPI - Monitor hh - Transfuse as needed - oncology on the case - Supportive care - Patient seen and examined by Dr. Sanchez myself and this note is written on his behalf (Desire Brenner) Physician Comments Patient seen and examined Agree with above Continue with current supportive care Monitor labs Follow-up with GI post discharge Patient stable for discharge from a GI standpoint We will sign off (Giancarlo Sanchez MD) Desire Brenner [facility] December 28, 2017 15:52 Giancarlo Sanchez MD December 28, 2017 18:46
== END 2017-12-28 18:50 | disposition home or self-care (01) ==
LOC: NEPC 14:53 → NEDA 18:07 → INTOOBSV 18:07 → NEDH 22:54 → N04B 12-27 09:40
PROVIDERS: ADMIT Hospitalist; ATTEND Hospitalist
DX: K31.7 Polyp of stomach and duodenum (principal); K29.00 Acute gastritis without bleeding; K21.9 Gastro-esophageal reflux disease without esophagitis; K92.1 Melena; D64.9 Anemia, unspecified; I25.10 Atherosclerotic heart disease of native coronary artery without angina pectoris; I11.0 Hypertensive heart disease with heart failure; I50.9 Heart failure, unspecified; E78.5 Hyperlipidemia, unspecified; I48.91 Unspecified atrial fibrillation; I25.2 Old myocardial infarction; C64.9 Malignant neoplasm of unspecified kidney, except renal pelvis; Z85.51 Personal history of malignant neoplasm of bladder; Z79.82 Long term (current) use of aspirin; Z95.0 Presence of cardiac pacemaker
CPT/HCPCS: 36430; 71045; 80048; 80053; 85025; 85027; 85610; 85730; 86850; 86900; 86901; 86920; 88305; 88312; 93005; 96361; 96365; 96366; 96375; C9113; G0378; J1940; J7050; P9016

== ENCOUNTER 2018-01-06 08:10 | Day surgery (SDC) | payer MEDICARE ==
[~2018-01-06] VITALS: Ht 162.6 cm; Wt 76.4 kg
[~2018-01-06 08:10] MED LIST changes: -CLOP75TA PO
[2018-01-06 08:28] VITALS: BP 177/109; PULSE 61; RESP 20; TEMP 97.5; O2SAT 95
[2018-01-06] MEDS ORDERED: VANCOMYCIN 1000 MG/NS 250 ML - implanted port/tunneled catheter IV SCH ×2 (08:45)
[2018-01-06] MEDS ORDERED: CHLORHEXIDINE GLUCONATE 2 % 1 PACK (2 CLOTHS) TOPICAL SCH (08:45)
[2018-01-06] MEDS ORDERED: POVIDONE IODINE 5% (ANTISEPSIS KIT) 4 APPLICATIONS EACH NARE SCH (08:45)
[2018-01-06] MEDS ORDERED: SODIUM CHLORIDE 0.9% 1000 ML IV SCH (09:00)
[2018-01-06] MEDS ORDERED: MIDAZOLAM HCL 2 MG/2 ML VIAL ONE (09:15)
[2018-01-06] MEDS ORDERED: LIDOCAINE 1%/EPINEPHrine 1:100,000 SOLN 20 ML VIAL ONE (10:08)
[2018-01-06 10:50] VITALS: BP 157/75; PULSE 75; RESP 18; TEMP 97.7; O2SAT 94
--- NOTE | 2018-01-06 10:54 | PD.RAD ---
Post Procedure Progress Note Pre Procedure Diagnosis: (1) Bladder mass Post Procedure Diagnosis: (1) Bladder mass Procedure Date: Jan 06, 2018 Supervising Radiologist: Richard Bateman JR Proceduralist/Assist: Sana Mayers, RT(R)(), Victoriano Alcazar RT(R) Anesthesia: Conscious Sedation Plan of Activity Patient to Unit: ROPU Patient Condition: Good See PACS Report for procedural detail/treatment Central Venous Access Device Procedure 1 Right Internal Jugular Infusaport Placement single lumen Sinhala: 8 Findings: port in good position and functions well. OK to use. Plan F/U with IR or a physician in 10-14 days for a site check. Jr. Fransico,Richard Gilmore MD Jan 06, 2018 10:54
[2018-01-06 11:05] VITALS: BP 173/85; PULSE 68; RESP 18; O2SAT 94
[2018-01-06 11:35] VITALS: BP 179/75; PULSE 73; RESP 18; O2SAT 96
[2018-01-06] MEDS ORDERED: SODIUM CHLORIDE 0.9% FLUSH 10 ML FLUSH IVF PRN (11:45)
[2018-01-06 12:05] VITALS: BP 172/84; PULSE 71; RESP 19; O2SAT 94
--- NOTE | 2018-01-06 13:37 | RADRPT ---
EXAM DATE: 01/06/2018 11:04 AM EDT AGE/SEX: 87 years / Male INDICATIONS: Patient with a history of stage IV urothelial cancer. CLINICAL DATA: This is the patient's initial encounter. Patient reports that signs and symptoms have been present for 2 weeks and indicates a pain score of 0/10. MEDICAL/SURGICAL HISTORY: . Blood disordersGoutHeart diseaseHTN . Coronary artery bypassNephre ctomyPacemaker COMPARISON: No prior [facility] exams available for comparison. FLUORO TIME (min): 0.37 IMAGE SERIES: 1 SEDATION TIME (min): 30 MEDICATION(S): 1mg midazolam (Versed) IV 50mcg fentanyl (Sublimaze) IV Vancomycin within 2 hrs of procedure, Ancef (or alternative) within 1 hr of procedure. DEVICE(S): Right Power port . . PROCEDURE : 1. Continuous pulse oximetry and EKG monitoring. 2. Intravenous conscious sedation. 3. Ultrasound guidance for venous access. 4. Fluoroscopic guided implantable central venous port placement. The patient was placed supine. The neck was prepped in sterile fashion. Full sterile technique was u sed, including cap, mask, sterile gloves and gown, and a large sterile sheet. Hand hygiene and 2% ch lorhexidine Betadine was utilized per protocol for cutaneous antisepsis with appropriate dry time for site. Sterile gel and sterile probe cover were utilized for ultrasound guidance. The skin and sub cutaneous tissues were infiltrated with local anesthetic solution. Under direct ultrasound guidance, central venous access was accomplished in the targeted vessel. The ultrasound images depicting access guidance were stored and saved to PACS for permanent record. A s ubcutaneous pocket was created using blunt dissection. The port was introduced to the pocket. The c atheter tubing was fed through a subcutaneous tunnel to the venotomy site. The catheter tubing was c ut to a suitable length and then was introduced through a valved Peel-Away sheath and positioned with catheter tubing tip at the cavo-atrial junction level. The pocket incision was closed with subcutic ular Vicryl suture. Steri-Strips were applied. The port was flushed and locked with heparin solutio n per protocol. Sterile dressing was applied to the site. The patient tolerated the procedure well. Conscious sedation was performed with the prescribed dosages and duration as above in the presence of an independent trained radiology nurse to assist in the monitoring of the patient. EKG and oximetry remained stable throughout the procedure. The patient tolerated the procedure well and there were no complications. The patient was sent to post anesthesia recovery in stable condition. CONCLUSION: 1. Uncomplicated ultrasound and fluoroscopic guided implanted central venous port catheter placement as described in detail above. An 8 Syrian Power port was placed. Electronically signed by: Richard Bateman MD 01/06/2018 1:35 PM EDT
== END 2018-01-06 13:00 | disposition home or self-care (01) ==
LOC: HROP 08:10 → HRIP 08:15 → HROP 13:00
PROVIDERS: ATTEND Internal Medicine
DX: C67.9 Malignant neoplasm of bladder, unspecified (principal); I10 Essential (primary) hypertension; M10.9 Gout, unspecified; Z95.0 Presence of cardiac pacemaker
CPT/HCPCS: 36561; 76937; 77001; 99152; 99153; C1788; J1642; J2250; J3010; J3370; J7030; J7050

== ENCOUNTER 2018-02-05 12:38 | Inpatient (IN) ==
--- NOTE | 2018-02-05 13:26 | ED ---
HPI General Chief Complaint: Altered Mental Status Stated Complaint: confusion/ ewrf Time Seen by Provider: 02/05/18 12:54 Limitations: altered mental status History of Present Illness HPI narrative: This patient is brought in by paramedics for altered mental status. I am told that he gets chemotherapy for bladder cancer. Patient is very drowsy/lethargic and is not able to provide any useful history or review of systems. Paramedics reported temperature of 99.6, we are getting a normal temperature here 98.3 Related Data Home Medications Medication Instructions Recorded Confirmed amlodipine 10 mg PO DAILY 02/05/18 02/05/18 aspirin [Aspir-Low] 81 mg PO DAILY MDD 81 02/05/18 02/05/18 carvedilol 25 mg PO BID 02/05/18 02/05/18 clotrimazole-betamethasone 1 applic TOPICAL BID 02/05/18 02/05/18 furosemide 40 mg PO DAILY 02/05/18 02/05/18 gabapentin 400 mg PO DAILY 02/05/18 02/05/18 isosorbide mononitrate 30 mg PO DAILY 02/05/18 02/05/18 losartan 100 mg PO DAILY 02/05/18 02/05/18 magnesium oxide 400 mg PO DAILY 02/05/18 02/05/18 omeprazole 20 mg PO DAILY 02/05/18 02/05/18 sennosides [senna] 8.6 mg PO BID PRN MDD 8.6 02/05/18 02/05/18 simvastatin 10 mg PO QPM 02/05/18 02/05/18 zolpidem 10 mg PO DAILY 02/05/18 02/05/18 Allergies Allergy/AdvReac Type Severity Reaction Status Date / Time penicillin G Allergy Severe Rash, TEMP Verified 02/05/18 12:54 & DIZZINESS Review of Systems Except as stated in HPI: all other systems reviewed are negative PMFSH Medical History Medical History FH: chemotherapy (Acute) 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 SKIN: Focused skin assessment reveals no rash and nodules. Skin is Warm and dry. HEAD: Atraumatic. Normocephalic. EYES: Pupils equal and round. No scleral icterus. No injection or drainage. ENT: No nasal bleeding or discharge. Mucous membranes pink and moist. NECK: Trachea midline. No JVD. No meningeal signs CARDIOVASCULAR: Regular rate and rhythm. No murmur appreciated. RESPIRATORY: No accessory muscle use. Clear to auscultation. Breath sounds equal bilaterally. GASTROINTESTINAL: Abdomen soft, non-tender, nondistended. Hepatic and splenic margins not palpable. MUSCULOSKELETAL: No obvious deformities. No clubbing. No cyanosis. No edema. NEUROLOGICAL: Awake but very drowsy. He follows some commands and ignores others. He does answer questions. He knows that it is February and he is in [place]. Difficult to assess motor and sensory exams, very limited participation. PSYCHIATRIC: Appropriate mood and affect; insight and judgment poor . Course Initial Documented Vital Signs Temperature 98.3 F 02/05/18 12:59 Pulse Rate 62 02/05/18 12:59 Respiratory Rate 16 02/05/18 12:59 Blood Pressure 172/78 H 02/05/18 12:59 Pulse Oximetry 97 02/05/18 12:59 Last Documented Vital Signs Temperature 98.3 F 02/05/18 13:06 Pulse Rate 62 02/05/18 14:00 Respiratory Rate 19 02/05/18 14:00 Blood Pressure 159/72 H 02/05/18 14:00 Pulse Oximetry 97 02/05/18 14:35 Critical Care Time Critical Care Time: Yes Total Critical Care Time: 36 Attestation: Aggregate critical care time was 36 minutes. Time to perform other separately billable procedures was not included in the critical care time. My time did not include minutes spent treating any other patients simultaneously or on activities that did not directly contribute to the patient's treatment. The services I provided to this patient were to treat and/or prevent clinically significant deterioration that could result in: Myocardial damage, cardiopulmonary arrest, cardiogenic shock I provided critical care services requiring my management, as noted below: Chart data review, documentation time, medication orders and management, vital sign assessments/reviewing monitor data, ordering and reviewing lab tests, ordering and interpreting/reviewing x-rays and diagnostic studies, care of the patient and discussion of the patient with the admitting physicians. NIH Stroke Scale NIH Stroke Scale Level of Consciousness: 1-Drowsy Orientation Questions: 0-Answers both correct Responds to Commands: 0-Both tasks correct Gaze Eye Movement: 0-Horizontal movement WNL Visual [place]: 0-No visual field defect Facial Movement: 0-Normal Motor Functions Arm LEFT: 0-No drift Motor Functions Arm RIGHT: 0-No drift Motor Functions Leg LEFT: 0-No drift Motor Functions Leg RIGHT: 0-No drift Limb Ataxia: 0-No ataxia Sensory Loss: 0-No sensory loss Best Language: 0-Normal Articulation: 0-Normal Extinction or Inattention Sensory: 0-Absent Total: 1 Medical Decision Making MDM Narrative Medical decision making narrative: I have ordered a mental status workup to include brain scan and urine studies and lab studies. I do not see any acute neurologic deficit that is focal but he has global lethargy and is very somnolent. I do not know what medications he takes. I am told family is on the way. Brain CT is negative for acute problem. Labs are reviewed. He has azotemia. He is mild anemia. Most notable is a troponin very elevated at 40. Review of systems he had chest pain yesterday. He did not have any today and he is currently pain-free. His EKG did not reveal acute ST elevation. CK was normal. Case reviewed in detail with personnel director Dr. tellez. He recommended reinstituting aspirin and starting some Lovenox. He would recommend no nitro given he is pain-free and holding off on beta blockade given his heart rate of 60. Patient will be hospitalized and cardiology will be consulted. I did reviewed with the [facility]. Presentation seems to be most consistent with a non-STEMI. He does have history of cardiac bypass Differential Diagnosis Differential Diagnosis: Cerebral edema, metastatic spread, hyponatremia Medical Records Medical records reviewed: Yes I reviewed the patient's medical records. He saw his oncologist in November 2017 Dr. Rosales Lab Data Result diagrams: 02/05/18 13:15 02/05/18 13:15 Lab Results 02/05/18 02/05/18 02/05/18 Range/Units 13:15 13:15 13:15 WBC 7.4 (4.0-11.0) th/mm3 RBC 3.80 L (4.50-5.90) mil/mm3 Hgb 11.4 L (13.0-17.0) gm/dL Hct 34.0 L (39.0-51.0) % MCV 89.4 (80.0-100.0) fL MCH 29.9 (27.0-34.0) pg MCHC 33.5 (32.0-36.0) % RDW 14.5 (11.6-17.2) % Plt Count 184 (150-450) th/mm3 MPV 8.7 (7.0-11.0) fL Neut % (Auto) 71.8 H (16.0-70.0) % Lymph % (Auto) 15.6 (9.0-44.0) % [place] % (Auto) 9.3 H (0.0-8.0) % Eos % (Auto) 2.5 (0.0-4.0) % Baso % (Auto) 0.8 (0.0-2.0) % Neut # (Auto) 5.3 (1.8-7.7) th/mm3 Lymph # (Auto) 1.2 (1.0-4.8) th/mm3 [place] # (Auto) 0.7 (0.0-0.9) th/mm3 Eos # (Auto) 0.2 (0.0-0.4) th/mm3 Baso # (Auto) 0.1 (0.0-0.2) th/mm3 WBC Differential . Differential Comment Auto diff final Sodium 141 (136-145) meq/L Potassium 4.0 (3.5-5.1) meq/L Chloride 105 (98-107) meq/L Carbon Dioxide 22.4 (21.0-32.0) meq/L Anion Gap 14 (5-15) meq/L BUN 68 H (7-18) mg/dL Creatinine 2.26 H (0.60-1.30) mg/dL Estimated GFR 28 L (>89) mL/min Random Glucose 133 H (74-106) mg/dL Lactic Acid 2.4 H (0.4-2.0) mmol/L Calcium 10.1 (8.5-10.1) mg/dL Total Bilirubin 0.5 (0.2-1.0) mg/dL AST 467 H (15-37) U/L ALT 372 H (12-78) U/L Alkaline Phosphatase 41 L (45-117) U/L Troponin I 40.00 H* (0.02-0.05) ng/mL Total Protein 9.4 H (6.4-8.2) g/dL Albumin 2.0 L (3.4-5.0) g/dL TSH 2.200 (0.358-3.740) uIU/mL Urine Color (Yellw/Straw) Urine Clarity (Clear) Urine pH (5.0-8.5) Ur Specific [place] (1.002-1.035) Urine Protein (Neg-Trace) mg/dL Urine Glucose (UA) (Negative) mg/dL Urine Ketones (Negative) mg/dL Urine Occult Blood (Negative) Urine Nitrate (Negative) Urine Bilirubin (Negative) Urine Urobilinogen (Less than 2) mg/dL Ur Leukocyte Esterase (Negative) Urine RBC (0-3) /hpf Urine WBC (0-5) /hpf Ur Squamous Epith Cells (0-5) /hpf Ur Transition Epith Cell (None) /hpf Urine Bacteria (None) /hpf Micro UA Comment Urine Culture Comments Urine Opiates Screen (Neg) Ur Barbiturates Screen (Neg) Ur Amphetamines Screen (Neg) U Benzodiazepines Scrn (Neg) Urine Cocaine Screen (Neg) U Cannabinoids Screen (Neg) Serum Alcohol Less than 3 (0-5) mg/dL 02/05/18 02/05/18 Range/Units 14:30 14:30 WBC (4.0-11.0) th/mm3 RBC (4.50-5.90) mil/mm3 Hgb (13.0-17.0) gm/dL Hct (39.0-51.0) % MCV (80.0-100.0) fL MCH (27.0-34.0) pg MCHC (32.0-36.0) % RDW (11.6-17.2) % Plt Count (150-450) th/mm3 MPV (7.0-11.0) fL Neut % (Auto) (16.0-70.0) % Lymph % (Auto) (9.0-44.0) % [place] % (Auto) (0.0-8.0) % Eos % (Auto) (0.0-4.0) % Baso % (Auto) (0.0-2.0) % Neut # (Auto) (1.8-7.7) th/mm3 Lymph # (Auto) (1.0-4.8) th/mm3 [place] # (Auto) (0.0-0.9) th/mm3 Eos # (Auto) (0.0-0.4) th/mm3 Baso # (Auto) (0.0-0.2) th/mm3 WBC Differential Differential Comment Sodium (136-145) meq/L Potassium (3.5-5.1) meq/L Chloride (98-107) meq/L Carbon Dioxide (21.0-32.0) meq/L Anion Gap (5-15) meq/L BUN (7-18) mg/dL Creatinine (0.60-1.30) mg/dL Estimated GFR (>89) mL/min Random Glucose (74-106) mg/dL Lactic Acid (0.4-2.0) mmol/L Calcium (8.5-10.1) mg/dL Total Bilirubin (0.2-1.0) mg/dL AST (15-37) U/L ALT (12-78) U/L Alkaline Phosphatase (45-117) U/L Troponin I (0.02-0.05) ng/mL Total Protein (6.4-8.2) g/dL Albumin (3.4-5.0) g/dL TSH (0.358-3.740) uIU/mL Urine Color Yellow (Yellw/Straw) Urine Clarity Cloudy H (Clear) Urine pH 5.0 (5.0-8.5) Ur Specific [place] 1.014 (1.002-1.035) Urine Protein 100 H (Neg-Trace) mg/dL Urine Glucose (UA) Negative (Negative) mg/dL Urine Ketones Negative (Negative) mg/dL Urine Occult Blood Large H (Negative) Urine Nitrate Negative (Negative) Urine Bilirubin Negative (Negative) Urine Urobilinogen Less than 2 (Less than 2) mg/dL Ur Leukocyte Esterase Small H (Negative) Urine RBC 1 (0-3) /hpf Urine WBC 19 H (0-5) /hpf Ur Squamous Epith Cells 1 (0-5) /hpf Ur Transition Epith Cell <1 (None) /hpf Urine Bacteria Occasional H (None) /hpf Micro UA Comment Cath-culture ind Urine Culture Comments Cath-cult indicated Urine Opiates Screen Neg (Neg) Ur Barbiturates Screen Neg (Neg) Ur Amphetamines Screen Neg (Neg) U Benzodiazepines Scrn Neg (Neg) Urine Cocaine Screen Neg (Neg) U Cannabinoids Screen Neg (Neg) Serum Alcohol (0-5) mg/dL Imaging Data Radiologist's impression: ITS Impressions Chest X-Ray 02/05/18 13:22 CONCLUSION: 1. Diminished lung volumes and probable bibasilar atelectasis. 2. Cardiomegaly and CABG. Head CT 02/05/18 13:22 CONCLUSION: 1. Cerebral atrophy. 2. No acute intracranial abnormality. Discharge Plan Discharge Disposition Patient Disposition: 30 Still Patient Discharge Condition Condition: Serious Physicians Team ED Provider: Gianluca Treadwell Primary Care Provider: UNKNOWN, Rxs /Orders / Referrals /Forms Prescriptions: No Action aspirin [Aspir-Low] 81 mg Tablet,Delayed Release (Dr/Ec) 81 mg PO DAILY MDD 81 RF: 0 amlodipine 10 mg Tablet 10 mg PO DAILY RF: 0 furosemide 40 mg Tablet 40 mg PO DAILY RF: 0 carvedilol 25 mg Tablet 25 mg PO BID RF: 0 sennosides [senna] 8.6 mg Tablet 8.6 mg PO BID MDD 8.6 PRN (Reason: Constipation) RF: 0 isosorbide mononitrate 30 mg Tablet Extended Release 24 Hr 30 mg PO DAILY RF: 0 gabapentin 400 mg Capsule 400 mg PO DAILY RF: 0 simvastatin 10 mg Tablet 10 mg PO QPM RF: 0 clotrimazole-betamethasone 1-0.05 % Cream 1 applic TOPICAL BID RF: 0 omeprazole 20 mg Capsule,Delayed Release(Dr/Ec) 20 mg PO DAILY RF: 0 zolpidem 10 mg Tablet 10 mg PO DAILY RF: 0 losartan 100 mg Tablet 100 mg PO DAILY RF: 0 magnesium oxide 400 mg Capsule 400 mg PO DAILY RF: 0 Discharge Interventions Interventions: Vital Signs Last Done: 02/05/18 14:00 Status ED Status: With Doctor
[2018-02-05 13:46] LABS: Baso # (Auto) 0.1 th/mm3 (0.0-0.2); Baso % (Auto) 0.8 % (0.0-2.0); Eos # (Auto) 0.2 th/mm3 (0.0-0.4); Eos % (Auto) 2.5 % (0.0-4.0); Hemoglobin 11.4 gm/dL (13.0-17.0); Lymph # (Auto) 1.2 th/mm3 (1.0-4.8); Lymph % (Auto) 15.6 % (9.0-44.0); Mean Corpuscular HGB Conc 33.5 % (32.0-36.0); Mean Corpuscular Hemoglobin 29.9 pg (27.0-34.0); Mean Corpuscular Volume 89.4 fL (80.0-100.0); Mean Platelet Volume 8.7 fL (7.0-11.0); Mono # (Auto) 0.7 th/mm3 (0.0-0.9); Mono % (Auto) 9.3 % (0.0-8.0); Neut # (Auto) 5.3 th/mm3 (1.8-7.7); Neut % (Auto) 71.8 % (16.0-70.0); Platelet Count 184 th/mm3 (150-450); Red Cell Distribution Width 14.5 % (11.6-17.2); White Blood Count 7.4 th/mm3 (4.0-11.0)
--- NOTE | 2018-02-05 13:55 | XR ---
EXAM DATE: 02/05/2018 1:52 PM EDT AGE/SEX: 87 years / Male INDICATIONS: Fever and shortness of breath. CLINICAL DATA: This is the patient's initial encounter. Patient reports that signs and symptoms have been present for 1 day and indicates a pain score of 5/10. MEDICAL/SURGICAL HISTORY: . Cardiovascular disease. Congestive heart failure. hypertension, pro state cancer Prostatectomy. Pacemaker. CABG. [place] [facility] [place]. . FINDINGS: A single AP view of the chest demonstrates cardiomegaly with increase in pulmonary vascularity. Dimin ished lung volumes and probable bibasilar atelectasis. Left-sided pacemaker with 2 intact leads. Stat us post CABG. Right-sided port with tip in the caval atrial junction. The cardiomediastinal contours are unremarkable. Osseous structures are intact. CONCLUSION: 1. Diminished lung volumes and probable bibasilar atelectasis. 2. Cardiomegaly and CABG. Electronically signed by: Ruddy Pepper MD 02/05/2018 1:54 PM EDT
[2018-02-05 14:07] LABS: Anion Gap 14 meq/L (5-15); Aspartate Aminotransferase 467 U/L (15-37); Blood Urea Nitrogen 68 mg/dL (7-18); Calcium 10.1 mg/dL (8.5-10.1); Carbon Dioxide 22.4 meq/L (21.0-32.0); Chloride 105 meq/L (98-107); Glomerular Filtration Rate 28 mL/min (>89); Glucose,Random 133 mg/dL (74-106); Sodium 141 meq/L (136-145)
[2018-02-05 14:08] LABS: Alanine Aminotransferase 372 U/L (12-78)
[2018-02-05 14:18] LABS: Alkaline Phosphatase 41 U/L (45-117); Total Protein 9.4 g/dL (6.4-8.2)
[2018-02-05 15:06] LABS: Amphetamine Screen,Urine Neg (Neg); Barbiturate Screen,Urine Neg (Neg); Cannabinoid Screen,Urine Neg (Neg); Cocaine Screen,Urine Neg (Neg); Opiate Screen,Urine Neg (Neg)
[2018-02-05 15:14] LABS: Bacteria,Urine Occasional /hpf; Bilirubin,Urine Negative (Negative); Clarity,Urine Cloudy (Clear); Color,Urine Yellow (Yellw/Straw); Glucose,Urine (UA) Negative (Negative); Leukocyte Esterase,Urine Small (Negative); Nitrite,Urine Negative (Negative); Specific Gravity,Urine 1.014 (1.002-1.035); Squamous Epithelial Cell,Urine 1 /hpf (0-5); Transitional Epi Cells,Urine <1 /hpf
[2018-02-05] MEDS ORDERED: Temazepam 15 MG Capsule PO PRN (15:31)
--- NOTE | 2018-02-05 16:07 | P.HPIM ---
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 s/o left nephroureterectomy. Pt follows with Dr. Markus Gill. Pt had a port placed early January. Pt is being treated with Keytruda. Pt was most recently hospitalized at [facility] 12/26 - 12/28/17 d/t GIB. Pt had EGD (12/27/17) which showed gastric mass which was felt to likely be a metastic lesion. Bx was taken. Pathology did NOT show malignancy. Pt presented to the [facility] ER 02/05/18 with c/o AMS. Pt was found to be clinically stable without particular confusion. However, pt was found to have elevated troponin of 40. Pt denies c/o chest pain or angina equivalents. Case was discussed between ER and cardiology. Pt will be admitted to [facility] for further evaluation and treatment. - Diagnosis (1) Bladder cancer Inpatient Certification: I certify that the inpatient services were ordered in accordance with Medicare regulations governing the order. This includes certification that hospital inpatient services are reasonable and necessary and in the case of services not specified as inpatient-only under 42 CFR 419.22(n), that they are appropriately provided as inpatient services in accordance to with the 2-midnight benchmark under 43 CFR 412.3(e) Estimated Total Length of Stay (Days): 3 Plans for Post Hospital Care: Not yet determined Review of Systems Constitutional: Denies anorexia, Denies body ache(s), Denies chills, Denies fever(s), Denies night sweats, Denies poor appetite Eyes: Denies blind spots, Denies blurry vision, Denies change in vision, Denies double vision, Denies discharge, Denies loss of peripheral vision, Denies loss of vision, Denies other visual disturbances, Denies pain Ears, Nose, Mouth, and Throat: Denies bleeding gums, Denies difficulty swallowing, Denies dizziness, Denies headache(s), Denies hearing loss, Denies pain with swallowing, Denies poor balance, Denies ringing in the ears, Denies sore throat, Denies throat swelling, Denies tongue swelling Cardiovascular: Denies chest pain, Denies excessive sweating, Denies fainting, Denies fast heart rate, Denies generalized swelling, Denies irregular heart rhythm, Denies leg swelling, Denies lightheadedness, Denies slow heart rate Respiratory: Denies cough, Denies shortness of breath, Denies snoring, Denies wheezing Gastrointestinal: Denies abdominal pain, Denies belching, Denies black, tarry stools, Denies bright, red blood in stools, Denies change in bowel habits, Denies change in stools, Denies coffee ground vomit, Denies constipation, Denies cramping, Denies difficulty swallowing, Denies heartburn, Denies incontinent of stools, Denies loose stools, Denies nausea, Denies pain with swallowing, Denies vomiting, Denies vomiting blood Genitourinary: Denies blood in urine, Denies difficulty urinating, Denies painful urination, Denies side pain, Denies frequent nighttime urination, Denies urinary frequency, Denies urinary hesitancy, Denies urinary incontinence , Denies urinary urgency Musculoskeletal: Denies abnormal walking, Denies back pain, Denies body aches, Denies decreased muscle mass, Denies joint pain, Denies joint swelling, Denies muscle weakness, Denies neck pain, Denies numbness, Denies stiffness, Denies tingling Skin/Breast: Denies bleeding lesions, Denies change in skin color, Denies changing lesions, Denies itching, Denies lesions, Denies new lesions, Denies non -healing lesions, Denies redness, Denies sensitivity to light, Denies rash, Denies skin pain, Denies skin swelling, Denies skin ulcer, Denies sores, Denies unusual bruising, Denies wounds, Denies yellowing of the skin Neurologic: Denies abnormal hearing, Denies abnormal movements, Denies abnormal speech, Denies abnormal walking, Denies behavioral changes, Denies burning sensations, Denies confusion, Denies dizziness, Denies fainting, Denies frequent falls, Denies headache(s), Denies lack of coordination, Denies localized weakness, Denies loss of vision, Denies memory loss, Denies numbness, Denies other visual disturbances, Denies radiating pain, Denies restless legs, Denies convulsions, Denies seizure-like activity, Denies sensory deficit, Denies tingling/numbness/burning sensations, Denies tremor(s), Denies unsteadiness, Denies weakness Psychiatric: Denies abnormal sleep pattern, Denies anxiety, Denies behavioral changes, Denies change in appetite, Denies confusion, Denies depression, Denies difficulty concentrating, Denies hearing things others do not hear, Denies irritability, Denies lack of enjoyment, Denies memory loss, Denies mood swings, Denies panic attacks, Denies paranoia, Denies seeing things others do not see, Denies thoughts of hurting/killing others, Denies thoughts of hurting/killing yourself Endocrine: Denies cold intolerance, Denies excessive sweating, Denies fatigue, Denies flushing, Denies heat intolerance, Denies increased hunger, Denies increased thirst, Denies increased urination, Denies rapid, pounding, or irregular heartbeat Hematologic/Lymphatic: Denies easy bleeding, Denies easy bruising, Denies enlarged lymph nodes Allergic/Immunologic: Denies hives, Denies lip swelling, Denies throat swelling , Denies wheezing PMFSH - History History Provided By: Patient - Medical History Medical History: Medical History (Last Updated 02/05/18 @ 16:10 by Woo Jaquez DO) FH: chemotherapy (Acute) 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 (Acute) Bladder cancer (Acute) Coronary bypass graft mechanical complication (Acute) - Tobacco History Tobacco Use In Past 30 Days: No Smoking Status: Former smoker - Travel History Recent Travel in the [place] Within the Last 8 Weeks: No Recent Travel Out of the Country Within the Last 8 Weeks: No Medications and Allergies Active Medications: Active Medications Acetaminophen (Tylenol) 650 mg PO Q4H PRN PRN Reason: Temp > 100.4 Al Hydroxide/Mg Hydroxide (Milk Of Magnesia Liq) 30 ml PO Q12H PRN PRN Reason: Mild Constipation Enoxaparin Sodium (Lovenox Inj) 30 mg SQ Q24H [place] Potassium Chloride/Sodium Chloride (Potassium Chlor 20 Meq/Nacl 0.45% Inj) 1, 000 mls @ 84 mls/hr IV.CONT .[id number] GREG[place] Ondansetron HCl (Zofran Inj) 4 mg IV.PUSH Q6H PRN PRN Reason: NAUSEA OR VOMITING Senna/Docusate Sodium (Gabby-Colace) 1 tab PO BID [place] Sodium Chloride (Ns Flush) 2 ml IV.FLUSH PRN PRN PRN Reason: FLUSH AFTER USING IV ACCESS Sodium Chloride (Ns Inj) 2 ml IV.FLUSH UNSCH PRN PRN Reason: FLUSH AFTER USING IV ACCESS Sodium Chloride (Ns Inj) 2 ml IV.FLUSH BID GREG[place]IA Temazepam (Restoril) 15 mg PO HS PRN PRN Reason: INSOMNIA Allergies Allergy/AdvReac Type Severity Reaction Status Date / Time penicillin G Allergy Severe Rash, TEMP Verified 02/05/18 12:54 & DIZZINESS Home Medications Medication Instructions Recorded Confirmed Type amlodipine 10 mg PO DAILY 02/05/18 02/05/18 History aspirin [Aspir-Low] 81 mg PO DAILY MDD 81 02/05/18 02/05/18 History carvedilol 25 mg PO BID 02/05/18 02/05/18 History clotrimazole-betamethasone 1 applic TOPICAL BID 02/05/18 02/05/18 History furosemide 40 mg PO DAILY 02/05/18 02/05/18 History gabapentin 400 mg PO DAILY 02/05/18 02/05/18 History isosorbide mononitrate 30 mg PO DAILY 02/05/18 02/05/18 History losartan 100 mg PO DAILY 02/05/18 02/05/18 History magnesium oxide 400 mg PO DAILY 02/05/18 02/05/18 History omeprazole 20 mg PO DAILY 02/05/18 02/05/18 History sennosides [senna] 8.6 mg PO BID PRN MDD 8.6 02/05/18 02/05/18 History simvastatin 10 mg PO QPM 02/05/18 02/05/18 History zolpidem 10 mg PO DAILY 02/05/18 02/05/18 History Exam Vital signs: Vital Signs 02/05/18 12:59 02/05/18 13:06 02/05/18 14:00 Temperature 98.3 F 98.3 F Pulse Rate 62 62 62 Respiratory Rate 16 17 19 Blood Pressure 172/78 H 162/72 H 159/72 H Pulse Oximetry 97 96 98 02/05/18 14:35 Temperature Pulse Rate Respiratory Rate Blood Pressure Pulse Oximetry 97 Intake & Output 02/04/18 02/05/18 02/05/18 18:59 06:59 18:59 Weight 78 kg Narrative: GENERAL: This is a well-nourished, well-developed patient, in no apparent distress. CARDIOVASCULAR: Regular rate and rhythm without murmurs, gallops, or rubs. RESPIRATORY: Clear to auscultation. Breath sounds equal bilaterally. No wheezes , rales, or rhonchi. GASTROINTESTINAL: Abdomen soft, non-tender, nondistended. Normal active bowel sounds MUSCULOSKELETAL: Extremities without clubbing, cyanosis, or edema. NEURO: Alert & Oriented x4 to person, place, time, situation. Moves all ext x4 Results - Labs CBC & Chem 7: 02/07/18 04:55 02/07/18 04:55 Labs: Short CBC 02/05/18 Range/Units 13:15 WBC 7.4 (4.0-11.0) th/mm3 Hgb 11.4 L (13.0-17.0) gm/dL Hct 34.0 L (39.0-51.0) % Plt Count 184 (150-450) th/mm3 BMP 02/05/18 13:15 Sodium 141 Potassium 4.0 Chloride 105 Carbon Dioxide 22.4 BUN 68 H Creatinine 2.26 H Calcium 10.1 Cardiac Enzymes 02/05/18 Range/Units 13:15 Troponin I 40.00 H* (0.02-0.05) ng/mL Liver Function 02/05/18 Range/Units 13:15 Total Bilirubin 0.5 (0.2-1.0) mg/dL AST 467 H (15-37) U/L ALT 372 H (12-78) U/L Alkaline Phosphatase 41 L (45-117) U/L Albumin 2.0 L (3.4-5.0) g/dL Urine 02/05/18 Range/Units 14:30 Urine Color Yellow (Yellw/Straw) Urine Clarity Cloudy H (Clear) Urine pH 5.0 (5.0-8.5) Ur Specific [place] 1.014 (1.002-1.035) Urine Protein 100 H (Neg-Trace) mg/dL Urine Glucose (UA) Negative (Negative) mg/dL - Imaging Impressions Chest X-Ray 02/05/18 13:22 CONCLUSION: 1. Diminished lung volumes and probable bibasilar atelectasis. 2. Cardiomegaly and CABG. Head CT 02/05/18 13:22 CONCLUSION: 1. Cerebral atrophy. 2. No acute intracranial abnormality. Caprini VTE Risk Assessment Caprini VTE Risk Assessment: Moderate/High Risk (score >= 2) Caprini Risk Assessment Model: Point Value = 1 Point Value = 2 Point Value = 3 Point Value = 5 Age 41-60 Minor surgery BMI > 25 kg/m2 Swollen legs Varicose veins or History of unexplained or recurrent spontaneous Oral contraceptives or hormone replacement Sepsis (< 1 month) Serious lung disease, including pneumonia (< 1 month) Abnormal pulmonary function Acute myocardial infarction Congestive heart failure (< 1 month) History of inflammatory bowel disease Medical patient at bed rest Age 61-74 Arthroscopic surgery Major open surgery (> 45 min) Laparoscopic surgery (> 45 min) Malignancy Confined to bed (> 72 hours) Immobilizing plaster cast Central venous access Age >= 75 History of VTE Family history of VTE Factor V Leiden Prothrombin [id number] Lupus anticoagulant Anticardiolipin antibodies Elevated serum homocysteine Heparin-induced thrombocytopenia Other congenital or acquired thrombophilia Stroke (< 1 month) Elective arthroplasty Hip, pelvis, or leg fracture Acute spinal cord injury (< 1 month) Prophylaxis Regimen: Total Risk Factor Score Risk Level Prophylaxis Regimen 0-1 Low Early ambulation 2 Moderate Order ONE of the following: *Sequential Compression Device (SCD) *Heparin 5000 units SQ BID 3-4 Higher Order ONE of the following medications: *Heparin 5000 units SQ TID *Enoxaparin/Lovenox 40 mg SQ daily (WT < 150 kg, CrCl > 30 mL/min) *Enoxaparin/Lovenox 30 mg SQ daily (WT < 150 kg, CrCl > 10-29 mL/min) *Enoxaparin/Lovenox 30 mg SQ BID (WT < 150 kg, CrCl > 30 mL/min) AND/OR *Sequential Compression Device (SCD) 5 or more Highest Order ONE of the following medications: *Heparin 5000 units SQ TID (Preferred with Epidurals) *Enoxaparin/Lovenox 40 mg SQ daily (WT < 150 kg, CrCl > 30 mL/min) *Enoxaparin/Lovenox 30 mg SQ daily (WT < 150 kg, CrCl > 10-29 mL/min) *Enoxaparin/Lovenox 30 mg SQ BID (WT < 150 kg, CrCl > 30 mL/min) AND *Sequential Compression Device (SCD) Assessment and Plan - Assessment (1) Bladder cancer Code(s): C67.9 - Malignant neoplasm of bladder, unspecified Status: Acute Plan: PAST MEDICAL HISTORY: Blood Disorders Gout Heart Disease Hypertension Preferred Language for Healthcare Information (Upper Sorbian) PAST SURGICAL HISTORY: Coronary artery bypass Nephrectomy Pacemaker placement 1. NSTEMI - Cardiology aware - telemetry - obtain serial cardiac enzymes - obtain serial EKGs - ASA - plavix, isosorbide, simvastatin - prn NTG 2. AMS - CT brain (02/05/18). - no acute findings - IVS - observe - follow urine culture 3. HTN,essential, chronic - stable - continue norvasc, coreg, losartan 4. 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 Aparicio - pt is receiving chemotherapy per Oncology
[2018-02-05] MEDS: Enoxaparin Inj 30 MG/0.3 ML Syringe SQ SCH (16:36)
[2018-02-05] MEDS: Acetaminophen 325 MG Tablet PO PRN (16:36)
[2018-02-05] MEDS: KCL 20 mEq/NACL 0.45% Inj 1,000 ML IV.CONT SCH (17:19)
[2018-02-05] MEDS ORDERED: Levofloxacin 500 mg Premix Inj 500 MG/100 ML PIGGYBACK IV.SIG SCH (20:00)
[2018-02-05 21:02] LABS: Creatine Kinase 5198 U/L (39-308)
[2018-02-05 21:14] LABS: Creatine Kinase MB 106.4 ng/mL (0.5-3.6)
[2018-02-05] MEDS: Gabapentin 400 MG Capsule PO SCH (21:14)
[2018-02-05] MEDS: Carvedilol 12.5 MG Tablet PO SCH (21:16)
[2018-02-05] MEDS ORDERED: Zolpidem Tartrate 5 MG Tablet PO PRN (23:58)
[2018-02-06] MEDS: Senna/Docusate Sodium 8.6/50 MG Tablet PO SCH ×3 (00:17→21:06)
[2018-02-06 04:38] LABS: Baso % (Auto) 0.3 % (0.0-2.0); Eos # (Auto) 0.1 th/mm3 (0.0-0.4); Eos % (Auto) 1.4 % (0.0-4.0); Hematocrit 31.9 % (39.0-51.0); Hemoglobin 10.7 gm/dL (13.0-17.0); Lymph % (Auto) 13.6 % (9.0-44.0); Mean Corpuscular HGB Conc 33.5 % (32.0-36.0); Mean Corpuscular Hemoglobin 30.3 pg (27.0-34.0); Mean Corpuscular Volume 90.4 fL (80.0-100.0); Mean Platelet Volume 8.4 fL (7.0-11.0); Mono # (Auto) 0.7 th/mm3 (0.0-0.9); Mono % (Auto) 9.5 % (0.0-8.0); Neut # (Auto) 5.5 th/mm3 (1.8-7.7); Neut % (Auto) 75.2 % (16.0-70.0); Platelet Count 171 th/mm3 (150-450); Red Blood Count 3.53 mil/mm3 (4.50-5.90); Red Cell Distribution Width 14.9 % (11.6-17.2); White Blood Count 7.3 th/mm3 (4.0-11.0)
[2018-02-06 04:58] LABS: Calcium 10.2 mg/dL (8.5-10.1); Carbon Dioxide 20.9 meq/L (21.0-32.0); Magnesium 2.3 mg/dL (1.5-2.5); Potassium 4.3 meq/L (3.5-5.1)
--- NOTE | 2018-02-06 07:46 | P.CONCA ---
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 Patient is currently very lethargic and does not contribute much to history. He is unsure if his chronic dyspnea has changed at all from baseline. He complains of pain all over including his chest. Family at bedside states that they brought him to the hospital because he is too sleepy to open his eyes. They also report that he has not been eating much lately. His labs showed signs of dehydration and a troponin of 40. EKG with paced rhythm, no significant changes from previous EKG from our office 10/2017. 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 (Acute) Bladder cancer (Acute) Coronary bypass graft mechanical complication (Acute) A-fib CKD (chronic kidney disease) stage 3, GFR 30-59 ml/min Cardiomyopathy Chronic systolic CHF (congestive heart failure) Pacemaker - Tobacco History Tobacco Use In Past 30 Days: No Smoking Status: Former smoker - Alcohol History How Often Do You Have a Drink Containing Alcohol: Monthly or less - Substance Use History Substance History: No History of Abuse - Travel History Recent Travel in the [place] Within the Last 8 Weeks: No Recent Travel Out of the Country Within the Last 8 Weeks: No - Immunization History Tetanus Immunization: Unsure Hx Influenza Vaccine This Season: Yes Medications and Allergies Allergies Allergy/AdvReac Type Severity Reaction Status Date / Time penicillin G Allergy Severe Rash, TEMP Verified 02/05/18 12:54 & DIZZINESS Home Medications Medication Instructions Recorded Confirmed Type amlodipine 10 mg PO DAILY 02/05/18 02/05/18 History aspirin [Aspir-Low] 81 mg PO DAILY MDD 81 02/05/18 02/05/18 History carvedilol 25 mg PO BID 02/05/18 02/05/18 History clotrimazole-betamethasone 1 applic TOPICAL BID 02/05/18 02/05/18 History furosemide 40 mg PO DAILY 02/05/18 02/05/18 History gabapentin 400 mg PO DAILY 02/05/18 02/05/18 History isosorbide mononitrate 30 mg PO DAILY 02/05/18 02/05/18 History losartan 100 mg PO DAILY 02/05/18 02/05/18 History magnesium oxide 400 mg PO DAILY 02/05/18 02/05/18 History omeprazole 20 mg PO DAILY 02/05/18 02/05/18 History sennosides [senna] 8.6 mg PO BID PRN MDD 8.6 02/05/18 02/05/18 History simvastatin 10 mg PO QPM 02/05/18 02/05/18 History zolpidem 10 mg PO DAILY 02/05/18 02/05/18 History Active Medications: Active Medications Acetaminophen (Tylenol) 650 mg PO Q4H PRN PRN Reason: Temp > 100.4 Last Admin: 02/05/18 16:36 Dose: 650 mg Al Hydroxide/Mg Hydroxide (Milk Of [employer] Liq) 30 ml PO Q12H PRN PRN Reason: Mild Constipation Amlodipine Besylate (Norvasc) 10 mg PO DAILY COUNTS INCLUDE 234 BEDS AT [facility] Betamethasone/Clotrimazole (Lotrisone Cream) 1 applicatio TOPICAL BID COUNTS INCLUDE 234 BEDS AT THE [facility] Last Admin: 02/06/18 00:17 Dose: Not Given Carvedilol (Coreg) 25 mg PO BID COUNTS INCLUDE 234 BEDS AT [facility] Last Admin: 02/05/18 21:16 Dose: 25 mg Clonidine HCl (Catapres) 0.2 mg PO Q6H PRN PRN Reason: sbp above 160 Enoxaparin Sodium (Lovenox Inj) 30 mg SQ Q24H COUNTS INCLUDE 234 BEDS AT [facility] Last Admin: 02/05/18 16:36 Dose: 30 mg Gabapentin (Neurontin) 400 mg PO DAILY COUNTS INCLUDE 234 BEDS AT [facility] Last Admin: 02/05/18 21:14 Dose: 400 mg Potassium Chloride/Sodium Chloride (Potassium Chlor 20 Meq/Nacl 0.45% Inj) 1, 000 mls @ 84 mls/hr IV.CONT .[id number] COUNTS INCLUDE 234 BEDS AT [facility] Last Admin: 02/05/18 17:19 Dose: 84 mls/hr Levofloxacin/Dextrose (Levaquin 500 Mg Premix Inj) 500 mg in 100 mls @ 100 mls/ hr IV.SIG Q24H COUNTS INCLUDE 234 BEDS AT [facility] Last Admin: 02/05/18 21:15 Dose: 100 mls/hr Isosorbide Mononitrate (Imdur) 30 mg PO DAILY COUNTS INCLUDE 234 BEDS AT [facility] Losartan Potassium (Cozaar) 100 mg PO DAILY COUNTS INCLUDE 234 BEDS AT [facility] Magnesium Oxide (Mag-Ox) 400 mg PO DAILY@1100 COUNTS INCLUDE 234 BEDS AT THE [facility] Ondansetron HCl (Zofran Inj) 4 mg IV.PUSH Q6H PRN PRN Reason: NAUSEA OR VOMITING Pantoprazole Sodium (Protonix) 20 mg PO DAILY COUNTS INCLUDE 234 BEDS AT [facility] Pravastatin Sodium (Pravachol) 20 mg PO QPM COUNTS INCLUDE 234 BEDS AT [facility] Last Admin: 02/05/18 21:14 Dose: 20 mg Senna/Docusate Sodium (Gabby-Colace) 1 tab PO BID COUNTS INCLUDE 234 BEDS AT [facility] Last Admin: 02/06/18 00:17 Dose: Not Given Sennosides (Senokot) 8.6 mg PO BID PRN PRN Reason: MODERATE CONSTIPATION Sodium Chloride (Ns Flush) 2 ml IV.FLUSH PRN PRN PRN Reason: FLUSH AFTER USING IV ACCESS Sodium Chloride (Ns Inj) 2 ml IV.FLUSH UNSCH PRN PRN Reason: FLUSH AFTER USING IV ACCESS Sodium Chloride (Ns Inj) 2 ml IV.FLUSH BID COUNTS INCLUDE 234 BEDS AT [facility] Last Admin: 02/05/18 21:17 Dose: 2 ml Temazepam (Restoril) 15 mg PO HS PRN PRN Reason: INSOMNIA Last Admin: 02/06/18 00:11 Dose: 15 mg Tramadol HCl (Ultram) 50 mg PO Q6H PRN PRN Reason: PAIN SCALE 1 TO 10 Last Admin: 02/06/18 06:27 Dose: 50 mg Exam Vital signs: Vital Signs 02/05/18 12:59 02/05/18 13:06 02/05/18 14:00 Temperature 98.3 F 98.3 F Pulse Rate 62 62 62 Respiratory Rate 16 17 19 Blood Pressure 172/78 H 162/72 H 159/72 H Pulse Oximetry 97 96 98 02/05/18 14:35 02/05/18 15:00 02/05/18 15:30 Temperature Pulse Rate 64 62 Respiratory Rate 21 19 Blood Pressure 175/78 H Pulse Oximetry 97 96 02/05/18 18:32 02/05/18 18:41 02/05/18 20:00 Temperature 98.4 F Pulse Rate 66 67 63 Respiratory Rate Blood Pressure 154/77 H Pulse Oximetry 95 94 L 02/05/18 20:10 02/05/18 23:00 02/06/18 03:00 Temperature 97.9 F 98.5 F Pulse Rate 63 67 58 L Respiratory Rate 18 18 16 Blood Pressure 164/77 H 172/74 H 130/61 Pulse Oximetry 94 L 92 L 92 L 02/06/18 04:00 Temperature 98.5 F Pulse Rate 58 L Respiratory Rate 16 Blood Pressure 130/61 Pulse Oximetry 92 L Intake & Output 02/05/18 02/06/18 02/06/18 18:59 06:59 18:59 Intake Total 480 / 480 Output Total 1175 / 1175 Balance -695 / -695 Weight 171 lb 15.369 oz Intake: Oral 480 / 480 Output: Urine Amount (Catheter) 1175 / 1175 Indwelling Urethral Catheter 1175 / 1175 Other: # Bowel Movements 0 Weight On Admission 164 lb 3.91 oz Narrative: GENERAL: Well-developed well-nourished. In no acute distress. NECK: No carotid bruits. No JVD. CARDIOVASCULAR: Regular rate and rhythm. No murmur appreciated. RESPIRATORY: No accessory muscle use. Clear to auscultation. Breath sounds equal bilaterally. MUSCULOSKELETAL: No clubbing or cyanosis. No edema. NEUROLOGICAL: Somnolent. Normal speech. Results 02/06/18 04:07 02/06/18 04:07 Cardiac Enzymes 02/05/18 02/05/18 Range/Units 13:15 16:50 AST 467 H (15-37) U/L CK-MB (CK-2) 106.4 H (0.5-3.6) ng/mL Troponin I 40.00 H* Greater than 40.00 H* (0.02-0.05) ng/mL CBC 02/05/18 02/06/18 Range/Units 13:15 04:07 WBC 7.4 7.3 (4.0-11.0) th/mm3 RBC 3.80 L 3.53 L (4.50-5.90) mil/mm3 Hgb 11.4 L 10.7 L (13.0-17.0) gm/dL Hct 34.0 L 31.9 L (39.0-51.0) % Plt Count 184 171 (150-450) th/mm3 Neut # (Auto) 5.3 5.5 (1.8-7.7) th/mm3 Lymph # (Auto) 1.2 1.0 (1.0-4.8) th/mm3 Luna # (Auto) 0.7 0.7 (0.0-0.9) th/mm3 Eos # (Auto) 0.2 0.1 (0.0-0.4) th/mm3 Baso # (Auto) 0.1 0.0 (0.0-0.2) th/mm3 Comprehensive Metabolic Panel 02/05/18 02/06/18 Range/Units 13:15 04:07 Sodium 141 141 (136-145) meq/L Potassium 4.0 4.3 (3.5-5.1) meq/L Chloride 105 106 (98-107) meq/L Carbon Dioxide 22.4 20.9 L (21.0-32.0) meq/L BUN 68 H 64 H (7-18) mg/dL Creatinine 2.26 H 1.91 H (0.60-1.30) mg/dL Calcium 10.1 10.2 H (8.5-10.1) mg/dL AST 467 H (15-37) U/L ALT 372 H (12-78) U/L Alkaline Phosphatase 41 L (45-117) U/L Total Protein 9.4 H (6.4-8.2) g/dL Albumin 2.0 L (3.4-5.0) g/dL Intake and Output 02/05/18 02/06/18 02/06/18 22:59 06:59 14:59 Intake Total 480 / 480 Output Total 1175 / 1175 Balance -695 / -695 Intake: Oral 480 / 480 Output: Urine Amount (Catheter) 1175 / 1175 Indwelling Urethral Catheter 1175 / 1175 Other: # Bowel Movements 0 Weight On Admission 164 lb 3.91 oz Assessment and Plan - Plan 87-year-old male with a past medical history of CAD with CABG 2005, paroxysmal atrial fibrillation/flutter, 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 Patient is currently very lethargic and does not contribute much to history. He is unsure if his chronic dyspnea has changed at all from baseline. He complains of pain all over including his chest. Family at bedside states that they brought him to the hospital because he is too sleepy to open his eyes. They also report that he has not been eating much lately. His labs showed signs of dehydration and a troponin of 40. EKG with paced rhythm, no significant changes from previous EKG from our office 10/2017. Elevated troponin: Presentation is not really typical for NSTEMI. Check echo. Chronic systolic CHF: Clinically presented dry and is appearing more euvolemic today. Diuretics have been held. Cardiomyopathy: Continue carvedilol and losartan as BP allows. Altered mental status: Unclear etiology. Management per primary team. Discussed Condition With: Patient with family member at bedside, Dr. Emmanuel <Giacomo Emmanuel - Last Filed: 02/06/18 12:00> History of Present Illness Primary Care Provider: UNKNOWN [facility] - Medical History Medical History: Medical History (Last Updated 02/06/18 @ 07:40 by CHARMAINE Richardson) FH: chemotherapy (Acute) 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 (Acute) Bladder cancer (Acute) Coronary bypass graft mechanical complication (Acute) A-fib CKD (chronic kidney disease) stage 3, GFR 30-59 ml/min Cardiomyopathy Chronic systolic CHF (congestive heart failure) Pacemaker Medications and Allergies Active Medications: Active Medications Acetaminophen (Tylenol) 650 mg PO Q4H PRN PRN Reason: Temp > 100.4 Last Admin: 02/05/18 16:36 Dose: 650 mg Al Hydroxide/Mg Hydroxide (Milk Of [employer] Liq) 30 ml PO Q12H PRN PRN Reason: Mild Constipation Amlodipine Besylate (Norvasc) 10 mg PO DAILY COUNTS INCLUDE 234 BEDS AT [facility] Betamethasone/Clotrimazole (Lotrisone Cream) 1 applicatio TOPICAL BID COUNTS INCLUDE 234 BEDS AT [facility] Last Admin: 02/06/18 00:17 Dose: Not Given Carvedilol (Coreg) 25 mg PO BID COUNTS INCLUDE 234 BEDS AT [facility] Last Admin: 02/05/18 21:16 Dose: 25 mg Clonidine HCl (Catapres) 0.2 mg PO Q6H PRN PRN Reason: sbp above 160 Enoxaparin Sodium (Lovenox Inj) 30 mg SQ Q24H COUNTS INCLUDE 234 BEDS AT [facility] Last Admin: 02/05/18 16:36 Dose: 30 mg Gabapentin (Neurontin) 400 mg PO DAILY COUNTS INCLUDE 234 BEDS AT [facility] Last Admin: 02/05/18 21:14 Dose: 400 mg Potassium Chloride/Sodium Chloride (Potassium Chlor 20 Meq/Nacl 0.45% Inj) 1, 000 mls @ 84 mls/hr IV.CONT .[id number] COUNTS INCLUDE 234 BEDS AT [facility] Last Infusion: 02/06/18 07:39 Dose: Infused Levofloxacin/Dextrose (Levaquin 500 Mg Premix Inj) 500 mg in 100 mls @ 100 mls/ hr IV.SIG Q24H COUNTS INCLUDE 234 BEDS AT [facility] Last Infusion: 02/05/18 22:15 Dose: Infused Isosorbide Mononitrate (Imdur) 30 mg PO DAILY COUNTS INCLUDE 234 BEDS AT [facility] Losartan Potassium (Cozaar) 100 mg PO DAILY COUNTS INCLUDE 234 BEDS AT [facility] Magnesium Oxide (Mag-Ox) 400 mg PO DAILY@1100 COUNTS INCLUDE 234 BEDS AT [facility] Ondansetron HCl (Zofran Inj) 4 mg IV.PUSH Q6H PRN PRN Reason: NAUSEA OR VOMITING Pantoprazole Sodium (Protonix) 20 mg PO DAILY COUNTS INCLUDE 234 BEDS AT [facility] Pravastatin Sodium (Pravachol) 20 mg PO QPM COUNTS INCLUDE 234 BEDS AT [facility] Last Admin: 02/05/18 21:14 Dose: 20 mg Senna/Docusate Sodium (Gabby-Colace) 1 tab PO BID COUNTS INCLUDE 234 BEDS AT [facility] Last Admin: 02/06/18 00:17 Dose: Not Given Sennosides (Senokot) 8.6 mg PO BID PRN PRN Reason: MODERATE CONSTIPATION Sodium Chloride (Ns Flush) 2 ml IV.FLUSH PRN PRN PRN Reason: FLUSH AFTER USING IV ACCESS Sodium Chloride (Ns Inj) 2 ml IV.FLUSH UNSCH PRN PRN Reason: FLUSH AFTER USING IV ACCESS Sodium Chloride (Ns Inj) 2 ml IV.FLUSH BID COUNTS INCLUDE 234 BEDS AT [facility] Last Admin: 02/05/18 21:17 Dose: 2 ml Temazepam (Restoril) 15 mg PO HS PRN PRN Reason: INSOMNIA Last Admin: 02/06/18 00:11 Dose: 15 mg Tramadol HCl (Ultram) 50 mg PO Q6H PRN PRN Reason: PAIN SCALE 1 TO 10 Last Admin: 02/06/18 06:27 Dose: 50 mg Exam Vital signs: Vital Signs 02/05/18 12:59 02/05/18 13:06 02/05/18 14:00 Temperature 98.3 F 98.3 F Pulse Rate 62 62 62 Respiratory Rate 16 17 19 Blood Pressure 172/78 H 162/72 H 159/72 H Pulse Oximetry 97 96 98 02/05/18 14:35 02/05/18 15:00 02/05/18 15:30 Temperature Pulse Rate 64 62 Respiratory Rate 21 19 Blood Pressure 175/78 H Pulse Oximetry 97 96 02/05/18 18:32 02/05/18 18:41 02/05/18 20:00 Temperature 98.4 F Pulse Rate 66 67 63 Respiratory Rate Blood Pressure 154/77 H Pulse Oximetry 95 94 L 02/05/18 20:10 02/05/18 23:00 02/06/18 03:00 Temperature 97.9 F 98.5 F Pulse Rate 63 67 58 L Respiratory Rate 18 18 16 Blood Pressure 164/77 H 172/74 H 130/61 Pulse Oximetry 94 L 92 L 92 L 02/06/18 04:00 02/06/18 08:27 02/06/18 09:00 Temperature 98.5 F Pulse Rate 58 L 60 Respiratory Rate 16 Blood Pressure 130/61 Pulse Oximetry 92 L 97 Intake & Output 02/05/18 02/06/18 02/06/18 18:59 06:59 18:59 Intake Total 580 / 580 1000 / 1000 Output Total 1175 / 1175 Balance -595 / -595 1000 / 1000 Weight 78 kg Intake: IV 100 / 100 1000 / 1000 Potassium Chlor 20 mEq/NACL 0. 1000 / 1000 45% Inj 1,000 ML @ 84 mls/hr IV .CONT .[id number] [facility] Rx#:[id number] Levaquin 500 mg Premix Inj 500 100 / 100 mg In 100 ml @ 100 mls/hr IV. SIG Q24H [facility] Rx#:[id number] Oral 480 / 480 Output: Urine Amount (Catheter) 1175 / 1175 Indwelling Urethral Catheter 1175 / 1175 Other: # Bowel Movements 0 Weight On Admission 74.5 kg Results 02/06/18 04:07 02/06/18 04:07 Cardiac Enzymes 02/05/18 02/05/18 Range/Units 13:15 16:50 AST 467 H (15-37) U/L CK-MB (CK-2) 106.4 H (0.5-3.6) ng/mL Troponin I 40.00 H* Greater than 40.00 H* (0.02-0.05) ng/mL CBC 02/05/18 02/06/18 Range/Units 13:15 04:07 WBC 7.4 7.3 (4.0-11.0) th/mm3 RBC 3.80 L 3.53 L (4.50-5.90) mil/mm3 Hgb 11.4 L 10.7 L (13.0-17.0) gm/dL Hct 34.0 L 31.9 L (39.0-51.0) % Plt Count 184 171 (150-450) th/mm3 Neut # (Auto) 5.3 5.5 (1.8-7.7) th/mm3 Lymph # (Auto) 1.2 1.0 (1.0-4.8) th/mm3 Luna # (Auto) 0.7 0.7 (0.0-0.9) th/mm3 Eos # (Auto) 0.2 0.1 (0.0-0.4) th/mm3 Baso # (Auto) 0.1 0.0 (0.0-0.2) th/mm3 Comprehensive Metabolic Panel 02/05/18 02/06/18 Range/Units 13:15 04:07 Sodium 141 141 (136-145) meq/L Potassium 4.0 4.3 (3.5-5.1) meq/L Chloride 105 106 (98-107) meq/L Carbon Dioxide 22.4 20.9 L (21.0-32.0) meq/L BUN 68 H 64 H (7-18) mg/dL Creatinine 2.26 H 1.91 H (0.60-1.30) mg/dL Calcium 10.1 10.2 H (8.5-10.1) mg/dL AST 467 H (15-37) U/L ALT 372 H (12-78) U/L Alkaline Phosphatase 41 L (45-117) U/L Total Protein 9.4 H (6.4-8.2) g/dL Albumin 2.0 L (3.4-5.0) g/dL Intake and Output 02/05/18 02/06/18 02/06/18 22:59 06:59 14:59 Intake Total 100 / 100 480 / 480 1000 / 1000 Output Total 1175 / 1175 Balance 100 / 100 -695 / -695 1000 / 1000 Intake: IV 100 / 100 1000 / 1000 Potassium Chlor 20 mEq/NACL 0. 1000 / 1000 45% Inj 1,000 ML @ 84 mls/hr IV .CONT .[id number] [facility] Rx#:[id number] Levaquin 500 mg Premix Inj 500 100 / 100 mg In 100 ml @ 100 mls/hr IV. SIG Q24H [facility] Rx#:[id number] Oral 480 / 480 Output: Urine Amount (Catheter) 1175 / 1175 Indwelling Urethral Catheter 1175 / 1175 Other: # Bowel Movements 0 Weight On Admission 74.5 kg Assessment and Plan - Attending Attestation acute mental status changes unclear troponin elevation no CP no EKG changes echo pending plan is likely for medical mgt only from cardiac perspective
[2018-02-06] MEDS: amLODIPine 10 MG Tablet PO SCH (11:01)
[2018-02-06] MEDS: Isosorbide Mononitrate 30 MG ER 24HR Tablet (Imdur) PO SCH (11:01)
[2018-02-06] MEDS: Carvedilol 12.5 MG Tablet PO SCH ×2 (11:02→21:05)
[2018-02-06] MEDS: Gabapentin 400 MG Capsule PO SCH (11:02)
[2018-02-06] MEDS: Magnesium Oxide 400 MG Tablet PO SCH (12:06)
--- NOTE | 2018-02-06 14:03 | ECHRPT ---
Indication: CONCLUSIONS Mildly dilated left ventricle. Mild concentric left ventricular hypertrophy. The left ventricular systolic function is vzoenior-pq-mucjaxl reduced with an estimated ejection fra ction in the range of 35-40%. There is global left ventricular dysfunction. There is abnormal septal motion consistent with an intraventricular conduction delay. Mitral annular calcification is present. Rkjy-ix-udbquxsq mitral valve regurgitation. Aortic valve sclerosis is present. Trace aortic valve regurgitation. The estimated pulmonary arterial pressure is 37 mmHg. There is trace tricuspid valve regurgitation. Mild pulmonary valve regurgitation. BP: / HR: Rhythm: MEASUREMENTS (Male / Female) Normal Values Technical Quality: 2D ECHO LV Diastolic Diameter PLAX 4.9 cm 4.2 - 5.9 / 3.9 - 5.3 cm IVS Diastolic Thickness 1.5 cm 0.6 - 1.0 / 0.6 - 0.9 cm LVPW Diastolic Thickness 0.8 cm 0.6 - 1.0 / 0.6 - 0.9 cm LV Relative Wall Thickness 0.5 RV Internal Dim ED PLAX 3.9 cm LA Systolic Diameter LX 4.5 cm 3.0 - 4.0 / 2.7 - 3.8 cm M-MODE AV Cusp Separation MM 2.0 cm DOPPLER AI Peak Velocity 391.0 cm/s AI Peak Gradient 61.2 mmHg AI Pressure Half Time 510.0 ms Mitral E Point Velocity 112.0 cm/s Mitral A Point Velocity 85.7 cm/s Mitral E to A Ratio 1.3 TR Peak Velocity 284.0 cm/s TR Peak Gradient 32.3 mmHg Right Atrial Pressure 5.0 mmHg Pulmonary Artery Systolic Pressu 37.3 mmHg Right Ventricular Systolic Press 37.3 mmHg FINDINGS LEFT VENTRICLE Mildly dilated left ventricle. Mild concentric left ventricular hypertrophy. The left ventricular systolic function is mzwzioab-nl-lruayde reduced with an estimated ejection fra ction in the range of 35-40%. There is global left ventricular dysfunction. There is abnormal septal motion consistent with an intraventricular conduction delay. RIGHT VENTRICLE Normal right ventricular size and systolic function. LEFT ATRIUM The left atrial size is normal. RIGHT ATRIUM The right atrial size is normal. ATRIAL SEPTUM Normal atrial septal thickness without atrial level shunting by limited color doppler interrogation. AORTA The aortic root and proximal ascending aorta are normal in size on limited imaging. MITRAL VALVE Mitral annular calcification is present. Nurz-kf-lpuonovo mitral valve regurgitation. AORTIC VALVE Aortic valve sclerosis is present. Trace aortic valve regurgitation. TRICUSPID VALVE The estimated pulmonary arterial pressure is 37 mmHg. There is trace tricuspid valve regurgitation. PULMONARY VALVE Mild pulmonary valve regurgitation. VESSELS The inferior vena cava is normal in size. PERICARDIUM No pericardial effusion. Giacomo Emmanuel MD, FACC Edited by: data warehouse administrator data warehouse administrator (Electronically Signed) Final Date:06 February 2018 13:08 Amended: 06 February 2018 14:01
[2018-02-06] MEDS: KCL 20 mEq/NACL 0.45% Inj 1,000 ML IV.CONT SCH (14:35)
[2018-02-06] MEDS: Enoxaparin Inj 30 MG/0.3 ML Syringe SQ SCH (16:53)
--- NOTE | 2018-02-06 17:39 | ECG ---
Date Performed: 02/05/2018 Time Performed: 13:00:01 PTAGE: 87 years EKG: ELECTRONIC VENTRICULAR PACEMAKER ABNORMAL RHYTHM ECG INTERPRETATION BASED ON A DEFAULT AGE OF 40 YEARS PREVIOUS TRACING : 12/27/2017 14.06 Since the previous tracing, no significant change not ed DOCTOR: Catherine Weller Interpretating Date/Time 02/06/2018 17:38:06
--- NOTE | 2018-02-06 17:40 | ECG ---
Date Performed: 02/05/2018 Time Performed: 16:52:37 PTAGE: 87 years EKG: ELECTRONIC ATRIAL PACEMAKER ELECTRONIC VENTRICULAR PACEMAKER ABNORMAL RHYTHM ECG PREVIOUS TRACING : 02/05/2018 13.00 Since the previous tracing, no significant change noted DOCTOR: Catherine Weller Interpretating Date/Time 02/06/2018 17:38:20
[2018-02-06] MEDS: Acetaminophen 325 MG Tablet PO PRN (17:51)
--- NOTE | 2018-02-06 19:23 | P.PNIM ---
Subjective Interval history: No new complaints. Physical Exam Vital signs: Vital Signs 02/05/18 20:00 02/05/18 20:10 02/05/18 23:00 Temperature 97.9 F Pulse Rate 63 63 67 Respiratory Rate 18 18 Blood Pressure 164/77 H 172/74 H Pulse Oximetry 94 L 94 L 92 L 02/06/18 03:00 02/06/18 04:00 02/06/18 08:27 Temperature 98.5 F 98.5 F Pulse Rate 58 L 58 L Respiratory Rate 16 16 Blood Pressure 130/61 130/61 Pulse Oximetry 92 L 92 L 97 02/06/18 09:00 Temperature Pulse Rate 60 Respiratory Rate Blood Pressure Pulse Oximetry Intake & Output 02/06/18 02/06/18 02/07/18 06:59 18:59 06:59 Intake Total 580 / 580 1000 / 1000 Output Total 1175 / 1175 Balance -595 / -595 1000 / 1000 Intake: IV 100 / 100 1000 / 1000 Potassium Chlor 20 mEq/NACL 0. 1000 / 1000 45% Inj 1,000 ML @ 84 mls/hr IV .CONT .[id number] [facility] Rx#:[id number] Levaquin 500 mg Premix Inj 500 100 / 100 mg In 100 ml @ 100 mls/hr IV. SIG Q24H [facility] Rx#:[id number] Oral 480 / 480 Output: Urine Amount (Catheter) 1175 / 1175 Indwelling Urethral Catheter 1175 / 1175 Other: # Bowel Movements 0 Weight On Admission 74.5 kg Narrative: GENERAL: This is a well-nourished, well-developed patient, in no apparent distress. CARDIOVASCULAR: Regular rate and rhythm without murmurs, gallops, or rubs. RESPIRATORY: Clear to auscultation. Breath sounds equal bilaterally. No wheezes , rales, or rhonchi. GASTROINTESTINAL: Abdomen soft, non-tender, nondistended. Normal active bowel sounds MUSCULOSKELETAL: Extremities without clubbing, cyanosis, or edema. NEURO: Alert & Oriented x2, but confused at times. - Urinary Catheter Management Indwelling Urethral Catheter Cath placed during this visit: yes Reason for continuing: Other continuation reason Insertion date: 02/05/18 Insertion time: 14:30 Results - Labs CBC & Chem 7: 02/07/18 04:55 02/07/18 04:55 Laboratory Results - last 24 hr 02/05/18 02/05/18 02/06/18 14:30 16:50 04:07 WBC 7.3 RBC 3.53 L Hgb 10.7 L Hct 31.9 L MCV 90.4 MCH 30.3 MCHC 33.5 RDW 14.9 Plt Count 171 MPV 8.4 Neut % (Auto) 75.2 H Lymph % (Auto) 13.6 [place] % (Auto) 9.5 H Eos % (Auto) 1.4 Baso % (Auto) 0.3 Neut # (Auto) 5.5 Lymph # (Auto) 1.0 [place] # (Auto) 0.7 Eos # (Auto) 0.1 Baso # (Auto) 0.0 WBC Differential . Differential Comment Auto diff final Sodium Potassium Chloride Carbon Dioxide Anion Gap BUN Creatinine Estimated GFR Random Glucose Calcium Magnesium Total Creatine Kinase 5198 H CK-MB (CK-2) 106.4 H CK-MB (CK-2) % 2.0 Troponin I Greater than 40.00 H* Urine Color Yellow Urine Clarity Cloudy H Urine pH 5.0 Ur Specific [place] 1.014 Urine Protein 100 H Urine Glucose (UA) Negative Urine Ketones Negative Urine Occult Blood Large H Urine Nitrate Negative Urine Bilirubin Negative Urine Urobilinogen Less than 2 Ur Leukocyte Esterase Small H Urine RBC 1 Urine WBC 19 H Ur Squamous Epith Cells 1 Ur Transition Epith Cell <1 Urine Bacteria Occasional H Micro UA Comment Cath-culture ind Urine Culture Comments Cath-cult indicated 02/06/18 04:07 WBC RBC Hgb Hct MCV MCH MCHC RDW Plt Count MPV Neut % (Auto) Lymph % (Auto) [place] % (Auto) Eos % (Auto) Baso % (Auto) Neut # (Auto) Lymph # (Auto) [place] # (Auto) Eos # (Auto) Baso # (Auto) WBC Differential Differential Comment Sodium 141 Potassium 4.3 Chloride 106 Carbon Dioxide 20.9 L Anion Gap 14 BUN 64 H Creatinine 1.91 H Estimated GFR 33 L Random Glucose 109 H Calcium 10.2 H Magnesium 2.3 Total Creatine Kinase CK-MB (CK-2) CK-MB (CK-2) % Troponin I Urine Color Urine Clarity Urine pH Ur Specific [place] Urine Protein Urine Glucose (UA) Urine Ketones Urine Occult Blood Urine Nitrate Urine Bilirubin Urine Urobilinogen Ur Leukocyte Esterase Urine RBC Urine WBC Ur Squamous Epith Cells Ur Transition Epith Cell Urine Bacteria Micro UA Comment Urine Culture Comments Microbiology 02/05/18 14:30 Catheterized Urine Urine Culture - Preliminary gram negative rods - Imaging ITS Impressions Chest X-Ray 02/05/18 13:22 CONCLUSION: 1. Diminished lung volumes and probable bibasilar atelectasis. 2. Cardiomegaly and CABG. Head CT 02/05/18 13:22 CONCLUSION: 1. Cerebral atrophy. 2. No acute intracranial abnormality. Assessment and Plan - Assessment (1) Bladder cancer Code(s): C67.9 - Malignant neoplasm of bladder, unspecified Status: Acute Plan: PAST MEDICAL HISTORY: Blood Disorders Gout Heart Disease Hypertension Preferred Language for Healthcare Information (Kazakh) PAST SURGICAL HISTORY: Coronary artery bypass Nephrectomy Pacemaker placement 1. NSTEMI - Case d/w Dr. Emmanuel (02/06/18) - ACS seems less likely - Cardiology recommends medical mgmt - Echocardiogram (02/06) --> unchanged from prior - telemetry - ASA - plavix, isosorbide, simvastatin - prn NTG 2. AMS - CT brain (02/05/18). - no acute findings - IVS - observe - Urine Cx (02/05) --> gram negative rods - continue IVFs - renal function improving - repeat CBC/BMP in AM - anticipate transfer to gen medical floor 02/07 - PT 3. HTN,essential, chronic - stable - continue norvasc, coreg, losartan 4. 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 Aparicio - pt is receiving chemotherapy per Oncology
[2018-02-06] MEDS: Levofloxacin 250 mg Premix Inj 250 MG/50 ML PIGGYBACK IV.SIG SCH (21:05)
[2018-02-07] MEDS: Acetaminophen 325 MG Tablet PO PRN ×2 (01:03→09:37)
[2018-02-07] MEDS: KCL 20 mEq/NACL 0.45% Inj 1,000 ML IV.CONT SCH ×2 (02:24→15:42)
[2018-02-07 05:05] LABS: Baso % (Auto) 0.4 % (0.0-2.0); Eos # (Auto) 0.1 th/mm3 (0.0-0.4); Eos % (Auto) 1.4 % (0.0-4.0); Hematocrit 31.4 % (39.0-51.0); Hemoglobin 10.5 gm/dL (13.0-17.0); Lymph % (Auto) 12.4 % (9.0-44.0); Mean Corpuscular HGB Conc 33.5 % (32.0-36.0); Mean Corpuscular Volume 89.7 fL (80.0-100.0); Mean Platelet Volume 8.2 fL (7.0-11.0); Mono # (Auto) 0.8 th/mm3 (0.0-0.9); Mono % (Auto) 9.7 % (0.0-8.0); Neut # (Auto) 6.2 th/mm3 (1.8-7.7); Neut % (Auto) 76.1 % (16.0-70.0); Platelet Count 163 th/mm3 (150-450); Red Cell Distribution Width 14.6 % (11.6-17.2); White Blood Count 8.1 th/mm3 (4.0-11.0)
[2018-02-07 05:36] LABS: Calcium 10.3 mg/dL (8.5-10.1); Carbon Dioxide 22.6 meq/L (21.0-32.0); Magnesium 2.2 mg/dL (1.5-2.5); Potassium 4.7 meq/L (3.5-5.1)
[2018-02-07] MEDS: Senna/Docusate Sodium 8.6/50 MG Tablet PO SCH ×2 (09:34→21:15)
[2018-02-07] MEDS: amLODIPine 10 MG Tablet PO SCH (09:34)
[2018-02-07] MEDS: Carvedilol 12.5 MG Tablet PO SCH ×3 (09:34→21:28)
[2018-02-07] MEDS: Isosorbide Mononitrate 30 MG ER 24HR Tablet (Imdur) PO SCH (09:34)
[2018-02-07] MEDS: Pantoprazole Sodium 20 MG DR Tablet PO SCH (09:34)
[2018-02-07] MEDS: Magnesium Oxide 400 MG Tablet PO SCH (10:56)
--- NOTE | 2018-02-07 12:50 | XR ---
EXAM DATE: 02/07/2018 12:41 PM EDT AGE/SEX: 87 years / Male INDICATIONS: Fever CLINICAL DATA: This is the patient's subsequent encounter. Patient reports that signs and symptoms h ave been present for 2 days and indicates a pain score of 0/10. MEDICAL/SURGICAL HISTORY: Cardiovascular disease. Congestive heart failure. Hypertension. CAB G. Pacemaker. COMPARISON: C, CHEST 1V SINGLE AP, 02/05/2018. . FINDINGS: On today's examination there is some mild prominence of the pulmonary vasculature suggestive of pulmo nary venous congestion. There continues to be some mild bibasal atelectasis. Otherwise, no significan t changes are seen compared to the prior study. The heart size is enlarged but stable. There is no ev idence of pneumothorax. No significant pleural effusions. The bony structures are stable. CONCLUSION: 1. Pulmonary venous congestion. 2. Mild bibasilar atelectasis. 3. No significant changes. Electronically signed by: Eric Jackson MD 02/07/2018 12:49 PM EDT
[2018-02-07] MEDS: Enoxaparin Inj 30 MG/0.3 ML Syringe SQ SCH (15:44)
[2018-02-07] MEDS ORDERED: Morphine Inj 4 MG/ML Vial IV.PUSH PRN (17:46)
[2018-02-07] MEDS: Morphine Inj 4 MG/ML Vial IV.PUSH PRN (18:33)
[2018-02-07] MEDS: Levofloxacin 250 mg Premix Inj 250 MG/50 ML PIGGYBACK IV.SIG SCH (21:15)
[2018-02-08] MEDS: Morphine Inj 4 MG/ML Vial IV.PUSH PRN ×5 (00:46→23:45)
[2018-02-08] MEDS: Carvedilol 12.5 MG Tablet PO SCH ×2 (09:36→22:44)
[2018-02-08] MEDS: Isosorbide Mononitrate 30 MG ER 24HR Tablet (Imdur) PO SCH (09:40)
[2018-02-08] MEDS: amLODIPine 10 MG Tablet PO SCH (09:40)
[2018-02-08] MEDS: Pantoprazole Sodium 20 MG DR Tablet PO SCH (09:43)
[2018-02-08] MEDS: Senna/Docusate Sodium 8.6/50 MG Tablet PO SCH ×2 (09:44→22:44)
--- NOTE | 2018-02-08 12:59 | P.PNIM ---
Subjective Interval history: LATE ENTRY FOR 02/07/18. MY NOTE DID NOT SAVE IN [employer]. I rounded on pt twice yesterday. Initially around 10:30AM. I then met with the pt/family again from approximately 5:30 to 6:30PM. Pt speaks only a few shorts sentences at times. Pt's has almost no PO intake. Pt is essentially bedbound and has periods of agitation. Physical Exam Vital signs: Vital Signs 02/07/18 13:00 02/07/18 14:00 02/07/18 15:00 Temperature Pulse Rate 66 60 60 Respiratory Rate Blood Pressure Pulse Oximetry 95 02/07/18 16:00 02/07/18 17:46 02/07/18 19:00 Temperature 98.4 F 98.1 F Pulse Rate 60 66 60 Respiratory Rate 16 Blood Pressure 153/69 H 171/74 H Pulse Oximetry 91 L 02/07/18 20:00 02/07/18 21:00 02/07/18 22:00 Temperature Pulse Rate 60 60 62 Respiratory Rate Blood Pressure Pulse Oximetry 02/07/18 23:00 02/08/18 00:00 02/08/18 01:00 Temperature 97.9 F Pulse Rate 60 60 60 Respiratory Rate Blood Pressure 146/64 H Pulse Oximetry 90 L 02/08/18 02:00 02/08/18 03:00 02/08/18 04:00 Temperature 98.1 F Pulse Rate 60 61 61 Respiratory Rate Blood Pressure 145/67 H Pulse Oximetry 92 L 02/08/18 05:00 02/08/18 06:00 02/08/18 07:00 Temperature Pulse Rate 61 60 63 Respiratory Rate Blood Pressure Pulse Oximetry 02/08/18 08:00 02/08/18 08:04 02/08/18 09:00 Temperature 96.9 F L Pulse Rate 60 62 62 Respiratory Rate 32 H Blood Pressure 169/74 H Pulse Oximetry 93 L 02/08/18 10:00 02/08/18 11:37 Temperature 96.5 F L Pulse Rate 60 60 Respiratory Rate 30 H Blood Pressure 130/62 Pulse Oximetry 93 L Intake & Output 02/07/18 02/08/18 02/08/18 18:59 06:59 18:59 Intake Total 1208 / 1208 410 / 410 Output Total 600 / 600 950 / 950 Balance 608 / 608 -540 / -540 Weight 77 kg Intake: IV 728 / 728 50 / 50 Potassium Chlor 20 mEq/NACL 0. 728 / 728 45% Inj 1,000 ML @ 84 mls/hr IV .[id number] Rx#:[id number] Levaquin 250 mg Premix Inj 250 50 / 50 mg In 50 ml @ 50 mls/hr IV.SIG Q24H [facility] Rx#:[id number] Oral 480 / 480 360 / 360 Output: Urine Amount (Catheter) 600 / 600 950 / 950 Indwelling Urethral Catheter 600 / 600 950 / 950 Other: Date of Last Bowel Movement 02/04/18 Narrative: GENERAL: This is a well-nourished, well-developed patient, in no apparent distress. CARDIOVASCULAR: Regular rate and rhythm without murmurs, gallops, or rubs. RESPIRATORY: Clear to auscultation. Breath sounds equal bilaterally. No wheezes , rales, or rhonchi. GASTROINTESTINAL: Abdomen soft, non-tender, nondistended. Normal active bowel sounds MUSCULOSKELETAL: Extremities without clubbing, cyanosis, or edema. NEURO: Alert & Oriented to self. Pt interacts with family. Pt speak occasional short sentences, usually in Maltese. Pt is generally unable to open his eyes to converse. - Urinary Catheter Management Indwelling Urethral Catheter Cath placed during this visit: yes Reason for continuing: Other continuation reason Insertion date: 02/05/18 Insertion time: 14:30 Results - Labs CBC & Chem 7: 02/07/18 04:55 02/07/18 04:55 Microbiology 02/06/18 04:07 Blood - Peripheral Aerobic Blood Culture - Preliminary No growth in 2 days 02/06/18 04:07 Blood - Peripheral Anaerobic Blood Culture - Preliminary No growth in 2 days 02/06/18 04:15 Blood - Peripheral Aerobic Blood Culture - Preliminary No growth in 2 days 02/06/18 04:15 Blood - Peripheral Anaerobic Blood Culture - Preliminary No growth in 2 days - Imaging Impressions Chest X-Ray 02/06/18 00:00 CONCLUSION: 1. Pulmonary venous congestion. 2. Mild bibasilar atelectasis. 3. No significant changes. Assessment and Plan - Assessment (1) Bladder cancer Code(s): C67.9 - Malignant neoplasm of bladder, unspecified Status: Acute Plan: PAST MEDICAL HISTORY: Blood Disorders Gout Heart Disease Hypertension Preferred Language for Healthcare Information ([place]an) PAST SURGICAL HISTORY: Coronary artery bypass Nephrectomy Pacemaker placement 1. NSTEMI - Case d/w Dr. Emmanuel (02/06/18) - ACS seems less likely - Cardiology recommends medical mgmt - Echocardiogram (02/06) --> unchanged from prior - telemetry - ASA - plavix, isosorbide, simvastatin - prn NTG 2. AMS - CT brain (02/05/18). - no acute findings - IVS - observe - Urine Cx (02/05) --> klebsiella, but CFU below 10k - continue IVFs - renal function improving - PT 3. HTN,essential, chronic - stable - continue norvasc, coreg, losartan 4. 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 Aparicio - pt is receiving chemotherapy per Oncology - Pt is actively dying. - case was discussed at length at the bedside in the presence of pt's , daughter, and 2 granddaughters - all questions were answered to the best of my ability - Pt affirmed that he does NOT want resuscitation and code status was changed to DNR - IVFs stopped - telemetry stopped - IV morphine prn pain or agitation - Pt is requesting discharge to home - Pt would need hospice for discharge to home - does NOT want hospice at this time. - There appears to be some family discord - I will attempt to keep pt comfortable and provide supportive care - Hospice would be most appropriate - will meet with pt/family again 02/08/18
--- NOTE | 2018-02-08 13:06 | P.PNIM ---
Subjective Interval history: No new complaints. Minimal oral intake. Pt's agitation seems much improved from yesterday evening with prn morphine. Physical Exam Vital signs: 02/08/18 08:04 02/08/18 09:00 02/08/18 10:00 Temperature 96.9 F L Pulse Rate 62 62 60 Respiratory Rate 32 H Blood Pressure 169/74 H Pulse Oximetry 93 L 02/08/18 11:37 Temperature 96.5 F L Pulse Rate 60 Respiratory Rate 30 H Blood Pressure 130/62 Pulse Oximetry 93 L Narrative: GENERAL: NAD CARDIOVASCULAR: Regular rate and rhythm without murmurs, gallops, or rubs. RESPIRATORY: Clear to auscultation. Breath sounds equal bilaterally. No wheezes , rales, or rhonchi. GASTROINTESTINAL: Abdomen soft, non-tender, nondistended. Normal active bowel sounds MUSCULOSKELETAL: Extremities without clubbing, cyanosis, or edema. NEURO: Pt speaking a few words in Urdu - Urinary Catheter Management Indwelling Urethral Catheter Cath placed during this visit: yes Reason for continuing: Other continuation reason Insertion date: 02/05/18 Insertion time: 14:30 Results - Labs CBC & Chem 7: 02/07/18 04:55 02/07/18 04:55 Microbiology 02/06/18 04:07 Blood - Peripheral Aerobic Blood Culture - Preliminary No growth in 2 days 02/06/18 04:07 Blood - Peripheral Anaerobic Blood Culture - Preliminary No growth in 2 days 02/06/18 04:15 Blood - Peripheral Aerobic Blood Culture - Preliminary No growth in 2 days 02/06/18 04:15 Blood - Peripheral Anaerobic Blood Culture - Preliminary No growth in 2 days Assessment and Plan - Assessment (1) Bladder cancer Code(s): C67.9 - Malignant neoplasm of bladder, unspecified Status: Acute Plan: PAST MEDICAL HISTORY: Blood Disorders Gout Heart Disease Hypertension Preferred Language for Healthcare Information (Gabonese) PAST SURGICAL HISTORY: Coronary artery bypass Nephrectomy Pacemaker placement 1. NSTEMI - Case d/w Dr. Emmanuel (02/06/18) - ACS seems less likely - Cardiology recommends medical mgmt - Echocardiogram (02/06) --> unchanged from prior - telemetry - ASA - plavix, isosorbide, simvastatin - prn NTG 2. AMS - CT brain (02/05/18). - no acute findings - IVS - observe - Urine Cx (02/05) --> klebsiella, but CFU below 10k - continue IVFs - renal function improving - PT 3. HTN,essential, chronic - stable - continue norvasc, coreg, losartan 4. 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 Aparicio - pt is receiving chemotherapy per Oncology - Pt is actively dying. - DNR per conversation with pt/family 02/07/18 - pt appears comfortable - continue prn morphine - case d/w pt's daughter at the bedside at approximately 12PM - hospice would be most appropriate. I offered hospice yesterday, but declined. - will meet with again, later this afternoon - continue supportive care. -
[2018-02-08] MEDS: Magnesium Oxide 400 MG Tablet PO SCH (13:29)
[2018-02-08] MEDS: Enoxaparin Inj 30 MG/0.3 ML Syringe SQ SCH (16:20)
[2018-02-08] MEDS: Levofloxacin 250 mg Premix Inj 250 MG/50 ML PIGGYBACK IV.SIG SCH (22:44)
--- NOTE | 2018-02-09 06:16 | P.DN ---
Pronouncement Note - Date and Time of Date of : 02/09/18 Time of : 04:05 - Additional Data Confirmation of : no pulse, no respirations, no heart sounds, pupils fixed and dilated Family: at bedside (Daughter) Attending/PCP notified?: Yes (Resident team contacted by Dr. Tavares, covering for Dr. Jaquez. ) Attending physician: Woo Jaquez, DO Was code activated?: No (Patient's code status: DNR) Advance directives: Unknown
--- NOTE | 2018-02-09 09:12 | P.PNADD ---
Addendum to Inpatient Note Reason for Addendum: Additional Documentation Additional information: I was contacted around 4 AM today as pt was rapidly declining. At time of my notification he was having agonal breathing and only minimal carotid pulse on palpation. He soon became pulseless and remained unresponsive. I confirmed his admission dx and that he was DNR with hospice being offered prior to his demise. Dr Duffy, resident collection supervisor, was notified and pronounced . Family aware and I have now made Dr Jaquez aware as well.
--- NOTE | 2018-02-09 11:15 | P.DN ---
Discharge Sum: Prov - Provider Primary care physician: UNKNOWN Admitting clinician: Woo Jaquez Attending physician on admission: Woo Jaquez Consults: Dr. Giacomo Emmanuel, Cardiology Pronouncing clinician: Aubree Sherwood Discharge Sum: Diag - Contributing Factors (1) Bladder cancer - Discharge Sum: Summary - Date and Time Date of admission: 02/05/18 16:40 Pt is an 87 y/o M with prior h/o CAD, s/p CABG. Pt with 4. Metastatic stage IV Urothelial Cancer with lung metastasis under the care of Oncology, Dr. Aparicio. Pt was receiving palliative chemotherapy per Oncology. Pt admitted with AMS and elevated troponin. Pt was evaluated by Cardiology d/t elevated troponin. Cardiology did NOT feel that pt need interventional w/u d/t underlying cancer. Pt had marked decline in performance status from previous admissions which was also noted in pt's last oncology note from late January 2018. Pt continued to decline during this admission. I had several prolonged conference with pt's family: , daughters, and grandchildren as outlined in previous notes. Pt/family request DNR and comfort measures. Pt 02/09/18. Date of : 02/09/18 Time of : 04:05 - Additional Data Confirmation of as documented by pronouncing clinician: no pulse, no respirations, no heart sounds Family: at bedside Attending/PCP notified?: Yes Attending physician: Woo Jaquez, DO Hospice patient?: No
--- NOTE | 2018-03-05 11:55 | P.DS ---
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 s/o left nephroureterectomy. Pt follows with Dr. Markus Gill. Pt had a port placed early January. Pt is being treated with Keytruda. Pt was most recently hospitalized at [facility] 12/26 - 12/28/17 d/t GIB. Pt had EGD (12/27/17) which showed gastric mass which was felt to likely be a metastic lesion. Bx was taken. Pathology did NOT show malignancy. Pt presented to the [facility] ER 02/05/18 with c/o AMS. Pt was found to be clinically stable without particular confusion. However, pt was found to have elevated troponin of 40. Pt denies c/o chest pain or angina equivalents. Case was discussed between ER and cardiology. Pt will be admitted to [facility] for further evaluation and treatment. DS: Diagnosis - Discharge Diagnosis (1) Bladder cancer Status: Acute DS: Summary Hospital Course: *LIVE* [facility] Discharge Summary Patient Name: Demarcus Bettencourt Date of : 1930 Patient Status: Inpatient Attending Provider: Woo Jaquez Date: 02/09/18 10:52 Initialization Date: 02/09/18 10:52 Discharge Sum: Prov - Provider Primary care physician: UNKNOWN Admitting clinician: Woo Jaquez Attending physician on admission: Woo Jaquez Consults: Dr. Giacomo Emmanuel, Cardiology Pronouncing clinician: Aubree Sherwood Discharge Sum: Diag - Contributing Factors (1) Bladder cancer - Discharge Sum: Summary - Date and Time Date of admission: 02/05/18 16:40 Pt is an 87 y/o M with prior h/o CAD, s/p CABG. Pt with 4. Metastatic stage IV Urothelial Cancer with lung metastasis under the care of Oncology, Dr. Aparicio. Pt was receiving palliative chemotherapy per Oncology. Pt admitted with AMS and elevated troponin. Pt was evaluated by Cardiology d/t elevated troponin. Cardiology did NOT feel that pt need interventional w/u d/t underlying cancer. Pt had marked decline in performance status from previous admissions which was also noted in pt's last oncology note from late January 2018. Pt continued to decline during this admission. I had several prolonged conference with pt's family: , daughters, and grandchildren as outlined in previous notes. Pt/family request DNR and comfort measures. Pt 02/09/18. - Time Spent with Patient Total time spent providing and/or coordinating discharge services: Less than 30 minutes Exam Vital signs: Pt Narrative: Pt . see note & last progress note. Results Procedures completed during hospitalization: n/a - Impressions ITS Impressions Head CT 02/05/18 13:22 CONCLUSION: 1. Cerebral atrophy. 2. No acute intracranial abnormality. Chest X-Ray 02/06/18 00:00 CONCLUSION: 1. Pulmonary venous congestion. 2. Mild bibasilar atelectasis. 3. No significant changes. Discharge Plan - Discharge Disposition Patient Disposition: 20 - Discharge Details Date/Time: 02/09/18 10:30 - Physicians Team Primary Care Provider: UNKNOWN, Attending Provider: Woo Jaquez Other Providers: ; Giacomo Emmanuel MD
== END 2018-02-09 10:30 | disposition expired ==
LOC: NEPE 12:38 → NEDA 16:40 → HCPC 18:00 → HCVI 18:06 → HCPC 20:10
PROVIDERS: ADMIT Hospitalist; ATTEND Hospitalist